=== PATIENT | female | born 1945 | race Caucasian/White ===

== ENCOUNTER 2020-03-30 22:44 | Inpatient (IN) | payer MEDICARE, SELFPAY ==
--- NOTE | ~2020-03-30 | CT_ITS ---
EXAMINATION: CTA chest PE protocol EXAM DATE: 03/31/2020 01:05 INDICATION: Elevated d-dimer. Dyspnea. TECHNIQUE: Spiral CTA of the chest (pulmonary arteries) was performed with 100 cc Omnipaque 350 intr avenous contrast injection. Images were acquired during the pulmonary arterial phase. Coronal maxi mum intensity projection 3D-reconstructions were created by the technologist on dedicated workstation . Axial, coronal and sagittal reformatted images were reviewed. The dose-length product (DLP) for t his examination was 715.57 mGy-cm. The exposure was tailored according to patient size (auto mA exp osure control), and iterative reconstruction (ASIR) was used as additional dose reduction technique. There is no prior study for comparison. FINDINGS: Positive for subsegmental right lower lobe pulmonary embolism, low clot burden. No thoracic aortic dissection. There is mild cardiomegaly. There are small to moderate pleural effusions there is interlobular septal thickening with mild interspersed groundglass opacities, evidence of pulmonary edema. Appearance is most consistent with CHF exacerbation. Tracheobronchial tree is patent. There is prevascular lymph node measuring 2.2 x 1.6 cm. Similar sized There is no pneumothorax. Ther e is mild coronary arterial calcification, arterial sclerosis. Upper abdomen is unremarkable. Ther e is moderate thoracic spondylosis without osteoblastic or osteolytic lesions identified. IMPRESSION: 1. Right lower lobe subsegmental pulmonary embolism. 2. Cardiomegaly, pulmonary edema. 3. Small to moderate pleural effusions. 4. Mediastinal, prevascular lymphadenopathy probably reactive but a follow-up chest CT should be obt ained in 3 months. Reviewed, dictated and finalized at location D. ITAL SUPERINTENDENT IMPRESSION: 1. Right lower lobe subsegmental pulmonary embolism. 2. Cardiomegaly, pulmonary edema. 3. Small to moderate pleural effusions. 4. Mediastinal, prevascular lymphadenopathy probably reactive but a follow-up chest CT should be obtained in 3 months.
--- NOTE | ~2020-03-30 | XR_ITS ---
EXAMINATION: XR chest 2V DATE: 03/30/2020 23:42 INDICATION: Dyspnea. TECHNIQUE: Frontal and lateral views of the chest were obtained on 2 radiographs. COMPARISON: None. FINDINGS: There is a diffuse interstitial pattern in the lungs, consistent with mild pulmonary edema. No pleural effusion or pneumothorax. The heart size is normal. IMPRESSION: 1. Mild pulmonary edema. Reviewed, dictated and finalized at location A. ER OPERATOR HELPER IMPRESSION: 1. Mild pulmonary edema.
--- NOTE | 2020-03-30 22:53 | ED.SOB ---
HPI - SOB/Dyspnea General Chief Complaint: Shortness of Breath/Dyspnea Stated Complaint: AMB Time Seen by Provider: 03/30/20 23:02 Source: patient and EMS Mode of arrival: EMS Limitations: no limitations History of Present Illness HPI Narrative: patient states that she has felt like there has been some pressure in her abdomen pushing up into her chest. This has been going on for couple of months. Today her shortness of breath became worse. She has a history of hypertension and type 2 diabetes but is not been to the doctor for refills in several months. She also states she has been having black stools for 2 months. She has been using some Gas-X to help with the abdominal pressure but today it is not helping. EM TS report that the house is in shambles, with bottles of urine on the floor, used batteries, or ill, there is no heat and there was a space heater near her bed. MD elicited complaint: shortness of breath Pertinent past history: diabetes Onset (ago): day(s) (1) Timing: intermittent and progressively worsening Severity: moderate Exacerbating factors: lying flat Relieving factors: nothing Known history of: diabetes Treatment prior to arrival: none Related Data Home oxygen amount: none Home Medications Medication Instructions Recorded Confirmed bupropion HCl 300 mg PO DAILY 03/30/20 03/30/20 carvedilol 25 mg PO DAILY 03/30/20 03/30/20 escitalopram oxalate 20 mg PO DAILY 03/30/20 03/30/20 furosemide 40 mg PO DAILY 03/30/20 03/30/20 insulin glargine [Lantus Solostar 50 unit SUBCUT HS 03/30/20 03/30/20 U-100 Insulin] insulin lispro 30 unit SUBCUT TIDWMEAL 03/30/20 03/30/20 lisinopril 40 mg PO DAILY 03/30/20 03/30/20 rosuvastatin [Crestor] 20 mg PO DAILY 03/30/20 03/30/20 Allergies Allergy/AdvReac Type Severity Reaction Status Date / Time No Known Allergies Allergy Verified 03/30/20 23:21 Review of Systems Review of Systems: All systems reviewed & are unremarkable except as noted in HPI and below Constitutional: Constitutional: Denies chills and Denies fever(s) ENT: Reports system reviewed and no additional complaints, except as documented Cardiovascular: Cardiovascular: Reports no additional cardiovascular complaints Respiratory: Respiratory: Reports as per HPI, Denies cough and Denies wheezing Gastrointestinal: Gastrointestinal: Reports melena and Reports bloating Genitourinary: Genitourinary: Reports no additional female genitourinary complaints Musculoskeletal: Musculoskeletal: Reports no additional musculoskeletal complaints [facility] Past Medical History Medical History (Updated 03/31/20 @ 03:12 by Gadiel Grajeda MD) Anxiety and depression Hyperlipidemia Hypertension Type 2 diabetes mellitus Social History Social History (Updated 03/30/20 @ 23:49 by Gadiel Grajeda MD) Smoking status: Former smoker Alcohol intake: never Substance use: never Exam Const: General: no acute distress and ill appearing Nutritional Appearance: well nourished Orientation/consciousness: patient oriented x3 HENMT: Head: normal to inspection and atraumatic Ears: hearing grossly normal bilaterally and external ears normal General nose exam: Normal external nose present Face and sinus: normal facial exam Eyes: Conjunctivae: conjunctival abnormality bilateral pallor Pupils: Equal, round and reactive pupils present Neck: Neck: normal visual inspection Resp: Effort & Inspection: normal respiratory effort Auscultation: clear to auscultation bilaterally Cardio: Rate: regular rate and tachycardic GI: GI Palp: Yes Soft to palpation and No Tenderness to palpation present (GI) Auscultation: normal bowel sounds Back/Spine/Pelvis: Cervical Spine: cervical ROM normal Thoracic/Lumbar Spine: thoraco-lumbar ROM normal Skin: General skin exam: pallor Rashes: no rashes Neuro: General: patient oriented x3, moves all extremities and no focal motor deficits Speech: normal speech Extrem: General: normal to
[2020-03-30 23:00] VITALS: BP 184/99; PULSE 129; RESP 22; TEMP 36.6; O2SAT 89
[2020-03-30 23:15] VITALS: PULSE 129
[2020-03-30 23:20] VITALS: O2SAT 88
[2020-03-30 23:37] LABS: Basophils Absolute Auto 0.03 K/mm3 (0.00-0.10); Basophils Percent Auto 0.2 % (0.0-1.0); Eosinophils Absolute Auto 0.16 K/mm3 (0.02-0.50); Eosinophils Percent Auto 1.3 % (1.0-6.0); Hematocrit 39.8 % (35.0-42.0); Hemoglobin 13.3 g/dL (11.7-13.8); Immature Granulocyte Absolute 0.06 K/mm3 (0.00-0.00); Immature Granulocyte Percent A 0.5 % (0.0-0.0); Lymphocytes Absolute Auto 1.75 K/mm3 (1.10-4.50); Lymphocytes Percent Auto 14.5 % (18.0-42.0); Mean Corpuscular HGB Conc 33.4 g/dL (32.0-36.0); Mean Corpuscular Hemoglobin 30.9 pg (27.0-31.0); Mean Corpuscular Volume 92.3 fL (78.0-102.0); Mean Platelet Volume 10.3 fl (9.2-11.8); Monocytes Absolute Auto 0.64 K/mm3 (0.10-0.90); Monocytes Percent Auto 5.3 % (2.0-11.0); Neutrophils Absolute Auto 9.4 K/mm3 (1.7-7.2); Neutrophils Percent Auto 78.2 % (50.0-70.0); Platelet Count Result 271 K/mm3 (150-420); Red Blood Count 4.31 M/mm3 (4.20-5.40); Red Cell Distribution Width 12.1 % (11.6-14.4); White Blood Count 12.1 K/mm3 (4.8-10.8)
[2020-03-30 23:44] LABS: Hemoglobin A1C 10.4 % (<5.7)
[2020-03-30 23:48] VITALS: PULSE 128; RESP 17; O2SAT 99
[2020-03-30 23:49] LABS: Partial Thromboplastin Time 25.9 SEC (23.90-30.70)
[2020-03-30 23:52] LABS: Alanine Aminotransferase 18 U/L (14-59); Albumin Level 3.1 g/dL (3.4-5.0); Alkaline Phosphatase 138 U/L (46-116); Anion Gap 12 mmol/L (8-16); Aspartate Amino Transferase 22 U/L (15-37); Bilirubin,Total 0.5 mg/dL (0.00-1.00); Blood Urea Nitrogen 15 mg/dL (7-18); Calcium 9.3 mg/dL (8.5-10.1); Carbon Dioxide 26 mmol/L (21-32); Chloride 100 mmol/L (98-108); Estimated CRCL calculation 46 ml/min; Estimated Glomerular Filt Rate 46; Magnesium 1.4 mg/dL (1.8-2.4); Osmolality Calculated 304 mOsm/kg (285-295); Potassium 4.6 mmol/L (3.5-5.1); Sodium 138 mmol/L (136-145); Total Protein 7.8 g/dL (6.4-8.2)
[2020-03-30 23:55] LABS: BNP 623 pg/mL (0-100)
[2020-03-30 23:56] LABS: Glucose 431 mg/dL (70-99)
[2020-03-31] VITALS (35 sets, daily range): BP systolic 108–204; BP diastolic 58–136; PULSE 96–140; RESP 12–30; TEMP 36.6–37.6; O2SAT 91–100; BMI 35.3
[2020-03-31 00:08] LABS: Occult Blood Negative (Negative)
[2020-03-31 00:11] LABS: D Dimer 2.82 mg/L (0.19-0.50)
[2020-03-31] MEDS: INSULIN HUMAN REGULAR (*BKC) 100 UNITS/ML 20 UNITS SUB-Q (00:18)
[2020-03-31] MEDS: hydrALAZINE HCL 25 MG TABLET PO (01:17)
[2020-03-31] MEDS: cloNIDine HCL 0.2 MG TABLET PO (01:17)
[2020-03-31] MEDS: FUROSEMIDE INJ 40 MG/4 ML VIAL 20 MG IV PUSH (01:24)
[2020-03-31] MEDS: FUROSEMIDE INJ 40 MG/4 ML VIAL IV PUSH ×3 (01:24→16:47)
[2020-03-31 02:22] LABS: Glucose Point of Care 296 (65-105)
--- NOTE | 2020-03-31 02:24 | PC.NURSE ---
Pt. resting more comfortably, VSS at this time. Mon continues to show Junctional Tach. BS now noted at 296. ERP made aware.
--- NOTE | 2020-03-31 03:04 | PC.NURSE ---
ERP spoke c pt. Orders to admit.
--- NOTE | 2020-03-31 04:06 | ADMGEN ---
This patient, Teri Harrington, was admitted to 2nd Floor Room 208-2 with diagnosis of CHF and PE. Patient/family oriented to hospital policies and general routines including ID bracelet, bed and alarms, visiting hours, pain management, procedures, bathroom and other care routines, personal items, smoking policy, room service/diet, and visiting hours. Information on how to activate the Rapid Response Team has been discussed. Patient/Family are encouraged to report perceived risks to care and to ask questions if they do not understand what they are told or what they should do.
[2020-03-31 07:39] LABS: Glucose Point of Care 181 (65-105)
[2020-03-31 08:09] LABS: Hematocrit 37.8 % (35.0-42.0); Hemoglobin 12.6 g/dL (11.7-13.8); Mean Corpuscular HGB Conc 33.3 g/dL (32.0-36.0); Mean Corpuscular Hemoglobin 30.7 pg (27.0-31.0); Mean Platelet Volume 9.9 fl (9.2-11.8); Platelet Count Result 267 K/mm3 (150-420); Red Blood Count 4.11 M/mm3 (4.20-5.40); Red Cell Distribution Width 12.3 % (11.6-14.4); White Blood Count 8.6 K/mm3 (4.8-10.8)
[2020-03-31 08:26] LABS: Alanine Aminotransferase 17 U/L (14-59); Albumin Level 2.9 g/dL (3.4-5.0); Alkaline Phosphatase 111 U/L (46-116); Anion Gap 10 mmol/L (8-16); Aspartate Amino Transferase 13 U/L (15-37); Bilirubin,Total 0.5 mg/dL (0.00-1.00); Blood Urea Nitrogen 15 mg/dL (7-18); Calcium 9.1 mg/dL (8.5-10.1); Carbon Dioxide 29 mmol/L (21-32); Chloride 100 mmol/L (98-108); Estimated CRCL calculation 46 ml/min; Estimated Glomerular Filt Rate 50; Glucose 200 mg/dL (70-99); Osmolality Calculated 294 mOsm/kg (285-295); Potassium 4.9 mmol/L (3.5-5.1); Sodium 139 mmol/L (136-145); Total Protein 6.9 g/dL (6.4-8.2)
[2020-03-31] MEDS: ROSUVASTATIN 5 MG TABLET 20 MG PO (09:10)
[2020-03-31] MEDS: ESCITALOPRAM OXALATE 10 MG TABLET 20 MG PO (09:11)
[2020-03-31] MEDS: lisinopriL 10 MG TABLET 40 MG PO (09:11)
[2020-03-31] MEDS: buPROPion HCL XL (24 HR) 150 MG TABCR 300 MG PO (09:11)
[2020-03-31] MEDS: ENOXAPARIN 100 MG/ML SYRINGE SUB-Q ×2 (09:53→20:52)
--- NOTE | 2020-03-31 10:46 | PM.IMHP ---
H&P: HPI History of Present Illness Date/Time: 03/31/20 10:46 <TOM Klein - Last Filed: 03/31/20 11:10> Chief Complaint: Shortness of breath dyspnea <TOM Klein - Last Filed: 03/31/20 11:10> Narrative: Teri Harrington is a 74 year old female that presented to our ED with shortness of breath and dyspnea. Patient has a past medical history of anxiety and depression, hyperlipidemia, hypertension, and type 2 diabetes. Patient noted that her condition has been declining for several months she has been bed bound as a result of depression for couple of months now. According to patient she developed shortness of breath a couple of days ago and EMS had to be called. Patient does stay at home with her 2 sons. According to EMS patient's living environment was unacceptable. According to the report there are several bottles of urine l throughout the house, floor board were dry rotted, railroad car checker throughout the house. No running water or heat working in the home. Patient has agreed [facility] to a [facility] due to her poor environment.CTA indicate right lower lobe PE, WBC on admission 12.1, creatinine 1.16, glucose 431, magnesium 1.4, occult blood negative patient is being admitted for PE in to rule out congestive heart failure. Patient was given 40 mg of Lasix. the patient denies SOB, CP, palpitation, extremity numbness, lightheadedness, dizziness, constipation, diarrhea, chills, or fever. Patient was hesitant to agree to discharge to a penitentiary due to her concerns of her grown adult sons, she did agree to discharge to a penitentiary. Patient did note she has not been compliant with her medications for approximately 2 months .. <TOM Klein - Last Filed: 03/31/20 11:10> Review of Systems Review of Systems: All systems reviewed & are unremarkable except as noted in HPI and below (10 point system review) <TOM Klein - Last Filed: 03/31/20 11:10> [facility] Past Medical History Medical History: Medical History (Updated 03/31/20 @ 03:12 by Gadiel Grajeda MD) Anxiety and depression Hyperlipidemia Hypertension Type 2 diabetes mellitus <TOM Klein - Last Filed: 03/31/20 11:10> Family History Family History: Family History Mother Breast cancer <TOM Klein - Last Filed: 03/31/20 11:10> Social History Social History: Social History (Updated 03/30/20 @ 23:49 by Gadiel Grajeda MD) Smoking status: Never smoker Alcohol intake: never Substance use: never Gender identity (if verbalized by the patient): Female Sexual Orientation (if Verbalized by the Patient): Straight or Heterosexual Spiritual care concerns: No <TOM Klein - Last Filed: 03/31/20 11:10> Meds Home Medications and Allergies Home medications: Home Medications Medication Instructions Recorded Confirmed Type bupropion HCl 300 mg PO DAILY 03/30/20 03/30/20 History carvedilol 25 mg PO DAILY 03/30/20 03/30/20 History escitalopram oxalate 20 mg PO DAILY 03/30/20 03/30/20 History furosemide 40 mg PO DAILY 03/30/20 03/30/20 History insulin glargine [Lantus Solostar 50 unit SUBCUT HS 03/30/20 03/30/20 History U-100 Insulin] insulin lispro 30 unit SUBCUT TIDWMEAL 03/30/20 03/30/20 History lisinopril 40 mg PO DAILY 03/30/20 03/30/20 History rosuvastatin [Crestor] 20 mg PO DAILY 03/30/20 03/30/20 History <TOM Klein - Last Filed: 03/31/20 11:10> Allergies/Adverse reactions: Allergies Allergy/AdvReac Type Severity Reaction Status Date / Time No Known Allergies Allergy Verified 03/30/20 23:21 <TOM Klein - Last Filed: 03/31/20 11:10> Vital Signs Vital Signs - 24 hr 03/30/20 23:00 03/30/20 23:15 03/30/20 23:20 Temperature 98 F Pulse Rate 129 H 129 H Respiratory Rate 22 H Blood Pressure 184/99 H Pulse Oximetry 89 L 88 L
[2020-03-31 11:03] LABS: Magnesium 1.4 mg/dL (1.8-2.4)
[2020-03-31 11:43] LABS: Glucose Point of Care 285 (65-105)
[2020-03-31 17:00] LABS: Glucose Point of Care 300 (65-105)
[2020-03-31 20:49] LABS: Glucose Point of Care 287 (65-105)
[2020-03-31] MEDS: INSULIN GLARGINE (*BKC) 100 UNITS/ML 25 UNITS SUB-Q (20:52)
--- NOTE | 2020-03-31 21:03 | PC.NURSE ---
pt sleeping off and on. easy to arouse. call moe in reach. cristian crackers given for hs snack per pt request.
--- NOTE | 2020-03-31 22:07 | PC.NURSE ---
pt sleeping, head of bed elevated at a level of comfort. call moe in reach.
--- NOTE | 2020-04-01 01:56 | PC.NURSE ---
0100 pt sleeping, no distress noted. 0150 pt sleeping, resp even unlabored. no distress.
--- NOTE | 2020-04-01 02:52 | PC.NURSE ---
pt sleeping, left undisturbed. no resp distress noted. call moe in reach.
[2020-04-01 03:31] VITALS: BP 133/73; PULSE 91; RESP 20; TEMP 36.9; O2SAT 94
[2020-04-01 06:04] LABS: Hematocrit 34.8 % (35.0-42.0); Hemoglobin 11.5 g/dL (11.7-13.8); Mean Corpuscular Hemoglobin 30.4 pg (27.0-31.0); Mean Corpuscular Volume 92.1 fL (78.0-102.0); Platelet Count Result 239 K/mm3 (150-420); Red Blood Count 3.78 M/mm3 (4.20-5.40); Red Cell Distribution Width 12.1 % (11.6-14.4); White Blood Count 6.2 K/mm3 (4.8-10.8)
--- NOTE | 2020-04-01 06:21 | PC.NURSE ---
pt sleeping, left undisturbed. call moe in reach.
[2020-04-01 06:23] LABS: Alanine Aminotransferase 16 U/L (14-59); Albumin Level 2.7 g/dL (3.4-5.0); Alkaline Phosphatase 96 U/L (46-116); Anion Gap 7 mmol/L (8-16); Aspartate Amino Transferase 14 U/L (15-37); Bilirubin,Total 0.5 mg/dL (0.00-1.00); Blood Urea Nitrogen 19 mg/dL (7-18); Calcium 8.6 mg/dL (8.5-10.1); Carbon Dioxide 31 mmol/L (21-32); Chloride 101 mmol/L (98-108); Estimated CRCL calculation 42 ml/min; Estimated Glomerular Filt Rate 44; Glucose 246 mg/dL (70-99); Osmolality Calculated 298 mOsm/kg (285-295); Sodium 139 mmol/L (136-145); Total Protein 6.5 g/dL (6.4-8.2)
--- NOTE | 2020-04-01 07:04 | PC.NURSE ---
report to BETITO Love.
[2020-04-01 07:42] LABS: Glucose Point of Care 208 (65-105)
[2020-04-01 07:45] LABS: Magnesium 1.6 mg/dL (1.8-2.4)
[2020-04-01 07:55] LABS: BNP 142 pg/mL (0-100)
[2020-04-01 08:00] VITALS: BP 108/62; PULSE 96; PULSE 98; RESP 18; TEMP 36.4; O2SAT 96
[2020-04-01] MEDS: MAGNESIUM SULF 4 GM/WATER100ML 4 GM/100 ML BAG IVPB (09:01)
[2020-04-01] MEDS: FUROSEMIDE INJ 40 MG/4 ML VIAL IV PUSH ×2 (09:04→16:49)
[2020-04-01] MEDS: ESCITALOPRAM OXALATE 10 MG TABLET 20 MG PO (09:04)
[2020-04-01] MEDS: ENOXAPARIN 100 MG/ML SYRINGE SUB-Q ×2 (09:04→20:58)
[2020-04-01] MEDS: lisinopriL 10 MG TABLET 40 MG PO (09:05)
[2020-04-01] MEDS: ROSUVASTATIN 5 MG TABLET 20 MG PO (09:05)
[2020-04-01] MEDS: buPROPion HCL XL (24 HR) 150 MG TABCR 300 MG PO (09:05)
--- NOTE | 2020-04-01 11:13 | PC.NURSE ---
Aaron catheter removed per [employer] Meek
[2020-04-01 11:37] LABS: Glucose Point of Care 308 (65-105)
[2020-04-01 12:00] VITALS: BP 130/61; PULSE 73; PULSE 86; RESP 18; TEMP 36.6; O2SAT 95
--- NOTE | 2020-04-01 12:42 | P.PN_ITS ---
Progress Note: A&P Assessment and Plan (1) Pulmonary embolism: Qualifiers: Pulmonary embolism type: single subsegmental (without acute cor pulmonale) Qualified Code(s): I26.93 - Single subsegmental pulmonary embolism without acute cor pulmonale Code(s): I26.99 - Other pulmonary embolism without acute cor pulmonale Status: Acute Assessment and Plan: * D-dimer 2.82 * CTA indicates PE * Patient currently on Lovenox will start Eliquis (2) CHF (congestive heart failure): Qualifiers: Heart failure chronicity: acute on chronic Heart failure type: systolic Qualified Code(s): I50.23 - Acute on chronic systolic (congestive) heart failure Code(s): I50.9 - Heart failure, unspecified Status: Acute Assessment and Plan: * Patient BNP 623-->142 * Chest x-ray mild pulmonary edema * Continue Lasix 40 mg twice daily, given 40 mg in ED * Continue daily weights, review * Continue strict I&O, will be * Echo pending (3) Type 2 diabetes mellitus: Qualifiers: Diabetes mellitus complication status: with hyperglycemia Diabetes mellitus ocean transportation intermediary insulin use: with ocean transportation intermediary use Qualified Code(s): E11.65 - Type 2 diabetes mellitus with hyperglycemia; Z79.4 - parts counterman (current) use of insulin Code(s): E11.9 - Type 2 diabetes mellitus without complications Status: Acute Assessment and Plan: * Patient blood sugar 400 on admission currently 308 * Patient noncompliant with medication and diet * Started patient on sliding scale with Accu-Cheks and hypoglycemic protocol Will adjust medication as needed * A1c 10.4 * Continue diabetic diet * Will adjust medication as needed (4) Anxiety and depression: Code(s): F41.9 - Anxiety disorder, unspecified; F32.9 - Major depressive disorder, single episode, unspecified Status: Acute Assessment and Plan: * Continue home medication not therapeutic due to noncompliance (5) Hyperlipidemia: Code(s): E78.5 - Hyperlipidemia, unspecified Status: Acute Assessment and Plan: * Continue statins (6) Hypertension: Qualifiers: Hypertension type: essential hypertension Qualified Code(s): I10 - Essential (primary) hypertension Code(s): I10 - Essential (primary) hypertension Status: Acute Assessment and Plan: * Stable * Patient blood pressure elevated on admission given clonidine and lisinopril in the ED * Will continue home medication carvedilol and lisinopril Review of Systems Review of Systems: All systems reviewed & are unremarkable except as noted in HPI and below (10 point system review) Exam Narrative: Exam Narrative: GENERAL: This is a well-nourished, well-developed patient, in no apparent distress. HEAD: normocephalic, atraumatic. EYES: PERRL. Sclera clear/white. Vision is grossly intact. EARS: External ears normal, auditory canals clear and without drainage, TMs normal without perforation. Hearing grossly intact. NOSE: External nose normal with no obvious nasal discharge, nares without redness, no rhinorrhea. THROAT: Mucous membranes moist, posterior pharynx clear. NECK: Neck supple, non-tender without lymphadenopathy, masses or thyromegaly. CARDIOVASCULAR: Regular rate and rhythm without murmurs, gallops, or rubs. RESPIRATORY: Clear to auscultation. Breath sounds equal bilaterally. No wheezes, rales, or rhonchi. GASTROINTESTINAL: Abdomen soft, non-tender, nondistended. Bowel sounds are active. No hepato-splenomegaly, or palpable masses. No guarding. SKIN: warm, intact with
--- NOTE | 2020-04-01 12:42 | WPDPN ---
Progress Note: A&P Assessment and Plan (1) Pulmonary embolism: Qualifiers: Pulmonary embolism type: single subsegmental (without acute cor pulmonale) Qualified Code(s): I26.93 - Single subsegmental pulmonary embolism without acute cor pulmonale Code(s): I26.99 - Other pulmonary embolism without acute cor pulmonale Status: Acute Assessment and Plan: D-dimer 2.82 CTA indicates PE Patient currently on Lovenox will start Eliquis (2) CHF (congestive heart failure): Qualifiers: Heart failure chronicity: acute on chronic Heart failure type: systolic Qualified Code(s): I50.23 - Acute on chronic systolic (congestive) heart failure Code(s): I50.9 - Heart failure, unspecified Status: Acute Assessment and Plan: Patient BNP 623-->142 Chest x-ray mild pulmonary edema Continue Lasix 40 mg twice daily, given 40 mg in ED Continue daily weights, review Continue strict I&O, will be Echo pending (3) Type 2 diabetes mellitus: Qualifiers: Diabetes mellitus complication status: with hyperglycemia Diabetes mellitus nursing home insulin use: with nursing home use Qualified Code(s): E11.65 - Type 2 diabetes mellitus with hyperglycemia; Z79.4 - assistant terminal manager (current) use of insulin Code(s): E11.9 - Type 2 diabetes mellitus without complications Status: Acute Assessment and Plan: Patient blood sugar 400 on admission currently 308 Patient noncompliant with medication and diet Started patient on sliding scale with Accu-Cheks and hypoglycemic protocol Will adjust medication as needed A1c 10.4 Continue diabetic diet Will adjust medication as needed (4) Anxiety and depression: Code(s): F41.9 - Anxiety disorder, unspecified; F32.9 - Major depressive disorder, single episode, unspecified Status: Acute Assessment and Plan: Continue home medication not therapeutic due to noncompliance (5) Hyperlipidemia: Code(s): E78.5 - Hyperlipidemia, unspecified Status: Acute Assessment and Plan: Continue statins (6) Hypertension: Qualifiers: Hypertension type: essential hypertension Qualified Code(s): I10 - Essential (primary) hypertension Code(s): I10 - Essential (primary) hypertension Status: Acute Assessment and Plan: Stable Patient blood pressure elevated on admission given clonidine and lisinopril in the ED Will continue home medication carvedilol and lisinopril Review of Systems Review of Systems: All systems reviewed & are unremarkable except as noted in HPI and below (10 point system review) Exam Narrative: Exam Narrative: GENERAL: This is a well-nourished, well-developed patient, in no apparent distress. HEAD: normocephalic, atraumatic. EYES: PERRL. Sclera clear/white. Vision is grossly intact. EARS: External ears normal, auditory canals clear and without drainage, TMs normal without perforation. Hearing grossly intact. NOSE: External nose normal with no obvious nasal discharge, nares without redness, no rhinorrhea. THROAT: Mucous membranes moist, posterior pharynx clear. NECK: Neck supple, non-tender without lymphadenopathy, masses or thyromegaly. CARDIOVASCULAR: Regular rate and rhythm without murmurs, gallops, or rubs. RESPIRATORY: Clear to auscultation. Breath sounds equal bilaterally. No wheezes, rales, or rhonchi. GASTROINTESTINAL: Abdomen soft, non-tender, nondistended. Bowel sounds are active. No hepato-splenomegaly, or palpable masses. No guarding. SKIN: warm, intact with no suspicious lesions or rash, good texture and turgor. NEURO: awake, alert, and oriented to person, place and time. There were no obvious focal neurologic abnormalities. EXTREMITIES: Normal range of motion. No edema. No calf tenderness. Negative Homans sign bilaterally. BACK: Nontender without deformity or crepitance. No flank tenderness Psychiatric: Depressed sadness Objective Data Vital Signs Ananya
[2020-04-01 13:15] LABS: Magnesium 2.4 mg/dL (1.8-2.4)
--- NOTE | 2020-04-01 13:16 | ECG_ITS ---
Measurements Intervals [place] Rate: 97 P: -34 ND: 192 QRS: -80 QRSD: 142 T: 113 QT: 441 QTc: 563 Interpretive Statements SINUS RHYTHM RIGHT BUNDLE BRANCH BLOCK LEFT ANTERIOR FASCICULAR BLOCK ABNORMAL ECG Electronically Signed On 04-01-2020 14:57:58 GENERAL PRACTITIONER by Idris Do D.O.
[2020-04-01 15:04] LABS: SARS-CoV-2 Ag Negative (Negative)
[2020-04-01 15:46] VITALS: BP 132/72; PULSE 91; PULSE 93; RESP 16; TEMP 36.2; O2SAT 95
[2020-04-01 16:59] LABS: Glucose Point of Care 185 (65-105)
[2020-04-01 19:54] VITALS: PULSE 96
[2020-04-01 19:58] VITALS: BP 142/68; PULSE 96; RESP 20; TEMP 36.2; O2SAT 95
[2020-04-01] MEDS: INSULIN GLARGINE (*BKC) 100 UNITS/ML 50 UNITS SUB-Q (20:58)
[2020-04-01 21:03] LABS: Glucose Point of Care 314 (65-105)
[2020-04-02] VITALS: BP 122/56; PULSE 82; RESP 18; TEMP 36.9; O2SAT 94
[2020-04-02 04:00] VITALS: BP 132/54; PULSE 90; RESP 20; TEMP 36.4; O2SAT 95
[2020-04-02 05:34] LABS: Hematocrit 33.6 % (35.0-42.0); Hemoglobin 11.2 g/dL (11.7-13.8); Mean Corpuscular HGB Conc 33.3 g/dL (32.0-36.0); Mean Corpuscular Hemoglobin 30.7 pg (27.0-31.0); Mean Corpuscular Volume 92.1 fL (78.0-102.0); Mean Platelet Volume 10.2 fl (9.2-11.8); Platelet Count Result 246 K/mm3 (150-420); Red Blood Count 3.65 M/mm3 (4.20-5.40); White Blood Count 5.9 K/mm3 (4.8-10.8)
[2020-04-02 06:09] LABS: Alanine Aminotransferase 16 U/L (14-59); Albumin Level 2.9 g/dL (3.4-5.0); Alkaline Phosphatase 99 U/L (46-116); Anion Gap 7 mmol/L (8-16); Aspartate Amino Transferase 13 U/L (15-37); Bilirubin,Total 0.5 mg/dL (0.00-1.00); Blood Urea Nitrogen 23 mg/dL (7-18); Calcium 8.6 mg/dL (8.5-10.1); Carbon Dioxide 32 mmol/L (21-32); Chloride 101 mmol/L (98-108); Estimated CRCL calculation 44 ml/min; Estimated Glomerular Filt Rate 47; Glucose 169 mg/dL (70-99); Osmolality Calculated 297 mOsm/kg (285-295); Potassium 3.7 mmol/L (3.5-5.1); Sodium 140 mmol/L (136-145); Total Protein 6.4 g/dL (6.4-8.2)
[2020-04-02 08:00] VITALS: BP 132/56; PULSE 84; RESP 18; TEMP 36.6; O2SAT 95
[2020-04-02] MEDS: ENOXAPARIN 100 MG/ML SYRINGE SUB-Q ×2 (08:57→21:00)
[2020-04-02] MEDS: FUROSEMIDE INJ 40 MG/4 ML VIAL IV PUSH ×2 (08:57→17:01)
[2020-04-02] MEDS: ROSUVASTATIN 5 MG TABLET 20 MG PO (08:58)
[2020-04-02] MEDS: buPROPion HCL XL (24 HR) 150 MG TABCR 300 MG PO (08:58)
[2020-04-02] MEDS: lisinopriL 10 MG TABLET 40 MG PO (08:58)
[2020-04-02] MEDS: ESCITALOPRAM OXALATE 10 MG TABLET 20 MG PO (08:58)
[2020-04-02 11:34] LABS: Glucose Point of Care 235 (65-105)
--- NOTE | 2020-04-02 13:19 | P.DS_ITS ---
DS: Admitting Diagnosis Admitting Diagnosis Admitting Diagnosis: PE congestive heart failure <Meek VirginiaTOM Durant - Last Filed: 04/03/20 12:28> DS: Discharge Diagnosis Discharge Diagnosis (1) Pulmonary embolism: Qualifiers: Pulmonary embolism type: single subsegmental (without acute cor pulmonale) Qualified Code(s): I26.93 - Single subsegmental pulmonary embolism without acute cor pulmonale <TOM Klein - Last Filed: 04/03/20 12:28> Code(s): I26.99 - Other pulmonary embolism without acute cor pulmonale <Palbryant VirginiaTOM Durant - Last Filed: 04/03/20 12:28> Status: Acute <Palbryant VirginiaTOM Durant - Last Filed: 04/03/20 12:28> Assessment and Plan: * D-dimer 2.82 * CTA indicates PE * Patient currently on Lovenox will start Eliquis if insurance approves if not we will start patient on warfarin <TOM Klein - Last Filed: 04/03/20 12:28> (2) CHF (congestive heart failure): Qualifiers: Heart failure chronicity: acute on chronic Heart failure type: systolic Qualified Code(s): I50.23 - Acute on chronic systolic (congestive) heart failure <Meek VirginiaTOM Durant - Last Filed: 04/03/20 12:28> Code(s): I50.9 - Heart failure, unspecified <TOM Klein - Last Filed: 04/03/20 12:28> Status: Acute <Palbryant VirginiaTOM Durant - Last Filed: 04/03/20 12:28> Assessment and Plan: * Patient BNP 623-->142 * Chest x-ray mild pulmonary edema * Continue Lasix 40 mg twice daily, given 40 mg in ED * Continue daily weights, review * Continue strict I&O, will be * Echo pending <TOM Klein - Last Filed: 04/03/20 12:28> (3) Type 2 diabetes mellitus: Qualifiers: Diabetes mellitus complication status: with hyperglycemia Diabetes mellitus intermodal dispatcher insulin use: with group home use Qualified Code(s): E11.65 - Type 2 diabetes mellitus with hyperglycemia; Z79.4 - retirement (current) use of insulin <TOM Klein - Last Filed: 04/03/20 12:28> Code(s): E11.9 - Type 2 diabetes mellitus without complications <Meek VirginiaTOM Durant - Last Filed: 04/03/20 12:28> Status: Acute <Meek VirginiaTOM Durant - Last Filed: 04/03/20 12:28> Assessment and Plan: * Patient blood sugar 400 on admission currently 169 * Patient noncompliant with medication and diet * Started patient on sliding scale with Accu-Cheks and hypoglycemic protocol Rd l adjust medication as needed * A1c 10.4 * Continue diabetic diet * Will adjust medication as needed <TOM Klein - Last Filed: 04/03/20 12:28> (4) Anxiety and depression: Code(s): F41.9 - Anxiety disorder, unspecified; F32.9 - Major depressive disorder, single episode, unspecified <TOM Klein - Last Filed: 04/03/20 12:28> Status: Acute <TOM Klein - Last Filed: 04/03/20 12:28> Assessment and Plan: * Continue home medication not therapeutic due to noncompliance <TOM Klein - Last Filed: 04/03/20 12:28> (5) Hyperlipidemia: Code(s): E78.5 - Hyperlipidemia, unspecified <TOM Klein - Last Filed: 04/03/20 12:28> Status: Acute <TOM Klein - Last Filed: 04/03/20 12:28> Assessment and Plan: * Continue statins <TOM Klein - Last Filed: 04/03/20 12:28> (6) Hypertension: Qualifiers: Hypertension type: essential hypertension Qualified Code(s): I10 - Essential (primary) hypertension <TOM Klein - [place]
--- NOTE | 2020-04-02 13:19 | PM.DS ---
DS: Admitting Diagnosis Admitting Diagnosis Admitting Diagnosis: PE congestive heart failure <TOM Klein - Last Filed: 04/03/20 12:28> DS: Discharge Diagnosis Discharge Diagnosis (1) Pulmonary embolism: Qualifiers: Pulmonary embolism type: single subsegmental (without acute cor pulmonale) Qualified Code(s): I26.93 - Single subsegmental pulmonary embolism without acute cor pulmonale <TOM Klein - Last Filed: 04/03/20 12:28> Code(s): I26.99 - Other pulmonary embolism without acute cor pulmonale <TOM Klein - Last Filed: 04/03/20 12:28> Status: Acute <TOM Klein - Last Filed: 04/03/20 12:28> Assessment and Plan: D-dimer 2.82 CTA indicates PE Patient currently on Lovenox will start Eliquis if insurance approves if not we will start patient on warfarin <TOM Klein - Last Filed: 04/03/20 12:28> (2) CHF (congestive heart failure): Qualifiers: Heart failure chronicity: acute on chronic Heart failure type: systolic Qualified Code(s): I50.23 - Acute on chronic systolic (congestive) heart failure <TOM Klein - Last Filed: 04/03/20 12:28> Code(s): I50.9 - Heart failure, unspecified <TOM Klein - Last Filed: 04/03/20 12:28> Status: Acute <TOM Klein - Last Filed: 04/03/20 12:28> Assessment and Plan: Patient BNP 623-->142 Chest x-ray mild pulmonary edema Continue Lasix 40 mg twice daily, given 40 mg in ED Continue daily weights, review Continue strict I&O, will be Echo pending <TOM Klein - Last Filed: 04/03/20 12:28> (3) Type 2 diabetes mellitus: Qualifiers: Diabetes mellitus complication status: with hyperglycemia Diabetes mellitus ocean transportation intermediary insulin use: with ocean transportation intermediary use Qualified Code(s): E11.65 - Type 2 diabetes mellitus with hyperglycemia; Z79.4 - termite technician (current) use of insulin <TOM Klein - Last Filed: 04/03/20 12:28> Code(s): E11.9 - Type 2 diabetes mellitus without complications <Palbryant VirginiaTOM Durant - Last Filed: 04/03/20 12:28> Status: Acute <Palbryant VirginiaTOM Durant - Last Filed: 04/03/20 12:28> Assessment and Plan: Patient blood sugar 400 on admission currently 169 Patient noncompliant with medication and diet Started patient on sliding scale with Accu-Cheks and hypoglycemic protocol Will adjust medication as needed A1c 10.4 Continue diabetic diet Will adjust medication as needed <TOM Klein - Last Filed: 04/03/20 12:28> (4) Anxiety and depression: Code(s): F41.9 - Anxiety disorder, unspecified; F32.9 - Major depressive disorder, single episode, unspecified <TOM Klein - Last Filed: 04/03/20 12:28> Status: Acute <TOM Klein - Last Filed: 04/03/20 12:28> Assessment and Plan: Continue home medication not therapeutic due to noncompliance <TOM Klein - Last Filed: 04/03/20 12:28> (5) Hyperlipidemia: Code(s): E78.5 - Hyperlipidemia, unspecified <TOM Klein - Last Filed: 04/03/20 12:28> Status: Acute <TOM Klein - Last Filed: 04/03/20 12:28> Assessment and Plan: Continue statins <TOM Klein - Last Filed: 04/03/20 12:28> (6) Hypertension: Qualifiers: Hypertension type: essential hypertension Qualified Code(s): I10 - Essential (primary) hypertension <TOM Klein - Last Filed: 04/03/20 12:28> Code(s): I10 - Essential (primary) hypertension <TOM Klein - Last Filed: 04/03/20 12:28> Status: Acute <PETER Klein-C - Last Filed: 04/03/20 12:28> Assessment and Plan: Stable Patient blood pressure elevated on admission given clonidine and lisinopril in th
[2020-04-02] MEDS: LOPERAMIDE HCL 2 MG CAPSULE PO (15:54)
[2020-04-02 16:00] VITALS: BP 148/67; PULSE 95; RESP 18; TEMP 37.2; O2SAT 95
[2020-04-02 16:47] LABS: Glucose Point of Care 150 (65-105)
[2020-04-02 20:45] VITALS: BP 136/66; PULSE 89; RESP 18; TEMP 36.2; O2SAT 96
[2020-04-02] MEDS: INSULIN GLARGINE (*BKC) 100 UNITS/ML 50 UNITS SUB-Q (21:01)
[2020-04-02 21:14] LABS: Glucose Point of Care 283 (65-105)
[2020-04-03] VITALS: BP 133/61; PULSE 87; RESP 18; TEMP 36.7; O2SAT 95
--- NOTE | 2020-04-03 01:55 | PC.NURSE ---
pt sleeping, no evidence of distress noted at this time, call light and belongings within reach
[2020-04-03 03:25] VITALS: BP 136/62; PULSE 89; RESP 18; TEMP 36.6; O2SAT 96
[2020-04-03 05:45] LABS: Hematocrit 34.5 % (35.0-42.0); Hemoglobin 11.5 g/dL (11.7-13.8); Mean Corpuscular HGB Conc 33.3 g/dL (32.0-36.0); Mean Corpuscular Hemoglobin 30.3 pg (27.0-31.0); Mean Platelet Volume 10.4 fl (9.2-11.8); Platelet Count Result 290 K/mm3 (150-420); Red Blood Count 3.79 M/mm3 (4.20-5.40); White Blood Count 7.2 K/mm3 (4.8-10.8)
[2020-04-03 06:02] LABS: Alanine Aminotransferase 17 U/L (14-59); Albumin Level 3.1 g/dL (3.4-5.0); Alkaline Phosphatase 94 U/L (46-116); Anion Gap 5 mmol/L (8-16); Aspartate Amino Transferase 14 U/L (15-37); Bilirubin,Total 0.4 mg/dL (0.00-1.00); Blood Urea Nitrogen 21 mg/dL (7-18); Calcium 8.5 mg/dL (8.5-10.1); Carbon Dioxide 33 mmol/L (21-32); Chloride 103 mmol/L (98-108); Estimated CRCL calculation 45 ml/min; Estimated Glomerular Filt Rate 51; Glucose 57 mg/dL (70-99); Osmolality Calculated 293 mOsm/kg (285-295); Potassium 2.9 mmol/L (3.5-5.1); Sodium 141 mmol/L (136-145); Total Protein 6.5 g/dL (6.4-8.2)
--- NOTE | 2020-04-03 06:30 | PC.NURSE ---
pt's blood glucose was 57 when labs were drawn, pt given juice and snack per protocol
[2020-04-03 06:54] LABS: Glucose Point of Care 92 (65-105)
[2020-04-03 07:56] LABS: Glucose Point of Care 148 (65-105)
[2020-04-03 08:00] VITALS: BP 113/55; PULSE 87; RESP 16; TEMP 36.1; O2SAT 97
--- NOTE | 2020-04-03 08:20 | P.DS_ITS ---
DS: Admitting Diagnosis Admitting Diagnosis Admitting Diagnosis: PE, congestive heart failure DS: Discharge Diagnosis Discharge Diagnosis (1) Pulmonary embolism: Qualifiers: Pulmonary embolism type: single subsegmental (without acute cor pulmonale) Qualified Code(s): I26.93 - Single subsegmental pulmonary embolism without acute cor pulmonale Code(s): I26.99 - Other pulmonary embolism without acute cor pulmonale Status: Acute Assessment and Plan: * D-dimer 2.82 * CTA indicates PE * Patient will discharge with (2) CHF (congestive heart failure): Qualifiers: Heart failure chronicity: acute on chronic Heart failure type: systolic Qualified Code(s): I50.23 - Acute on chronic systolic (congestive) heart failure Code(s): I50.9 - Heart failure, unspecified Status: Acute Assessment and Plan: * Patient BNP 623-->142 * Chest x-ray mild pulmonary edema * Continue Lasix 40 mg twice daily, given 40 mg in ED * Continue daily weights, review * Continue strict I&O, will be * Echo pending (3) Type 2 diabetes mellitus: Qualifiers: Diabetes mellitus complication status: with hyperglycemia Diabetes mellitus intermediate designer insulin use: with mcfp use Qualified Code(s): E11.65 - Type 2 diabetes mellitus with hyperglycemia; Z79.4 - exterminator termite (current) use of insulin Code(s): E11.9 - Type 2 diabetes mellitus without complications Status: Acute Assessment and Plan: * Patient blood sugar 400 on admission currently 169 * Patient noncompliant with medication and diet * Started patient on sliding scale with Accu-Cheks and hypoglycemic protocol Will adjust medication as needed * A1c 10.4 (4) Anxiety and depression: Code(s): F41.9 - Anxiety disorder, unspecified; F32.9 - Major depressive disorder, single episode, unspecified Status: Acute Assessment and Plan: * Continue home medication not therapeutic due to noncompliance (5) Hyperlipidemia: Code(s): E78.5 - Hyperlipidemia, unspecified Status: Acute Assessment and Plan: * Continue statins (6) Hypertension: Qualifiers: Hypertension type: essential hypertension Qualified Code(s): I10 - Essential (primary) hypertension Code(s): I10 - Essential (primary) hypertension Status: Acute Assessment and Plan: * Stable * Patient blood pressure elevated on admission given clonidine and lisinopril in the ED * Will continue home medication carvedilol and lisinopril (7) Hypokalemia: Code(s): E87.6 - Hypokalemia Status: Acute Assessment and Plan: * Patient 2.9 she did receive a total of 80 mEq before discharge DS: Summary Hospital Course Reason for hospitalization: Status post mechanical fall Hospital Course: Teri Harrington is a 74 year old female that presented to our ED with shortness of breath and dyspnea. Patient has a past medical history of anxiety and depression, hyperlipidemia, hypertension, and type 2 diabetes. Patient noted that her condition has been declining for several months she has been bed bound as a result of depression for couple of months now. According to patient she developed shortness of breath and EMS had to be called. Patient does stay at home with her 2 sons. According to EMS patient's living environment was unacceptable. According to the report there was several bottles of urine throughout the house, floor board were dry rotted, j2ee consultant throughout the house. No running water or heat working in the home. Patient has agreed to discharge to a nursi
--- NOTE | 2020-04-03 08:20 | PM.DS ---
DS: Admitting Diagnosis Admitting Diagnosis Admitting Diagnosis: PE, congestive heart failure DS: Discharge Diagnosis Discharge Diagnosis (1) Pulmonary embolism: Qualifiers: Pulmonary embolism type: single subsegmental (without acute cor pulmonale) Qualified Code(s): I26.93 - Single subsegmental pulmonary embolism without acute cor pulmonale Code(s): I26.99 - Other pulmonary embolism without acute cor pulmonale Status: Acute Assessment and Plan: D-dimer 2.82 CTA indicates PE Patient will discharge with (2) CHF (congestive heart failure): Qualifiers: Heart failure chronicity: acute on chronic Heart failure type: systolic Qualified Code(s): I50.23 - Acute on chronic systolic (congestive) heart failure Code(s): I50.9 - Heart failure, unspecified Status: Acute Assessment and Plan: Patient BNP 623-->142 Chest x-ray mild pulmonary edema Continue Lasix 40 mg twice daily, given 40 mg in ED Continue daily weights, review Continue strict I&O, will be Echo pending (3) Type 2 diabetes mellitus: Qualifiers: Diabetes mellitus complication status: with hyperglycemia Diabetes mellitus nursing home insulin use: with buttermaker use Qualified Code(s): E11.65 - Type 2 diabetes mellitus with hyperglycemia; Z79.4 - prison (current) use of insulin Code(s): E11.9 - Type 2 diabetes mellitus without complications Status: Acute Assessment and Plan: Patient blood sugar 400 on admission currently 169 Patient noncompliant with medication and diet Started patient on sliding scale with Accu-Cheks and hypoglycemic protocol Will adjust medication as needed A1c 10.4 (4) Anxiety and depression: Code(s): F41.9 - Anxiety disorder, unspecified; F32.9 - Major depressive disorder, single episode, unspecified Status: Acute Assessment and Plan: Continue home medication not therapeutic due to noncompliance (5) Hyperlipidemia: Code(s): E78.5 - Hyperlipidemia, unspecified Status: Acute Assessment and Plan: Continue statins (6) Hypertension: Qualifiers: Hypertension type: essential hypertension Qualified Code(s): I10 - Essential (primary) hypertension Code(s): I10 - Essential (primary) hypertension Status: Acute Assessment and Plan: Stable Patient blood pressure elevated on admission given clonidine and lisinopril in the ED Will continue home medication carvedilol and lisinopril (7) Hypokalemia: Code(s): E87.6 - Hypokalemia Status: Acute Assessment and Plan: Patient 2.9 she did receive a total of 80 mEq before discharge DS: Summary Hospital Course Reason for hospitalization: Status post mechanical fall Hospital Course: Teri Harrington is a 74 year old female that presented to our ED with shortness of breath and dyspnea. Patient has a past medical history of anxiety and depression, hyperlipidemia, hypertension, and type 2 diabetes. Patient noted that her condition has been declining for several months she has been bed bound as a result of depression for couple of months now. According to patient she developed shortness of breath and EMS had to be called. Patient does stay at home with her 2 sons. According to EMS patient's living environment was unacceptable. According to the report there was several bottles of urine throughout the house, floor board were dry rotted, experience planning strategist throughout the house. No running water or heat working in the home. Patient has agreed to discharge to a fci due to her poor environment.CTA indicate right lower lobe PE, WBC on admission 12.1, creatinine 1.16, glucose 431, magnesium 1.4, occult blood negative patient is being admitted for PE in to rule out congestive heart failure. Patient was given 40 mg of Lasix. the patient denies SOB, CP, palpitation, extremity numbness, lightheadedness, dizziness, constipation, diarrhea, chil
[2020-04-03] MEDS: ENOXAPARIN 100 MG/ML SYRINGE SUB-Q (09:35)
[2020-04-03] MEDS: FUROSEMIDE INJ 40 MG/4 ML VIAL IV PUSH (09:35)
[2020-04-03] MEDS: ROSUVASTATIN 5 MG TABLET 20 MG PO (09:36)
[2020-04-03] MEDS: buPROPion HCL XL (24 HR) 150 MG TABCR 300 MG PO (09:36)
[2020-04-03] MEDS: ESCITALOPRAM OXALATE 10 MG TABLET 20 MG PO (09:37)
[2020-04-03] MEDS: lisinopriL 10 MG TABLET 40 MG PO (09:37)
[2020-04-03] MEDS: POTASSIUM CHLORIDE 20 MEQ TABLET 40 MEQ PO (10:29)
[2020-04-03 11:40] LABS: Glucose Point of Care 145 (65-105)
[2020-04-03 12:00] VITALS: BP 143/60; PULSE 96; RESP 18; TEMP 35.6; O2SAT 97
--- NOTE | 2020-04-03 15:18 | PC.NURSE ---
Patient left floor via wheelchair. Patient discharged to home. Patient left with all her belongings and discharge instructions given. Patient left with printed prescriptions.
--- NOTE | 2020-04-07 13:58 | PC.NURSE ---
Unable to contact for discharge call back, invalid phone number.
== END 2020-04-03 14:10 | disposition home or self-care (01) | DRG 291 ==
LOC: CHSED 03-31 03:05 → CHS2ND 03-31 07:05
PROVIDERS: Nurse Practitioner; Admitting Provider Emergency Medicine; Emergency Provider Emergency Medicine; PCP Internal Medicine; Visit Provider Emergency Medicine
DX: I11.0 Hypertensive heart disease with heart failure (principal); I26.93 Single subsegmental thrombotic pulmonary embolism without acute cor pulmonale; I50.9 Heart failure, unspecified; E11.65 Type 2 diabetes mellitus with hyperglycemia; E78.5 Hyperlipidemia, unspecified; F41.9 Anxiety disorder, unspecified; F32.9 Major depressive disorder, single episode, unspecified; Z20.822 Contact with and (suspected) exposure to COVID-19; Z79.4 Long term (current) use of insulin
CPT/HCPCS: 36415; 71046; 71275; 80053; 82272; 82948; 83036; 83735; 83880; 85025; 85027; 85380; 85730; 86850; 86900; 86901; 87426; 93005; 93306; 96374; 97110; 97161; 97165; 97530; 97535; 99285; A9270; C9803; J1650; J1815; J1940; J3475; Q9967

== ENCOUNTER 2020-07-23 08:25 | Observation (INO) | payer MEDICARE, SELFPAY ==
[2020-07-23] VITALS (10 sets, daily range): BP systolic 116–172; BP diastolic 54–71; PULSE 54–88; RESP 18–88; TEMP 36.2–37.5; O2SAT 97–99; BMI 37.3
--- NOTE | ~2020-07-23 | XR_ITS ---
EXAMINATION: XR foot LT min 3V DATE: 07/23/2020 12:46 INDICATION: Left foot pain, swelling and bruising at the great toe post injury. TECHNIQUE: Dorsoplantar, two oblique and lateral views of the left foot were obtained. COMPARISON: None. FINDINGS: Nondisplaced comminuted intra-articular fracture at the head of the left first proximal phalanx with less than 1 mm step-off at the fracture line at the central aspect of the distal articular surface. A ssociated joint effusion with widening of the first interphalangeal joint space. Alignment remains es sentially anatomic. No other fractures identified. Moderate osteoarthritis at the first metatarsophal angeal joint. Mild osteoarthritis at multiple tarsal metatarsal and many of the remaining metatarsoph alangeal and interphalangeal joints. The third tarsal metatarsal joint space is not clearly profiled and cannot exclude more severe osteoarthritis. Diffuse soft tissue swelling about the foot most promi nent about the great toe and over the dorsum of the forefoot. Extensive scattered vascular calcificat ions. IMPRESSION: 1. Nondisplaced comminuted intra-articular fracture at the distal head of the first proximal phalanx. 2. Polyarticular osteoarthritis in the mid and forefoot, moderate severity at the first metatarsophal angeal joint. Reviewed, dictated and finalized at location A. IMPRESSION: 1. Nondisplaced comminuted intra-articular fracture at the distal head of the f irst proximal phalanx. 2. Polyarticular osteoarthritis in the mid and forefoot, moderate severity at t he first metatarsophalangeal joint.
--- NOTE | ~2020-07-23 | XR_ITS ---
XR chest 1V portable 07/23/2020 08:57 Indication: Dyspnea. History of pulmonary embolism. Procedure: AP portable chest Comparison: 03/30/2020 Findings: Cardiomegaly with interstitial edema. Small pleural effusions. No pneumothorax. There is at herosclerosis. No acute osseous abnormality. Impression: 1: Cardiomegaly with interstitial edema. Pneumonia less favored. Reviewed, dictated and finalized at location A. Impression: 1: Cardiomegaly with interstitial edema. Pneumonia less favored.
--- NOTE | 2020-07-23 08:38 | ECG_ITS ---
Measurements Intervals [place] Rate: 83 P: IN: 0 QRS: -85 QRSD: 138 T: 40 QT: 421 QTc: 497 Interpretive Statements ATRIAL FLUTTER/TACHYCARDIA RIGHT BUNDLE BRANCH BLOCK LEFT ANTERIOR FASCICULAR BLOCK BASELINE ARTIFACT- I, II, III, AVR, AVL, AVF, V1, V3-4 ABNORMAL ECG Electronically Signed On 07-23-2020 9:56:26 CDT by Idris Do D.O.
[2020-07-23 08:53] LABS: Basophils Absolute Auto 0.02 K/mm3 (0.00-0.10); Basophils Percent Auto 0.3 % (0.0-1.0); Eosinophils Absolute Auto 0.04 K/mm3 (0.02-0.50); Eosinophils Percent Auto 0.6 % (1.0-6.0); Hematocrit 32.4 % (35.0-42.0); Hemoglobin 10.9 g/dL (11.7-13.8); Immature Granulocyte Absolute 0.02 K/mm3 (0.00-0.00); Immature Granulocyte Percent A 0.3 % (0.0-0.0); Lymphocytes Absolute Auto 0.96 K/mm3 (1.10-4.50); Lymphocytes Percent Auto 14.1 % (18.0-42.0); Mean Corpuscular HGB Conc 33.6 g/dL (32.0-36.0); Mean Corpuscular Volume 89.3 fL (78.0-102.0); Mean Platelet Volume 9.4 fl (9.2-11.8); Monocytes Absolute Auto 0.49 K/mm3 (0.10-0.90); Monocytes Percent Auto 7.2 % (2.0-11.0); Neutrophils Absolute Auto 5.3 K/mm3 (1.7-7.2); Neutrophils Percent Auto 77.5 % (50.0-70.0); Platelet Count Result 204 K/mm3 (150-420); Red Blood Count 3.63 M/mm3 (4.20-5.40); Red Cell Distribution Width 11.9 % (11.6-14.4); White Blood Count 6.8 K/mm3 (4.8-10.8)
[2020-07-23 09:17] LABS: Alanine Aminotransferase 24 U/L (14-59); Alkaline Phosphatase 84 U/L (46-116); Anion Gap 11 mmol/L (8-16); Aspartate Amino Transferase 11 U/L (15-37); Bilirubin,Total 1.1 mg/dL (0.00-1.00); Blood Urea Nitrogen 7 mg/dL (7-18); Calcium 8.3 mg/dL (8.5-10.1); Carbon Dioxide 27 mmol/L (21-32); Chloride 100 mmol/L (98-108); Estimated Glomerular Filt Rate 60; Glucose 287 mg/dL (70-99); NT Pro B Type Natriuretic Pept 8126 pg/mL (0-450); Osmolality Calculated 294 mOsm/kg (285-295); Potassium 3.6 mmol/L (3.5-5.1); Sodium 138 mmol/L (136-145); Total Protein 6.9 g/dL (6.4-8.2)
--- NOTE | 2020-07-23 09:19 | ED.SOB ---
HPI - SOB/Dyspnea General Chief Complaint: Shortness of Breath/Dyspnea Stated Complaint: AMBULANCE Source: patient and EMS Mode of arrival: EMS Limitations: no limitations History of Present Illness HPI Narrative: this is a 74-year-old female that presents EMS after she called with shortness of breath, the patient states that she has been short of breath for the last couple of days that got worse this morning and currently no chest pain or pressure in her chest no fever chills, no nausea vomiting no abdominal pain no flank pain. The patient has history of CHF and history of pulmonary embolism currently on Eliquis that was diagnosed in early February, also has a history of diabetes and hypertension. Patient was brought in via EMS and on 2L her O2 sats hovering around 97 98% on 2L. MD elicited complaint: shortness of breath Pertinent past history: congestive heart failure and PE Onset (ago): day(s) Timing: improved Severity: mild Exacerbating factors: lying flat Known history of: congestive heart failure and PE Related Data Home Medications Medication Instructions Recorded Confirmed Lantus Solostar U-100 Insulin 50 unit SUBCUT HS 03/30/20 07/23/20 bupropion HCl 300 mg PO DAILY 03/30/20 07/23/20 carvedilol 25 mg PO DAILY 03/30/20 07/23/20 escitalopram oxalate 20 mg PO DAILY 03/30/20 07/23/20 furosemide 40 mg PO DAILY 03/30/20 07/23/20 insulin lispro 30 unit SUBCUT TIDWMEAL 03/30/20 07/23/20 lisinopril 40 mg PO DAILY 03/30/20 07/23/20 rosuvastatin [Crestor] 20 mg PO DAILY 03/30/20 07/23/20 Allergies Allergy/AdvReac Type Severity Reaction Status Date / Time No Known Allergies Allergy Verified 03/30/20 23:21 Review of Systems Review of Systems: All systems reviewed & are unremarkable except as noted in HPI and below PMFSH Past Medical History Medical History Anxiety and depression Hyperlipidemia Hypertension Type 2 diabetes mellitus Family History Family History Mother Breast cancer Social History Social History Smoking status: Never smoker Alcohol intake: never Substance use: never Gender identity (if verbalized by the patient): Female Spiritual care concerns: No Exam Const: General: no acute distress Orientation/consciousness: patient oriented x3 HENMT: Head: normal to inspection Eyes: Conjunctivae: conjunctivae normal Pupils: Equal, round and reactive pupils present EOM: EOMs intact bilaterally Neck: Neck: normal visual inspection, no lymphadenopathy and no meningeal signs Chest: Chest palpation & inspection: normal inspection of the chest Resp: Effort & Inspection: normal respiratory effort Auscultation: clear to auscultation bilaterally Cardio: Rate: regular rate Rhythm: regular rhythm GI: GI Palp: Yes Soft to palpation Percussion: Yes normal to percussion : General: Yes no CVA tenderness Skin: General skin exam: normal color Rashes: no rashes Neuro: General: patient oriented x3 and moves all extremities Extrem: General: normal to inspection and no pedal edema Psych: Mental Status: mental status grossly normal Course Course Emergency Course: Reassessment of patient, patient continues to be resting comfortably with currently no shortness of breath labs reviewed with patient and advised admission under observation with social insurance administrator to our consult for home living conditions. Vital Signs Vital signs: Vital Signs Temperature 37.5 C 07/23/20 08:25 Pulse Rate 88 07/23/20 08:25 Respiratory Rate 88 H 07/23/20 08:25 Blood Pressure 172/59 H 07/23/20 08:25 Pulse Oximetry 97 07/23/20 08:25 Temperature 37.5 C 07/23/20 08:25 Pulse Rate 88 07/23/20 08:25 Respiratory Rate 88 H 07/23/20 08:25 Blood Pressure 172/59 H 07/23/20 08:25 Pulse Oximetry 97 07/23/20 08:25 MDM - S
--- NOTE | 2020-07-23 09:56 | PM.IMHP ---
H&P: HPI History of Present Illness Date/Time: 07/23/20 09:56 this is a 74-year-old female who presented to urgent care with shortness of breath for the last couple of days, patient has not been taking her Lasix. Patient has a past medical history of anxiety and depression, hyperlipidemia, hypertension, diabetes type 2, and history of a PE back in February. According to patient she has not been taking her medication. Patient states that for the last couple of months she has been having terror dreams nightmares and when she wakes up she is on the floor and her home medication are on the floor. Patient is unable to get them and for some reason or another she will not ask her son's to picking crew supervisor the medication. Patient is on eliquis and I once again educated her on the risk of hemorrhaging with head trauma. Patient understands. Patient also continues to live in a poor living environment with her 2 sons please refer to previous admission for description of her environment. Patient states that one of her sons is mentally retarded and the other one is angry natured.patient does deny any physical or verbal abuse. Once again patient believes that she is depressed and does not get out of bed due to her depression caused by her environment. Once again I spoke with patient about transitioning to a snf or assisted living. Patient notes that she will seek placement in an assisted living after discharge. patient's vital signs 172/59, 88, 97% on room air. WBC 6.8, hemoglobin 10.9, hematocrit 32.4, platelets 204, sodium 138, potassium 3.6, BUN 7, creatinine 0.92, glucose 287, troponin 69.0, BUN 8126, chest x-ray indicate interstitial edema, EKG indicated a flutter tachycardia with a heart rate of 83. Patient being admitted for uncompensated congestive heart failure Chief Complaint: Uncompensated congestive heart failure, left foot injury Review of Systems Review of Systems: Narrative: A 14 organ system Review of Systems was performed and pertinent positives included in the HPI, otherwise remaining ROS is negative. [facility] Past Medical History Medical History Anxiety and depression Hyperlipidemia Hypertension Type 2 diabetes mellitus Family History Family History Mother Breast cancer Social History Social History Smoking status: Former smoker Smoking end date: 07/08/79 Alcohol intake: never Substance use: never Gender identity (if verbalized by the patient): Female Sexual Orientation (if Verbalized by the Patient): Straight or Heterosexual Spiritual care concerns: No Meds Home Medications and Allergies Home Medications Medication Instructions Recorded Confirmed Type Lantus Solostar U-100 Insulin 50 unit SUBCUT HS 03/30/20 07/23/20 History bupropion HCl 300 mg PO DAILY 03/30/20 07/23/20 History carvedilol 25 mg PO DAILY 03/30/20 07/23/20 History escitalopram oxalate 20 mg PO DAILY 03/30/20 07/23/20 History furosemide 40 mg PO DAILY 03/30/20 07/23/20 History insulin lispro 30 unit SUBCUT TIDWMEAL 03/30/20 07/23/20 History lisinopril 40 mg PO DAILY 03/30/20 07/23/20 History rosuvastatin [Crestor] 20 mg PO DAILY 03/30/20 07/23/20 History apixaban [Eliquis] 10 mg PO BID #120 tablet 04/02/20 07/23/20 Rx polyethylene glycol 3350 [Miralax] 17 g PO QAM PRN #30 ea 04/02/20 07/23/20 Rx potassium chloride [Klor-Con M20] 40 meq PO DAILY #30 tablet 04/02/20 07/23/20 Rx trazodone 50 mg PO HS PRN #30 tablet 04/02/20 07/23/20 Rx Allergies Allergy/AdvReac Type Severity Reaction Status Date / Time No Known Allergies Allergy Verified 03/30/20 23:21 Vital Signs Vital Signs - 24 hr 07/23/20 08:25 Temperature 99.5 F Pulse Rate 88 Respiratory Rate 88 H Blood Pressure 172/59 H Pulse Oximetry 97 Exam Narrative: Exam Narrative: GENERAL: This is a well-nourished
[2020-07-23] MEDS: FUROSEMIDE INJ 40 MG/4 ML VIAL IV PUSH ×2 (10:00→17:24)
--- NOTE | 2020-07-23 11:43 | ADMGEN ---
6711 This patient, Teri Harrington, was admitted to 2nd Floor Room 208-1. Patient/family oriented to hospital policies and general routines including ID bracelet, bed and alarms, visiting hours, pain management, procedures, bathroom and other care routines, personal items, smoking policy, room service/diet, and visiting hours. Information on how to activate the Rapid Response Team has been discussed. Patient/Family are encouraged to report perceived risks to care and to ask questions if they do not understand what they are told or what they should do. She c/o that she has not taken any of her personal meds for last week or so. claims she has what she calls night terrors and finds her self on the floor. claims she throws self out of bed. claims on last one about a week or so ago that she knocked all meds out of bed. can not find them and sons will not look. claims home life sucks and needs to get out but does not know what to do with sons. oldest one is simple and will help if she does help but youngest is hateful and angry and will not help and talks hateful to her.
[2020-07-23 12:02] LABS: Glucose Point of Care 302 mg/dl (65-105)
[2020-07-23] MEDS: buPROPion HCL XL (24 HR) 150 MG TABCR 300 MG PO (12:57)
[2020-07-23] MEDS: ROSUVASTATIN 10 MG TABLET 20 MG PO (12:58)
[2020-07-23] MEDS: lisinopriL 20 MG TABLET 40 MG PO (12:58)
[2020-07-23] MEDS: carvediloL 12.5 MG TABLET 25 MG PO (12:59)
[2020-07-23] MEDS: POTASSIUM CHLORIDE 20 MEQ PACKET (FOR LIQUID) 40 MEQ PO (13:49)
[2020-07-23 16:55] LABS: Glucose Point of Care 35 mg/dl (65-105)
[2020-07-23] MEDS: GLUCOSE ORAL GEL 15 GM OF GLUCSE IN 37.5 GM TUBE PO (16:59)
--- NOTE | 2020-07-23 17:00 | PC.NURSE ---
notifi ed that patient's blood sugar was 35. MD stated to stop the scheduled Humalog 30 units. Lab notified to draw glucose level.
[2020-07-23 17:17] LABS: Glucose 33 mg/dL (70-99)
[2020-07-23 17:23] LABS: Troponin I 57.6 ng/L (0.00-60.4)
--- NOTE | 2020-07-23 17:23 | PC.NURSE ---
Lab called to state the blood glucose result was 33. Nurse to report to .
--- NOTE | 2020-07-23 17:25 | PC.NURSE ---
accucheck was 35. patient denies feeling funny. oj given. jh nurse aware. lab to draw bs. po glucose gel given. supper served. lab results were 33. eats supper. accucheck 76. cont to have no c/o. goes in and out afib/flutter with rates 50-70's. denies sob or chest pains.
[2020-07-23 17:30] LABS: Glucose Point of Care 76 mg/dl (65-105)
--- NOTE | 2020-07-23 17:30 | PC.NURSE ---
notified that current blood sugar is 76 and that Troponin level is 57.6. No new orders at this time.
--- NOTE | 2020-07-23 17:40 | PM.EVENT ---
Event Note Event Note Event Note: Nursing call on patient with some history of diabetes and is on a long-acting insulin /Lantus, and short-acting lispro that she takes at home 3 times a day with meals patient currently on a sliding scale, call that her blood sugars were around 30 to 35 patient is an protocol received glucose and has some increased her blood sugars currently now at 70 to 75. Advised to continue long-acting insulin but to hold her short-acting 3 times a day with meal lispro.
[2020-07-23] MEDS: APIXABAN 2.5 MG TABLET 10 MG PO (20:55)
[2020-07-23] MEDS: DOXYCYCLINE HYCLATE 100 MG TABLET PO (20:55)
[2020-07-23 20:59] LABS: Glucose Point of Care 85 mg/dl (65-105)
--- NOTE | 2020-07-23 21:17 | PC.NURSE ---
Nail Expert checked patient's accu-check at HS and resulted at 85. Patient asymptomatic. Patient was given ice cream and orange juice. HS insulin was not given d/t BG results and low BG levels earlier this evening. insurance attorney notified of results and medication not given.
[2020-07-24] VITALS (8 sets, daily range): BP systolic 136–178; BP diastolic 63–92; PULSE 65–86; RESP 13–20; TEMP 36.2–36.7; O2SAT 95–98
[2020-07-24 05:48] LABS: Basophils Absolute Auto 0.02 K/mm3 (0.00-0.10); Basophils Percent Auto 0.5 % (0.0-1.0); Eosinophils Absolute Auto 0.18 K/mm3 (0.02-0.50); Eosinophils Percent Auto 4.8 % (1.0-6.0); Hematocrit 32.4 % (35.0-42.0); Hemoglobin 10.5 g/dL (11.7-13.8); Immature Granulocyte Absolute 0.01 K/mm3 (0.00-0.00); Immature Granulocyte Percent A 0.3 % (0.0-0.0); Lymphocytes Absolute Auto 1.52 K/mm3 (1.10-4.50); Lymphocytes Percent Auto 40.5 % (18.0-42.0); Mean Corpuscular HGB Conc 32.4 g/dL (32.0-36.0); Mean Corpuscular Hemoglobin 29.2 pg (27.0-31.0); Monocytes Absolute Auto 0.37 K/mm3 (0.10-0.90); Monocytes Percent Auto 9.9 % (2.0-11.0); Neutrophils Absolute Auto 1.7 K/mm3 (1.7-7.2); Platelet Count Result 199 K/mm3 (150-420); Red Cell Distribution Width 11.9 % (11.6-14.4); White Blood Count 3.8 K/mm3 (4.8-10.8)
[2020-07-24 06:02] LABS: Alanine Aminotransferase 18 U/L (14-59); Albumin Level 2.8 g/dL (3.4-5.0); Alkaline Phosphatase 72 U/L (46-116); Anion Gap 9 mmol/L (8-16); Aspartate Amino Transferase 12 U/L (15-37); Bilirubin,Total 0.7 mg/dL (0.00-1.00); Blood Urea Nitrogen 12 mg/dL (7-18); Calcium 8.4 mg/dL (8.5-10.1); Carbon Dioxide 31 mmol/L (21-32); Chloride 103 mmol/L (98-108); Estimated CRCL calculation 49 ml/min; Estimated Glomerular Filt Rate 54; Glucose 135 mg/dL (70-99); Osmolality Calculated 297 mOsm/kg (285-295); Potassium 3.6 mmol/L (3.5-5.1); Sodium 143 mmol/L (136-145); Total Protein 6.4 g/dL (6.4-8.2)
[2020-07-24 06:04] LABS: NT Pro B Type Natriuretic Pept 5594 pg/mL (0-450)
[2020-07-24 07:39] LABS: Glucose Point of Care 153 mg/dl (65-105)
--- NOTE | 2020-07-24 07:57 | PC.NURSE ---
Removed oxygen due to pt ranging 98%, weaning pt off oxygen
[2020-07-24] MEDS: lisinopriL 20 MG TABLET 40 MG PO (08:19)
[2020-07-24] MEDS: APIXABAN 2.5 MG TABLET 10 MG PO ×2 (08:20→20:19)
[2020-07-24] MEDS: ROSUVASTATIN 10 MG TABLET 20 MG PO (08:20)
[2020-07-24] MEDS: buPROPion HCL XL (24 HR) 150 MG TABCR 300 MG PO (08:20)
[2020-07-24] MEDS: carvediloL 12.5 MG TABLET 25 MG PO (08:21)
[2020-07-24] MEDS: FUROSEMIDE INJ 40 MG/4 ML VIAL IV PUSH ×2 (08:22→17:17)
[2020-07-24] MEDS: DOXYCYCLINE HYCLATE 100 MG TABLET PO ×2 (08:22→20:19)
[2020-07-24] MEDS: POTASSIUM CHLORIDE 20 MEQ PACKET (FOR LIQUID) 40 MEQ FEED TUBE (08:22)
--- NOTE | 2020-07-24 10:45 | P.PN_ITS ---
Progress Note: A&P Assessment and Plan (1) CHF (congestive heart failure): Qualifiers: Heart failure chronicity: acute on chronic Heart failure type: unspecified Qualified Code(s): I50.9 - Heart failure, unspecified Code(s): I50.9 - Heart failure, unspecified Status: Acute Assessment and Plan: * Chest x-ray indicates interstitial edema * BNP 623>142 improving * Weight daily and monitor I's and O's reviewed (2) Pulmonary embolism: Qualifiers: Pulmonary embolism type: single subsegmental (without acute cor pulmonale) Qualified Code(s): I26.93 - Single subsegmental pulmonary embolism without acute cor pulmonale Code(s): I26.99 - Other pulmonary embolism without acute cor pulmonale Status: Acute Assessment and Plan: Continue Eliquis (3) Elevated troponin: Code(s): R77.8 - Other specified abnormalities of plasma proteins Status: Acute Assessment and Plan: * Probably secondary to uncompensated congestive heart failure * Troponin 69.0>61.0>57.6 * EKG a flutter with tachycardia heart rate 83 * Continue telemetry (4) Anxiety and depression: Code(s): F41.9 - Anxiety disorder, unspecified; F32.9 - Major depressive disorder, single episode, unspecified Status: Acute Assessment and Plan: * Continue home medication (5) Hyperlipidemia: Code(s): E78.5 - Hyperlipidemia, unspecified Status: Acute Assessment and Plan: * Continue statins (6) Hypertension: Qualifiers: Hypertension type: essential hypertension Qualified Code(s): I10 - Essential (primary) hypertension Code(s): I10 - Essential (primary) hypertension Status: Acute Assessment and Plan: * Elevated remain elevated * Patient has been taking home medication * Continue lisinopril 40 mg daily, carvedilol 25 mg daily * Vital signs as ordered * Will adjust medication as needed * Verify Cardizem 240 mg twice daily with pharmacy will restart (7) Type 2 diabetes mellitus: Qualifiers: Diabetes mellitus complication status: with hyperglycemia Diabetes mellitus longwall foreman insulin use: with longwall foreman use Qualified Code(s): E11.65 - Type 2 diabetes mellitus with hyperglycemia; Z79.4 - marine oil terminal superintendent (current) use of insulin Code(s): E11.9 - Type 2 diabetes mellitus without complications Status: Acute Assessment and Plan: * Blood sugar stable did drop into the 30s overnight * Patient has not been compliant at home * Continue insulin with hypoglycemic protocol and home dosing * Will adjust medication as needed * Continue diabetic diet * Discontinue home dosing of lispro 30 units 3 times daily with meals start a sliding scale (8) Atrial flutter: Code(s): I48.92 - Unspecified atrial flutter Status: Acute Assessment and Plan: * Continue metoprolol and Eliquis * Continue telemetry (9) Toe injury: Code(s): S99.929A - Unspecified injury of unspecified foot, initial encounter Status: Acute Assessment and Plan: * Left great toe secondary to injury * X-ray pending * Start antibiotic for cellulitis doxycycline day 2 * WBCs within normal limit * Spoke with a orthopedic surgeon oncology transplant network manager who recommended patient be placed in a postop boot and follow-up with primary care physician there is no need to follow-up with Review of Systems Review of Systems: Narrative: A 14 organ system Review of Systems was performed and pertinent positives included in the HPI, otherwise remaining ROS is negative.
--- NOTE | 2020-07-24 10:45 | WPDPN ---
Progress Note: A&P Assessment and Plan (1) CHF (congestive heart failure): Qualifiers: Heart failure chronicity: acute on chronic Heart failure type: unspecified Qualified Code(s): I50.9 - Heart failure, unspecified Code(s): I50.9 - Heart failure, unspecified Status: Acute Assessment and Plan: Chest x-ray indicates interstitial edema BNP 623>142 improving Weight daily and monitor I's and O's reviewed (2) Pulmonary embolism: Qualifiers: Pulmonary embolism type: single subsegmental (without acute cor pulmonale) Qualified Code(s): I26.93 - Single subsegmental pulmonary embolism without acute cor pulmonale Code(s): I26.99 - Other pulmonary embolism without acute cor pulmonale Status: Acute Assessment and Plan: Continue Eliquis (3) Elevated troponin: Code(s): R77.8 - Other specified abnormalities of plasma proteins Status: Acute Assessment and Plan: Probably secondary to uncompensated congestive heart failure Troponin 69.0>61.0>57.6 EKG a flutter with tachycardia heart rate 83 Continue telemetry (4) Anxiety and depression: Code(s): F41.9 - Anxiety disorder, unspecified; F32.9 - Major depressive disorder, single episode, unspecified Status: Acute Assessment and Plan: Continue home medication (5) Hyperlipidemia: Code(s): E78.5 - Hyperlipidemia, unspecified Status: Acute Assessment and Plan: Continue statins (6) Hypertension: Qualifiers: Hypertension type: essential hypertension Qualified Code(s): I10 - Essential (primary) hypertension Code(s): I10 - Essential (primary) hypertension Status: Acute Assessment and Plan: Elevated remain elevated Patient has been taking home medication Continue lisinopril 40 mg daily, carvedilol 25 mg daily Vital signs as ordered Will adjust medication as needed Verify Cardizem 240 mg twice daily with pharmacy will restart (7) Type 2 diabetes mellitus: Qualifiers: Diabetes mellitus complication status: with hyperglycemia Diabetes mellitus fdc insulin use: with sheet metal layout mechanic use Qualified Code(s): E11.65 - Type 2 diabetes mellitus with hyperglycemia; Z79.4 - call center agent (current) use of insulin Code(s): E11.9 - Type 2 diabetes mellitus without complications Status: Acute Assessment and Plan: Blood sugar stable did drop into the 30s overnight Patient has not been compliant at home Continue insulin with hypoglycemic protocol and home dosing Will adjust medication as needed Continue diabetic diet Discontinue home dosing of lispro 30 units 3 times daily with meals start a sliding scale (8) Atrial flutter: Code(s): I48.92 - Unspecified atrial flutter Status: Acute Assessment and Plan: Continue metoprolol and Eliquis Continue telemetry (9) Toe injury: Code(s): S99.929A - Unspecified injury of unspecified foot, initial encounter Status: Acute Assessment and Plan: Left great toe secondary to injury X-ray pending Start antibiotic for cellulitis doxycycline day 2 WBCs within normal limit Spoke with a orthopedic surgeon internal communications manager who recommended patient be placed in a postop boot and follow-up with primary care physician there is no need to follow-up with Review of Systems Review of Systems: Narrative: A 14 organ system Review of Systems was performed and pertinent positives included in the HPI, otherwise remaining ROS is negative. Exam Narrative: Exam Narrative: GENERAL: This is a well-nourished, well-developed patient, in no apparent distress. HEAD: normocephalic, atraumatic. EYES: PERRL. Sclera clear/white. Vision is grossly intact. EARS: External ears normal, auditory canals clear and without drainage, TMs normal without perforation. Hearing grossly intact. NOSE: External nose normal with no obvious nasal discharge, nares without redness, no rhinorrhe
--- NOTE | 2020-07-24 11:03 | PC.NURSE ---
Checked on patient, patient currently in bed resting. Supplied patient with warm blanket.
[2020-07-24 11:44] LABS: Glucose Point of Care 380 mg/dl (65-105)
--- NOTE | 2020-07-24 12:19 | PC.NURSE ---
After vital signs were checked, patient was assisted to chair to eat lunch
--- NOTE | 2020-07-24 12:21 | PC.NURSE ---
After vital signs were checked, patient was assisted to chair to eat lunch
--- NOTE | 2020-07-24 16:36 | PC.NURSE ---
dr ortega aware of patient finesse help, me help me, i hurt but will not swallow pain medication, just spits back out.
--- NOTE | 2020-07-24 17:00 | PC.NURSE ---
Pt. noted in bed c call moe in reach, will use commode per self and encouraged to call for assistance. Pt. reports no c/o pain, resting comfortably at this time.
[2020-07-24 17:22] LABS: Glucose Point of Care 191 mg/dl (65-105)
[2020-07-24] MEDS: INSULIN GLARGINE (*BKC) 100 UNITS/ML 50 UNITS SUB-Q (20:17)
[2020-07-24 20:34] LABS: Glucose Point of Care 257 mg/dl (65-105)
[2020-07-25] VITALS: BP 162/68; PULSE 75; RESP 18; TEMP 36.4; O2SAT 95
[2020-07-25 04:00] VITALS: BP 138/69; PULSE 65; RESP 18; TEMP 36.6; O2SAT 92
[2020-07-25 05:22] LABS: Hematocrit 32.8 % (35.0-42.0); Hemoglobin 10.8 g/dL (11.7-13.8); Mean Corpuscular HGB Conc 32.9 g/dL (32.0-36.0); Mean Corpuscular Hemoglobin 29.9 pg (27.0-31.0); Mean Corpuscular Volume 90.9 fL (78.0-102.0); Mean Platelet Volume 9.6 fl (9.2-11.8); Platelet Count Result 213 K/mm3 (150-420); Red Blood Count 3.61 M/mm3 (4.20-5.40); Red Cell Distribution Width 11.9 % (11.6-14.4); White Blood Count 4.8 K/mm3 (4.8-10.8)
[2020-07-25 05:41] LABS: Alanine Aminotransferase 19 U/L (14-59); Alkaline Phosphatase 74 U/L (46-116); Anion Gap 7 mmol/L (8-16); Aspartate Amino Transferase 10 U/L (15-37); Bilirubin,Total 0.5 mg/dL (0.00-1.00); Blood Urea Nitrogen 15 mg/dL (7-18); Calcium 8.7 mg/dL (8.5-10.1); Carbon Dioxide 35 mmol/L (21-32); Chloride 102 mmol/L (98-108); Estimated CRCL calculation 47 ml/min; Estimated Glomerular Filt Rate 51; NT Pro B Type Natriuretic Pept 3454 pg/mL (0-450); Osmolality Calculated 295 mOsm/kg (285-295); Potassium 3.3 mmol/L (3.5-5.1); Sodium 144 mmol/L (136-145); Total Protein 6.6 g/dL (6.4-8.2)
[2020-07-25 05:44] LABS: Glucose 47 mg/dL (70-99)
--- NOTE | 2020-07-25 06:22 | PC.NURSE ---
0545; Lab called supercharger repair supervisor and notified that glucose was 47. Larry Car Operator assessed patient and A/O x4. Asymptomatic. Larry Car Operator gave orange juice and PB crackers. MD was notified and orders to recheck BG level in 1 hour.
[2020-07-25 06:42] LABS: Glucose Point of Care 97 mg/dl (65-105)
--- NOTE | 2020-07-25 06:42 | PC.NURSE ---
Dr. Crespo notified of pt's blood sugar of 97. No new orders at this time.
--- NOTE | 2020-07-25 06:43 | PC.NURSE ---
Ob Scrub Tech rechecked BG level, results 97. Patient ate and drank 100%. cone sewer notified. notified. NNO.
[2020-07-25 08:00] VITALS: BP 144/65; PULSE 68; RESP 18; TEMP 36.6; O2SAT 97
[2020-07-25] MEDS: POTASSIUM CHLORIDE 20 MEQ PACKET (FOR LIQUID) 40 MEQ FEED TUBE (09:10)
[2020-07-25] MEDS: buPROPion HCL XL (24 HR) 150 MG TABCR 300 MG PO (09:15)
--- NOTE | 2020-07-25 09:16 | PC.NURSE ---
Patient discharging from OBS status to Skilled Swing bed Status.
--- NOTE | 2020-07-25 09:23 | P.DS_ITS ---
DS: Admitting Diagnosis Admitting Diagnosis Admitting Diagnosis: Congestive heart failure and fracture left great toe <TOM Klein - Last Filed: 07/25/20 09:31> DS: Discharge Diagnosis Discharge Diagnosis (1) CHF (congestive heart failure): Qualifiers: Heart failure chronicity: acute on chronic Heart failure type: unspecified Qualified Code(s): I50.9 - Heart failure, unspecified <Meek VirginiaTOM Durant - Last Filed: 07/25/20 09:31> Code(s): I50.9 - Heart failure, unspecified <Meek VirginiaTOM Durant - Last Filed: 07/25/20 09:31> Status: Acute <Meek VirginiaTOM Durant - Last Filed: 07/25/20 09:31> Assessment and Plan: * Chest x-ray indicates interstitial edema * BNP 8126>5594>3454 improving * Weight daily and monitor I's and O's reviewed <TOM Klein - Last Filed: 07/25/20 09:31> (2) Pulmonary embolism: Qualifiers: Pulmonary embolism type: single subsegmental (without acute cor pulmonale) Qualified Code(s): I26.93 - Single subsegmental pulmonary embolism without acute cor pulmonale <TOM Klein - Last Filed: 07/25/20 09:31> Code(s): I26.99 - Other pulmonary embolism without acute cor pulmonale <TOM Klein - Last Filed: 07/25/20 09:31> Status: Acute <TOM Klein - Last Filed: 07/25/20 09:31> Assessment and Plan: Continue Eliquis <TOM Klein - Last Filed: 07/25/20 09:31> (3) Elevated troponin: Code(s): R77.8 - Other specified abnormalities of plasma proteins <TOM Klein - Last Filed: 07/25/20 09:31> Status: Acute <TOM Klein - Last Filed: 07/25/20 09:31> Assessment and Plan: * Probably secondary to uncompensated congestive heart failure * Troponin 69.0>61.0>57.6 * EKG a flutter with tachycardia heart rate 83 * Continue telemetry <Meek GryaTOM - Last Filed: 07/25/20 09:31> (4) Anxiety and depression: Code(s): F41.9 - Anxiety disorder, unspecified; F32.9 - Major depressive disorder, single episode, unspecified <Meek Elise TOM Gray - Last Filed: 07/25/20 09:31> Status: Acute <Meek GrayTOM - Last Filed: 07/25/20 09:31> Assessment and Plan: * Continue home medication <Palbryant Arik GrayTOM - Last Filed: 07/25/20 09:31> (5) Hyperlipidemia: Code(s): E78.5 - Hyperlipidemia, unspecified <Meek Elise TOM Gray - Last Filed: 07/25/20 09:31> Status: Acute <Meek GrayTOM - Last Filed: 07/25/20 09:31> Assessment and Plan: * Continue statins <Meek GrayPETERSalHe - Last Filed: 07/25/20 09:31> (6) Hypertension: Qualifiers: Hypertension type: essential hypertension Qualified Code(s): I10 - Essential (primary) hypertension <Meek ColemanTOM Durant - Last Filed: 07/25/20 09:31> Code(s): I10 - Essential (primary) hypertension <Meek Elise TOM Gray - Last Filed: 07/25/20 09:31> Status: Acute <Meek GrayPETERSalHe - Last Filed: 07/25/20 09:31> Assessment and Plan: * Blood pressure 138/69 improve * Patient has not been taking home medication * Continue lisinopril 40 mg daily, carvedilol 25 mg daily * Vital signs as ordered * Will adjust medication as needed * Verify Cardizem 240 mg twice daily with pharmacy will restart <Palbryant VirginiaTOM Durant - Last Filed: 07/25/20 09:31> (7) Type 2 diabetes mellitus: Qualifiers: Diabetes mellitus complication status: with
--- NOTE | 2020-07-25 09:23 | PM.DS ---
DS: Admitting Diagnosis Admitting Diagnosis Admitting Diagnosis: Congestive heart failure and fracture left great toe <TOM Klein - Last Filed: 07/25/20 09:31> DS: Discharge Diagnosis Discharge Diagnosis (1) CHF (congestive heart failure): Qualifiers: Heart failure chronicity: acute on chronic Heart failure type: unspecified Qualified Code(s): I50.9 - Heart failure, unspecified <TOM Klein - Last Filed: 07/25/20 09:31> Code(s): I50.9 - Heart failure, unspecified <Meek VirginiaTOM Durant - Last Filed: 07/25/20 09:31> Status: Acute <Meek VirginiaTOM Durant - Last Filed: 07/25/20 09:31> Assessment and Plan: Chest x-ray indicates interstitial edema BNP 8126>5594>3454 improving Weight daily and monitor I's and O's reviewed <TOM Klein - Last Filed: 07/25/20 09:31> (2) Pulmonary embolism: Qualifiers: Pulmonary embolism type: single subsegmental (without acute cor pulmonale) Qualified Code(s): I26.93 - Single subsegmental pulmonary embolism without acute cor pulmonale <TOM Klein - Last Filed: 07/25/20 09:31> Code(s): I26.99 - Other pulmonary embolism without acute cor pulmonale <TOM Klein - Last Filed: 07/25/20 09:31> Status: Acute <TOM Klein - Last Filed: 07/25/20 09:31> Assessment and Plan: Continue Eliquis <TOM Klein - Last Filed: 07/25/20 09:31> (3) Elevated troponin: Code(s): R77.8 - Other specified abnormalities of plasma proteins <TOM Klein - Last Filed: 07/25/20 09:31> Status: Acute <TOM Klein - Last Filed: 07/25/20 09:31> Assessment and Plan: Probably secondary to uncompensated congestive heart failure Troponin 69.0>61.0>57.6 EKG a flutter with tachycardia heart rate 83 Continue telemetry <Palbryant VirginiaTOM Durant - Last Filed: 07/25/20 09:31> (4) Anxiety and depression: Code(s): F41.9 - Anxiety disorder, unspecified; F32.9 - Major depressive disorder, single episode, unspecified <Palbryant VirginiaTOM Durant - Last Filed: 07/25/20 09:31> Status: Acute <Meek Elise TOM Gray - Last Filed: 07/25/20 09:31> Assessment and Plan: Continue home medication <PalTOM Garcia - Last Filed: 07/25/20 09:31> (5) Hyperlipidemia: Code(s): E78.5 - Hyperlipidemia, unspecified <Palbryant VirginiaTOM Durant - Last Filed: 07/25/20 09:31> Status: Acute <Meek VirginiaTOM Durant - Last Filed: 07/25/20 09:31> Assessment and Plan: Continue statins <Palbryant VirginiaTOM Durant - Last Filed: 07/25/20 09:31> (6) Hypertension: Qualifiers: Hypertension type: essential hypertension Qualified Code(s): I10 - Essential (primary) hypertension <Meek ColemanTOM Durant - Last Filed: 07/25/20 09:31> Code(s): I10 - Essential (primary) hypertension <TOM Klein - Last Filed: 07/25/20 09:31> Status: Acute <Palbryant VirginiaTOM Durant - Last Filed: 07/25/20 09:31> Assessment and Plan: Blood pressure 138/69 improve Patient has not been taking home medication Continue lisinopril 40 mg daily, carvedilol 25 mg daily Vital signs as ordered Will adjust medication as needed Verify Cardizem 240 mg twice daily with pharmacy will restart <Palbryant VirginiaTOM Durant - Last Filed: 07/25/20 09:31> (7) Type 2 diabetes mellitus: Qualifiers: Diabetes mellitus complication status: with hyperglycemia Diabetes mellitus manager intermediate insulin use: with penitentiary use Qualified Code(s): E11.65 - Type 2 diabetes mellitus with hyperglycemia; Z79.4 - nursing home (current) use of insulin <TOM Klein - Last Filed: 07/25/20 09:31> Code(s): E11.9 - Type 2 diabetes mellitus without complications <TOM Klein - Last
[2020-07-25] MEDS: lisinopriL 20 MG TABLET 40 MG PO (09:41)
[2020-07-25 09:42] VITALS: PULSE 70
[2020-07-25] MEDS: carvediloL 12.5 MG TABLET 25 MG PO (09:42)
[2020-07-25] MEDS: DOXYCYCLINE HYCLATE 100 MG TABLET PO (09:43)
[2020-07-25] MEDS: APIXABAN 2.5 MG TABLET 10 MG PO (09:43)
[2020-07-25] MEDS: FUROSEMIDE INJ 40 MG/4 ML VIAL IV PUSH (09:44)
[2020-07-25] MEDS: ROSUVASTATIN 10 MG TABLET 20 MG PO (09:44)
[2020-07-25 09:59] LABS: Glucose Point of Care 232 mg/dl (65-105)
[2020-07-26 01:59] LABS: Glucose Point of Care 135 mg/dl (65-105)
[2020-07-26 01:59] LABS: Glucose Point of Care 232 mg/dl (65-105)
[2020-08-11 13:43] LABS: Glucose Point of Care 190 mg/dl (65-105)
== END 2020-07-25 09:15 | disposition swing bed (61) ==
LOC: CHSED 09:43 → CHS2ND 10:01
PROVIDERS: Nurse Practitioner; Admitting Provider Emergency Medicine; Emergency Provider Emergency Medicine; PCP Internal Medicine; Visit Provider Emergency Medicine
DX: I11.0 Hypertensive heart disease with heart failure (principal); I50.9 Heart failure, unspecified; S92.415A Nondisplaced fracture of proximal phalanx of left great toe, initial encounter for closed fracture; I48.92 Unspecified atrial flutter; E11.65 Type 2 diabetes mellitus with hyperglycemia; E11.649 Type 2 diabetes mellitus with hypoglycemia without coma; E78.5 Hyperlipidemia, unspecified; R77.8 Other specified abnormalities of plasma proteins; F41.9 Anxiety disorder, unspecified; F32.9 Major depressive disorder, single episode, unspecified; Z86.711 Personal history of pulmonary embolism; Z79.01 Long term (current) use of anticoagulants; Z87.891 Personal history of nicotine dependence; Z79.4 Long term (current) use of insulin
CPT/HCPCS: 36415; 71045; 73630; 80053; 82947; 82948; 83880; 84484; 85025; 85027; 87040; 93005; 96374; 96376; 97161; 97165; 97530; 99285; A9270; G0378; J1815; J1940

== ENCOUNTER 2020-07-25 10:51 | Inpatient (IN) | payer MEDICARE, SELFPAY ==
[2020-07-25 10:51] VITALS: BMI 37.3
--- NOTE | 2020-07-25 10:52 | PC.NURSE ---
Patient admitted to Skilled swing bed status for weakness. Patient oriented to room, bathroom, call moe and bed. Call light and belongings at side. Patient sitting up in chair resting. Call light at side.
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
[2020-07-25 13:46] VITALS: PULSE 72; O2SAT 98
[2020-07-25] MEDS: ESCITALOPRAM OXALATE 10 MG TABLET 20 MG PO (14:54)
[2020-07-25 15:55] VITALS: BP 121/60; PULSE 60; RESP 18; TEMP 36.1; O2SAT 96
[2020-07-25 20:00] VITALS: BP 134/53; PULSE 60; RESP 20; TEMP 36.3; O2SAT 95
[2020-07-25] MEDS: APIXABAN 2.5 MG TABLET 10 MG PO (20:58)
[2020-07-25] MEDS: DOXYCYCLINE HYCLATE 100 MG TABLET PO (20:59)
[2020-07-25] MEDS: INSULIN GLARGINE (*BKC) 100 UNITS/ML 15 UNITS SUB-Q (21:00)
[2020-07-25 22:40] VITALS: BP 147/53; PULSE 56; RESP 18; TEMP 36.8; O2SAT 95
--- NOTE | 2020-07-26 01:42 | PC.NURSE ---
Sleeping, turns self in bed; skin pink, respirations are easy, regular and unlabored. No signs of distress or discomfort.
[2020-07-26 07:52] LABS: Glucose Point of Care 137 mg/dl (65-105)
[2020-07-26 08:00] VITALS: BP 159/56; PULSE 62; RESP 18; TEMP 36.6; O2SAT 95
[2020-07-26] MEDS: FUROSEMIDE 40 MG TABLET PO (09:00)
[2020-07-26] MEDS: ROSUVASTATIN 10 MG TABLET 20 MG PO (09:00)
[2020-07-26] MEDS: POTASSIUM CHLORIDE 20 MEQ TABLET 40 MEQ PO (09:00)
[2020-07-26] MEDS: POTASSIUM CHLORIDE 20 MEQ PACKET (FOR LIQUID) 40 MEQ FEED TUBE (09:02)
[2020-07-26] MEDS: ESCITALOPRAM OXALATE 10 MG TABLET 20 MG PO (09:06)
[2020-07-26 09:07] VITALS: PULSE 88
[2020-07-26] MEDS: carvediloL 12.5 MG TABLET 25 MG PO (09:07)
[2020-07-26] MEDS: lisinopriL 20 MG TABLET 40 MG PO (09:08)
[2020-07-26] MEDS: APIXABAN 2.5 MG TABLET 10 MG PO ×2 (09:08→21:51)
[2020-07-26] MEDS: DOXYCYCLINE HYCLATE 100 MG TABLET PO ×2 (09:09→21:52)
[2020-07-26] MEDS: buPROPion HCL XL (24 HR) 150 MG TABCR 300 MG PO (11:13)
[2020-07-26 12:05] LABS: Glucose Point of Care 263 mg/dl (65-105)
[2020-07-26 16:55] VITALS: BP 155/54; PULSE 54; RESP 18; TEMP 36.5; O2SAT 96
[2020-07-26 17:13] LABS: Glucose Point of Care 177 mg/dl (65-105)
[2020-07-26 20:46] LABS: Glucose Point of Care 234 mg/dl (65-105)
[2020-07-26] MEDS: INSULIN GLARGINE (*BKC) 100 UNITS/ML 15 UNITS SUB-Q (21:54)
[2020-07-27] VITALS: BP 160/68; PULSE 58; RESP 16; TEMP 37; O2SAT 95
[2020-07-27 05:29] LABS: Potassium 4.1 mmol/L (3.5-5.1)
[2020-07-27 07:40] LABS: Glucose Point of Care 169 mg/dl (65-105)
[2020-07-27 08:00] VITALS: BP 174/67; PULSE 61; RESP 18; TEMP 36.1; O2SAT 95
[2020-07-27] MEDS: ROSUVASTATIN 10 MG TABLET 20 MG PO (09:03)
[2020-07-27] MEDS: lisinopriL 20 MG TABLET 40 MG PO (09:03)
[2020-07-27] MEDS: DOXYCYCLINE HYCLATE 100 MG TABLET PO ×2 (09:04→21:07)
[2020-07-27] MEDS: APIXABAN 2.5 MG TABLET 10 MG PO ×2 (09:04→21:07)
[2020-07-27 09:05] VITALS: PULSE 61
[2020-07-27] MEDS: carvediloL 12.5 MG TABLET 25 MG PO (09:05)
[2020-07-27] MEDS: ESCITALOPRAM OXALATE 10 MG TABLET 20 MG PO (09:05)
[2020-07-27] MEDS: FUROSEMIDE 40 MG TABLET PO (09:06)
[2020-07-27] MEDS: buPROPion HCL XL (24 HR) 150 MG TABCR 300 MG PO (09:06)
[2020-07-27] MEDS: POTASSIUM CHLORIDE 20 MEQ PACKET (FOR LIQUID) 40 MEQ FEED TUBE (09:06)
[2020-07-27 11:21] LABS: Glucose Point of Care 246 mg/dl (65-105)
--- NOTE | 2020-07-27 14:50 | PCOTNOTE ---
On 07/27/20, the student, [ Lu Sanchez], provided care and completed [facility] documentation on this patient. I have reviewed the student's documentation and agree with the findings.
[2020-07-27 15:42] VITALS: BP 128/48; PULSE 44; RESP 20; TEMP 36.1; O2SAT 99
[2020-07-27 16:06] LABS: Glucose Point of Care 198 mg/dl (65-105)
--- NOTE | 2020-07-27 18:14 | PC.NURSE ---
Expelled formed brown BM X2 in BSC. One small, one moderate amt.
[2020-07-27 21:05] LABS: Glucose Point of Care 250 mg/dl (65-105)
[2020-07-27] MEDS: INSULIN GLARGINE (*BKC) 100 UNITS/ML 15 UNITS SUB-Q (21:05)
[2020-07-28] VITALS: BP 161/79; PULSE 72; RESP 16; TEMP 36.6; O2SAT 94
[2020-07-28 08:00] VITALS: BP 164/94; PULSE 78; RESP 20; TEMP 36.5; O2SAT 92
[2020-07-28 08:14] LABS: Glucose Point of Care 188 mg/dl (65-105)
[2020-07-28] MEDS: lisinopriL 20 MG TABLET 40 MG PO (09:09)
[2020-07-28] MEDS: ESCITALOPRAM OXALATE 10 MG TABLET 20 MG PO (09:09)
[2020-07-28] MEDS: buPROPion HCL XL (24 HR) 150 MG TABCR 300 MG PO (09:09)
[2020-07-28] MEDS: POTASSIUM CHLORIDE 20 MEQ PACKET (FOR LIQUID) 40 MEQ FEED TUBE (09:09)
[2020-07-28 09:10] VITALS: PULSE 102
[2020-07-28] MEDS: ROSUVASTATIN 10 MG TABLET 20 MG PO (09:10)
[2020-07-28] MEDS: FUROSEMIDE 40 MG TABLET PO (09:10)
[2020-07-28] MEDS: APIXABAN 2.5 MG TABLET 10 MG PO ×2 (09:10→21:44)
[2020-07-28] MEDS: carvediloL 12.5 MG TABLET 25 MG PO (09:10)
[2020-07-28] MEDS: DOXYCYCLINE HYCLATE 100 MG TABLET PO ×2 (09:11→21:43)
--- NOTE | 2020-07-28 10:40 | PCOTNOTE ---
On 07/28/20, the student, [ Lu Sanchez], provided care and completed [facility] documentation on this patient. I have reviewed the student's documentation and agree with the findings.
[2020-07-28 11:44] LABS: Glucose Point of Care 325 mg/dl (65-105)
[2020-07-28 16:00] VITALS: BP 154/84; PULSE 78; RESP 20; TEMP 36.6; O2SAT 92
[2020-07-28 16:16] LABS: Glucose Point of Care 164 mg/dl (65-105)
[2020-07-28] MEDS: INSULIN GLARGINE (*BKC) 100 UNITS/ML 15 UNITS SUB-Q (21:42)
[2020-07-28 21:52] LABS: Glucose Point of Care 364 mg/dl (65-105)
[2020-07-29] VITALS: BP 153/70; PULSE 59; RESP 18; TEMP 36.6; O2SAT 95
[2020-07-29 06:15] LABS: Potassium 4.6 mmol/L (3.5-5.1)
[2020-07-29 07:36] LABS: Glucose Point of Care 187 mg/dl (65-105)
[2020-07-29 08:00] VITALS: BP 160/74; PULSE 60; RESP 20; TEMP 36.2; O2SAT 96
[2020-07-29] MEDS: lisinopriL 20 MG TABLET 40 MG PO (08:35)
[2020-07-29] MEDS: APIXABAN 2.5 MG TABLET 10 MG PO ×2 (08:35→21:31)
[2020-07-29 08:36] VITALS: PULSE 88
[2020-07-29] MEDS: carvediloL 12.5 MG TABLET 25 MG PO ×2 (08:36→21:32)
[2020-07-29] MEDS: ESCITALOPRAM OXALATE 10 MG TABLET 20 MG PO (08:36)
[2020-07-29] MEDS: DOXYCYCLINE HYCLATE 100 MG TABLET PO ×2 (08:37→21:31)
[2020-07-29] MEDS: buPROPion HCL XL (24 HR) 150 MG TABCR 300 MG PO (08:37)
[2020-07-29] MEDS: ROSUVASTATIN 10 MG TABLET 20 MG PO (08:37)
[2020-07-29] MEDS: POTASSIUM CHLORIDE 20 MEQ PACKET (FOR LIQUID) 40 MEQ FEED TUBE (08:37)
[2020-07-29] MEDS: FUROSEMIDE 40 MG TABLET PO (08:37)
[2020-07-29 11:50] LABS: Glucose Point of Care 249 mg/dl (65-105)
[2020-07-29] MEDS: SACCHAROMYCES BOULARDII 250 MG CAPSULE PO ×2 (13:28→17:28)
--- NOTE | 2020-07-29 13:42 | PM.IMPN ---
Progress Note: A&P Assessment and Plan (1) Weakness: Code(s): R53.1 - Weakness Status: Acute Assessment and Plan: ? Exhibit tolerance during physical activity as evidenced by a normal fluctuation of vital signs during physical activity. ? Patient will be ability to perform required activities of daily living. ? Provide appropriate nutrition for healing and strength. ? Use appropriate to prevent falls. ? Continue physical therapy/occupational therapy. 07/29/2020 Continue to work with PT/OT, Pt admits she needs more time with PT/OT before she can return home (2) Toe injury: Qualifiers: Encounter type: subsequent encounter Laterality: left Qualified Code(s): S99.922D - Unspecified injury of left foot, subsequent encounter Code(s): S99.929A - Unspecified injury of unspecified foot, initial encounter Status: Acute Assessment and Plan: Left great toe secondary to injury X-ray pending Start antibiotic for cellulitis doxycycline WBCs within normal limit Spoke with a orthopedic surgeon integration architect who recommended patient be placed in a postop boot and follow-up with primary care physician there is no need to follow-up with 07/29/2020 No complaint of pain, healing abrasions on both toes, continue with Doxycycline (3) Atrial flutter: Qualifiers: Atrial flutter type: unspecified Qualified Code(s): I48.92 - Unspecified atrial flutter Code(s): I48.92 - Unspecified atrial flutter Status: Acute Assessment and Plan: Continue metoprolol and Eliquis (4) Anxiety and depression: Code(s): F41.9 - Anxiety disorder, unspecified; F32.9 - Major depressive disorder, single episode, unspecified Status: Acute Assessment and Plan: Continue home medication 07/29/2020 Monitor mental emotional state, continue with Bupropion and Escitalopram (5) CHF (congestive heart failure): Qualifiers: Heart failure chronicity: acute on chronic Heart failure type: unspecified Qualified Code(s): I50.9 - Heart failure, unspecified Code(s): I50.9 - Heart failure, unspecified Status: Acute Assessment and Plan: Chest x-ray indicates interstitial edema BNP 8126>5594>3454 improving Weight daily 07/29/2020 No SOB or increased WOB, lungs clear, edema to feet non-pitting (6) Pulmonary embolism: Qualifiers: Pulmonary embolism type: single subsegmental (without acute cor pulmonale) Qualified Code(s): I26.93 - Single subsegmental pulmonary embolism without acute cor pulmonale Code(s): I26.99 - Other pulmonary embolism without acute cor pulmonale Status: Acute Assessment and Plan: Continue Eliquis (7) Hyperlipidemia: Qualifiers: Hyperlipidemia type: unspecified Qualified Code(s): E78.5 - Hyperlipidemia, unspecified Code(s): E78.5 - Hyperlipidemia, unspecified Status: Acute Assessment and Plan: Continue statins (8) Hypertension: Qualifiers: Hypertension type: essential hypertension Qualified Code(s): I10 - Essential (primary) hypertension Code(s): I10 - Essential (primary) hypertension Status: Acute Assessment and Plan: Blood pressure 138/69 improve Patient has not been taking home medication Continue lisinopril 40 mg daily, carvedilol 25 mg daily Vital signs as ordered Will adjust medication as needed Verify Cardizem 240 mg twice daily with pharmacy will restart 07/29/2020 BP a little elevated, Pharmacy identified that Pts Coreg is to be BID rather than daily as entered in Home Medications, this was changed to BID today, monitor VS, make any further changes as needed. (9) Type 2 diabetes mellitus: Qualifiers: Diabetes mellitus complication status: with hyperglycemia Diabetes mellitus rodent exterminator insulin use: with rodent exterminator use Qualified Code(s): E11.65 - Type 2 diabetes mellitus with hyperglycemia; Z79.4 - intermediate teacher (current) use of insulin
--- NOTE | 2020-07-29 13:43 | PHAR ---
07/29/20: spoke w/anu in [facility] and pt. take carvedilol 25mg bid (not qday), last got 3 mos supply 05/2020. tls
[2020-07-29 16:00] VITALS: BP 112/64; PULSE 72; RESP 20; TEMP 36.4; O2SAT 97
[2020-07-29 17:12] LABS: Glucose Point of Care 137 mg/dl (65-105)
[2020-07-29 21:32] VITALS: PULSE 84
[2020-07-29] MEDS: INSULIN GLARGINE (*BKC) 100 UNITS/ML 15 UNITS SUB-Q (21:32)
[2020-07-29 21:41] LABS: Glucose Point of Care 310 mg/dl (65-105)
[2020-07-29 23:48] VITALS: BP 112/56; PULSE 57; RESP 16; TEMP 36.6; O2SAT 94
[2020-07-30 07:40] LABS: Glucose Point of Care 230 mg/dl (65-105)
[2020-07-30 08:00] VITALS: BP 138/71; PULSE 59; RESP 18; TEMP 36.5; O2SAT 97
[2020-07-30] MEDS: buPROPion HCL XL (24 HR) 150 MG TABCR 300 MG PO (09:12)
[2020-07-30] MEDS: POTASSIUM CHLORIDE 20 MEQ PACKET (FOR LIQUID) 40 MEQ FEED TUBE (09:12)
[2020-07-30] MEDS: ESCITALOPRAM OXALATE 10 MG TABLET 20 MG PO (09:13)
[2020-07-30] MEDS: FUROSEMIDE 40 MG TABLET PO (09:14)
[2020-07-30] MEDS: APIXABAN 2.5 MG TABLET 10 MG PO ×2 (09:15→20:27)
[2020-07-30 09:16] VITALS: PULSE 60
[2020-07-30] MEDS: carvediloL 12.5 MG TABLET 25 MG PO (09:16)
[2020-07-30] MEDS: SACCHAROMYCES BOULARDII 250 MG CAPSULE PO ×2 (09:17→16:56)
[2020-07-30] MEDS: DOXYCYCLINE HYCLATE 100 MG TABLET PO ×2 (09:17→20:27)
[2020-07-30] MEDS: lisinopriL 20 MG TABLET 40 MG PO (11:19)
[2020-07-30] MEDS: ROSUVASTATIN 10 MG TABLET 20 MG PO (11:21)
[2020-07-30 11:29] LABS: Glucose Point of Care 266 mg/dl (65-105)
[2020-07-30 16:00] VITALS: BP 136/41; PULSE 50; RESP 16; TEMP 36.6; O2SAT 95
[2020-07-30 16:32] LABS: Glucose Point of Care 189 mg/dl (65-105)
[2020-07-30 19:53] VITALS: O2SAT 96
[2020-07-30 20:32] VITALS: PULSE 60
[2020-07-30 20:33] LABS: Glucose Point of Care 337 mg/dl (65-105)
[2020-07-30] MEDS: INSULIN GLARGINE (*BKC) 100 UNITS/ML 15 UNITS SUB-Q (20:33)
[2020-07-31] VITALS: BP 147/57; PULSE 66; RESP 16; TEMP 36.4; O2SAT 93
[2020-07-31 05:46] LABS: Potassium 4.1 mmol/L (3.5-5.1)
[2020-07-31 08:00] VITALS: BP 140/58; PULSE 70; RESP 18; TEMP 36.8; O2SAT 98
[2020-07-31 08:05] LABS: Glucose Point of Care 260 mg/dl (65-105)
[2020-07-31] MEDS: POTASSIUM CHLORIDE 20 MEQ PACKET (FOR LIQUID) 40 MEQ FEED TUBE (08:41)
[2020-07-31] MEDS: SACCHAROMYCES BOULARDII 250 MG CAPSULE PO ×3 (08:41→16:37)
[2020-07-31] MEDS: buPROPion HCL XL (24 HR) 150 MG TABCR 300 MG PO (08:42)
[2020-07-31] MEDS: FUROSEMIDE 40 MG TABLET PO (08:42)
[2020-07-31] MEDS: APIXABAN 2.5 MG TABLET 10 MG PO ×2 (08:43→20:45)
[2020-07-31] MEDS: DOXYCYCLINE HYCLATE 100 MG TABLET PO ×2 (08:44→20:44)
[2020-07-31] MEDS: ESCITALOPRAM OXALATE 10 MG TABLET 20 MG PO (08:44)
[2020-07-31] MEDS: lisinopriL 20 MG TABLET 40 MG PO (08:44)
[2020-07-31 08:45] VITALS: PULSE 72
[2020-07-31] MEDS: carvediloL 12.5 MG TABLET 25 MG PO ×2 (08:45→20:44)
[2020-07-31] MEDS: ROSUVASTATIN 10 MG TABLET 20 MG PO (09:10)
[2020-07-31 11:38] LABS: Glucose Point of Care 189 mg/dl (65-105)
[2020-07-31 16:00] VITALS: BP 118/58; PULSE 60; RESP 18; TEMP 36.5; O2SAT 98
[2020-07-31 16:41] LABS: Glucose Point of Care 235 mg/dl (65-105)
--- NOTE | 2020-07-31 17:57 | PC.NURSE ---
In chair at this time, denies needs
[2020-07-31] MEDS: INSULIN GLARGINE (*BKC) 100 UNITS/ML 15 UNITS SUB-Q (20:43)
[2020-07-31 20:44] VITALS: PULSE 68
[2020-07-31 20:50] LABS: Glucose Point of Care 262 mg/dl (65-105)
[2020-07-31 23:28] VITALS: BP 115/43; PULSE 53; RESP 16; TEMP 36.3; O2SAT 97
[2020-08-01 07:46] LABS: Glucose Point of Care 231 mg/dl (65-105)
[2020-08-01 07:59] VITALS: BP 144/64; PULSE 61; RESP 16; TEMP 36.2; O2SAT 95
[2020-08-01 08:00] VITALS: O2SAT 95
[2020-08-01] MEDS: buPROPion HCL XL (24 HR) 150 MG TABCR 300 MG PO (08:28)
[2020-08-01] MEDS: POTASSIUM CHLORIDE 20 MEQ PACKET (FOR LIQUID) 40 MEQ FEED TUBE (08:28)
[2020-08-01] MEDS: FUROSEMIDE 40 MG TABLET PO (08:29)
[2020-08-01] MEDS: DOXYCYCLINE HYCLATE 100 MG TABLET PO (08:29)
[2020-08-01] MEDS: ROSUVASTATIN 10 MG TABLET 20 MG PO (08:29)
[2020-08-01] MEDS: ESCITALOPRAM OXALATE 10 MG TABLET 20 MG PO (08:29)
[2020-08-01 08:30] VITALS: PULSE 61
[2020-08-01] MEDS: carvediloL 12.5 MG TABLET 25 MG PO ×2 (08:30→20:25)
[2020-08-01] MEDS: APIXABAN 2.5 MG TABLET 10 MG PO ×2 (08:30→20:25)
[2020-08-01] MEDS: SACCHAROMYCES BOULARDII 250 MG CAPSULE PO ×3 (08:30→16:28)
[2020-08-01] MEDS: lisinopriL 20 MG TABLET 40 MG PO (08:31)
[2020-08-01 11:43] LABS: Glucose Point of Care 249 mg/dl (65-105)
[2020-08-01 15:24] VITALS: BP 132/54; PULSE 62; RESP 18; TEMP 36.3; O2SAT 94
[2020-08-01 16:30] LABS: Glucose Point of Care 304 mg/dl (65-105)
--- NOTE | 2020-08-01 17:42 | PC.NURSE ---
in chair for dinner, tolerated well, uses walker appropriately,
[2020-08-01 20:25] VITALS: PULSE 62
[2020-08-01] MEDS: INSULIN GLARGINE (*BKC) 100 UNITS/ML 15 UNITS SUB-Q (20:32)
[2020-08-01 21:37] LABS: Glucose Point of Care 258 mg/dl (65-105)
[2020-08-02 00:43] VITALS: BP 164/68; PULSE 62; RESP 20; TEMP 35.7; O2SAT 96
[2020-08-02 05:24] LABS: Potassium 4.2 mmol/L (3.5-5.1)
[2020-08-02 08:00] VITALS: BP 150/64; PULSE 60; RESP 18; TEMP 36.3; O2SAT 95
[2020-08-02 08:07] LABS: Glucose Point of Care 264 mg/dl (65-105)
[2020-08-02] MEDS: ESCITALOPRAM OXALATE 10 MG TABLET 20 MG PO (09:21)
[2020-08-02] MEDS: ROSUVASTATIN 10 MG TABLET 20 MG PO (09:21)
[2020-08-02] MEDS: buPROPion HCL XL (24 HR) 150 MG TABCR 300 MG PO (09:21)
[2020-08-02] MEDS: POTASSIUM CHLORIDE 20 MEQ PACKET (FOR LIQUID) 40 MEQ FEED TUBE (09:21)
[2020-08-02] MEDS: FUROSEMIDE 40 MG TABLET PO (09:22)
[2020-08-02] MEDS: lisinopriL 20 MG TABLET 40 MG PO (09:22)
[2020-08-02 09:23] VITALS: PULSE 62
[2020-08-02] MEDS: APIXABAN 2.5 MG TABLET 10 MG PO ×2 (09:23→20:28)
[2020-08-02] MEDS: carvediloL 12.5 MG TABLET 25 MG PO ×2 (09:23→20:28)
[2020-08-02] MEDS: SACCHAROMYCES BOULARDII 250 MG CAPSULE PO ×3 (09:24→16:50)
--- NOTE | 2020-08-02 10:54 | PC.NURSE ---
JACQUES Vidales here to work with pt, he is back in bed, call light in reach
--- NOTE | 2020-08-02 10:56 | PC.NURSE ---
Sobeida has been in to work with pt, she is laying down for a nap, call light in reach
[2020-08-02 11:47] LABS: Glucose Point of Care 301 mg/dl (65-105)
[2020-08-02 16:00] VITALS: BP 145/66; PULSE 60; RESP 20; TEMP 36.8; O2SAT 97
[2020-08-02 16:32] LABS: Glucose Point of Care 202 mg/dl (65-105)
[2020-08-02 20:28] VITALS: PULSE 60
[2020-08-02] MEDS: INSULIN GLARGINE (*BKC) 100 UNITS/ML 15 UNITS SUB-Q (20:35)
[2020-08-02 21:29] LABS: Glucose Point of Care 234 mg/dl (65-105)
[2020-08-03 01:32] VITALS: BP 143/61; PULSE 60; RESP 20; TEMP 36.4; O2SAT 97
[2020-08-03 07:35] VITALS: BP 142/63; PULSE 59; RESP 18; TEMP 36.2; O2SAT 95
[2020-08-03 08:07] LABS: Glucose Point of Care 254 mg/dl (65-105)
[2020-08-03] MEDS: POTASSIUM CHLORIDE 20 MEQ PACKET (FOR LIQUID) 40 MEQ FEED TUBE (09:14)
[2020-08-03 09:15] VITALS: PULSE 59
[2020-08-03] MEDS: ROSUVASTATIN 10 MG TABLET 20 MG PO (09:15)
[2020-08-03] MEDS: lisinopriL 20 MG TABLET 40 MG PO (09:15)
[2020-08-03] MEDS: APIXABAN 2.5 MG TABLET 10 MG PO ×2 (09:15→21:05)
[2020-08-03] MEDS: carvediloL 12.5 MG TABLET 25 MG PO (09:15)
[2020-08-03] MEDS: buPROPion HCL XL (24 HR) 150 MG TABCR 300 MG PO (09:16)
[2020-08-03] MEDS: FUROSEMIDE 40 MG TABLET PO (09:16)
[2020-08-03] MEDS: SACCHAROMYCES BOULARDII 250 MG CAPSULE PO ×3 (09:16→17:48)
[2020-08-03] MEDS: ESCITALOPRAM OXALATE 10 MG TABLET 20 MG PO (09:16)
[2020-08-03 12:26] LABS: Glucose Point of Care 165 mg/dl (65-105)
[2020-08-03 16:00] VITALS: BP 179/61; PULSE 59; RESP 18; TEMP 36.4; O2SAT 94
[2020-08-03 17:09] LABS: Glucose Point of Care 232 mg/dl (65-105)
[2020-08-03 20:44] LABS: Glucose Point of Care 225 mg/dl (65-105)
[2020-08-03 21:08] VITALS: PULSE 48
[2020-08-03] MEDS: INSULIN GLARGINE (*BKC) 100 UNITS/ML 15 UNITS SUB-Q (21:10)
[2020-08-04] VITALS: BP 149/70; PULSE 52; RESP 16; TEMP 36.3; O2SAT 98
[2020-08-04 05:26] LABS: Hematocrit 34.5 % (35.0-42.0); Hemoglobin 11.5 g/dL (11.7-13.8); Mean Corpuscular HGB Conc 33.3 g/dL (32.0-36.0); Mean Corpuscular Hemoglobin 29.6 pg (27.0-31.0); Mean Corpuscular Volume 88.9 fL (78.0-102.0); Mean Platelet Volume 9.6 fl (9.2-11.8); Platelet Count Result 241 K/mm3 (150-420); Red Blood Count 3.88 M/mm3 (4.20-5.40); Red Cell Distribution Width 12.1 % (11.6-14.4); White Blood Count 5.3 K/mm3 (4.8-10.8)
[2020-08-04 05:34] LABS: Anion Gap 8 mmol/L (8-16); Blood Urea Nitrogen 18 mg/dL (7-18); Calcium 8.8 mg/dL (8.5-10.1); Carbon Dioxide 32 mmol/L (21-32); Chloride 102 mmol/L (98-108); Estimated CRCL calculation 46 ml/min; Estimated Glomerular Filt Rate 46; Glucose 226 mg/dL (70-99); Osmolality Calculated 302 mOsm/kg (285-295); Potassium 4.2 mmol/L (3.5-5.1); Sodium 142 mmol/L (136-145)
[2020-08-04 07:55] VITALS: BP 157/60; PULSE 64; RESP 18; TEMP 36.3; O2SAT 98
[2020-08-04 08:06] LABS: Glucose Point of Care 192 mg/dl (65-105)
[2020-08-04] MEDS: lisinopriL 20 MG TABLET 40 MG PO (08:28)
[2020-08-04] MEDS: buPROPion HCL XL (24 HR) 150 MG TABCR 300 MG PO (08:28)
[2020-08-04] MEDS: ESCITALOPRAM OXALATE 10 MG TABLET 20 MG PO (08:28)
[2020-08-04] MEDS: POTASSIUM CHLORIDE 20 MEQ PACKET (FOR LIQUID) 40 MEQ FEED TUBE (08:28)
[2020-08-04] MEDS: APIXABAN 2.5 MG TABLET 10 MG PO ×2 (08:28→21:23)
[2020-08-04 08:29] VITALS: PULSE 64
[2020-08-04] MEDS: ROSUVASTATIN 10 MG TABLET 20 MG PO (08:29)
[2020-08-04] MEDS: carvediloL 12.5 MG TABLET 25 MG PO ×2 (08:29→21:24)
[2020-08-04] MEDS: FUROSEMIDE 40 MG TABLET PO (08:29)
[2020-08-04] MEDS: SACCHAROMYCES BOULARDII 250 MG CAPSULE PO ×3 (08:30→17:49)
--- NOTE | 2020-08-04 08:33 | WPDPN ---
Review of Systems Review of Systems: Narrative: A 14 organ system Review of Systems was performed and pertinent positives included in the HPI, otherwise remaining ROS is negative. Objective Data Vital Signs Vital Signs: Vital Signs - 24 hr 08/03/20 09:15 08/03/20 16:00 08/03/20 21:08 Temperature 97.6 F Pulse Rate 59 L 59 L 48 L Respiratory Rate 18 Blood Pressure 179/61 H Pulse Oximetry 94 08/04/20 00:00 08/04/20 07:55 Temperature 97.3 F L 97.3 F L Pulse Rate 52 L 64 Respiratory Rate 16 18 Blood Pressure 149/70 H 157/60 H Pulse Oximetry 98 98 Intake/Output Intake/Output: Intake & Output 08/01/20 08/02/20 08/03/20 08/04/20 23:59 23:59 23:59 23:59 Intake Total 1150 1140 1820 Output Total 1 0 Balance 1150 1140 1819 0 Meds/Results Medications: Active Medications Generic Name Dose Route Start Last Admin Trade Name Freq PRN Reason Stop Dose Admin Acetaminophen 650 mg 07/25/20 12:52 Acetaminophen 325 Mg Tablet PO Q4H PRN Mild Pain (1-3) Or Fever Hydrocodone Bitart/Acetaminophen 1 tab 07/25/20 12:52 Hydrocodone/Acetaminophen (*Crx) 5-325 Mg Tablet PO Q4H PRN Pain Rated 4-6 Apixaban 10 mg 07/25/20 21:00 08/03/20 21:05 Apixaban 2.5 Mg Tablet PO 10 mg Q12HR BRONSON Administration Bupropion HCl 300 mg 07/26/20 09:00 08/03/20 09:16 Bupropion Hcl Xl (24 Hr) 150 Mg Tabcr PO 300 mg DAILY BRONSON Administration Carvedilol 25 mg 07/29/20 21:00 08/03/20 21:08 Carvedilol 12.5 Mg Tablet PO Not Given Q12HR BRONSON Diltiazem HCl 240 mg 07/25/20 17:00 08/03/20 17:48 Diltiazem Hcl Cd 240 Mg Cap.Er.24h PO 240 mg BID BRONSON Administration Escitalopram Oxalate 20 mg 07/25/20 09:00 08/03/20 09:16 Escitalopram Oxalate 10 Mg Tablet PO 20 mg DAILY BRONSON Administration Furosemide 40 mg 07/26/20 09:00 08/03/20 09:16 Furosemide 40 Mg Tablet PO 40 mg DAILY BRONSON Administration Glucagon 1 mg 07/25/20 12:52 Glucagon For Inj 1 Mg Vial IM PRN PRN Hypoglycemia Glucose 15 gm 07/25/20 12:52 Glucose Oral Gel 15 Gm Of Glucse In 37.5 Gm Tube PO PRN PRN Hypoglycemia Insulin Glargine 15 units 07/25/20 21:00 08/03/20 21:10 Insulin Glargine (*Bkc) 100 Units/Ml SUB-Q 15 units HS BRONSON Administration Insulin Human Lispro 4 - 8 units 07/25/20 17:00 08/03/20 17:47 Insulin Human Lispro (*Bkc) 100 Units/Ml SUB-Q 4 units TIDWM BRONSON Administration Protocol Lisinopril 40 mg 07/26/20 09:00 08/03/20 09:15 Lisinopril 20 Mg Tablet PO 40 mg DAILY BRONSON Administration Lorazepam 0.5 mg 07/25/20 12:55 Lorazepam (*Crx) 0.5 Mg Tablet PO Q6H PRN Anxiety Magnesium Hydroxide 30 ml 07/25/20 12:52 Magnesium Hydroxide Susp 30 Ml Udc PO DAILY PRN Constipation Polyethylene Glycol 17 gm 07/25/20 12:52 Polyethylene Glycol 3350 17 Gm Powd.Pack PO QAM PRN Constipation Potassium Chloride 40 meq 07/27/20 09:00 08/03/20 09:14 Potassium Chloride 20 Meq Packet (For Liquid) FEED TUBE 40 meq DAILY BRONSON Administration Rosuvastatin Calcium 20 mg 07/26/20 09:00 08/03/20 09:15 Rosuvastatin 10 Mg Tablet PO 20 mg DAILY BRONSON Administration Saccharomyces Boulardii 250 mg 07/29/20 13:00 08/03/20 17:48 Saccharomyces Boulardii 250 Mg Capsule PO 250 mg TID BRONSON Administration Tramadol HCl 25 mg 07/25/20 12:55 Tramadol Hcl (*Crx) 25 Mg Tablet PO Q6H PRN Pain Rated 4-6 Trazodone HCl 50 mg 07/25/20 12:52 Trazodone Hcl 50 Mg Tablet PO HS PRN Insomnia Labs Labs: Laboratory Results - last 24 hr 08/03/20 08/03/20 08/03/20 12:00 17:02 20:42 WBC RBC Hgb Hct MCV MCH MCHC RDW Plt Count MPV Sodium Potassium Chloride Carbon Dioxide Anion Gap BUN Creatinine Estim Creat Clear Calc Estimated GFR Glucose POC Capillary Glucose 165 H 232 H 225
[2020-08-04 11:54] LABS: Glucose Point of Care 272 mg/dl (65-105)
[2020-08-04 15:45] VITALS: BP 129/61; PULSE 54; RESP 18; TEMP 36.8; O2SAT 98
[2020-08-04 17:09] LABS: Glucose Point of Care 128 mg/dl (65-105)
[2020-08-04 21:24] VITALS: PULSE 56
[2020-08-04] MEDS: INSULIN GLARGINE (*BKC) 100 UNITS/ML 15 UNITS SUB-Q (21:24)
[2020-08-04 21:26] LABS: Glucose Point of Care 371 mg/dl (65-105)
[2020-08-05] VITALS: BP 123/57; PULSE 50; RESP 16; TEMP 36.7; O2SAT 96
[2020-08-05 08:00] VITALS: BP 130/62; PULSE 62; RESP 14; TEMP 36.4; O2SAT 98
--- NOTE | 2020-08-05 08:37 | PM.DS ---
DS: Admitting Diagnosis Admitting Diagnosis Admitting Diagnosis: Generalized weakness physical deconditioning <TOM Klein - Last Filed: 08/05/20 08:54> DS: Discharge Diagnosis Discharge Diagnosis (1) Weakness: Code(s): R53.1 - Weakness <TOM Klein - Last Filed: 08/05/20 08:54> Status: Acute <TOM Klein - Last Filed: 08/05/20 08:54> Assessment and Plan: ? Exhibit tolerance during physical activity as evidenced by a normal fluctuation of vital signs during physical activity. ? Patient will be ability to perform required activities of daily living. ? Provide appropriate nutrition for healing and strength. ? Use appropriate to prevent falls. ? Continue physical therapy/occupational therapy. 07/29/2020 Continue to work with PT/OT, Pt admits she needs more time with PT/OT before she can return home Patient walking 100 feet with contact-guard assist <TOM Klein - Last Filed: 08/05/20 08:54> (2) Toe injury: Qualifiers: Encounter type: subsequent encounter Laterality: left Qualified Code(s): S99.922D - Unspecified injury of left foot, subsequent encounter <TOM Klein - Last Filed: 08/05/20 08:54> Code(s): S99.929A - Unspecified injury of unspecified foot, initial encounter <TOM Klein - Last Filed: 08/05/20 08:54> Status: Acute <TOM Klein - Last Filed: 08/05/20 08:54> Assessment and Plan: Left great toe secondary to injury X-ray pending Start antibiotic for cellulitis doxycycline WBCs within normal limit Spoke with a orthopedic surgeon collections professional who recommended patient be placed in a postop boot and follow-up with primary care physician there is no need to follow-up with 07/29/2020 No complaint of pain, healing abrasions on both toes, continue with Doxycycline Cellulitis improved doxycycline stopped patient instructed to continue use of postop boot in a daytime and off at night and follow-up with her primary care physician for further instruction <TOM Klein - Last Filed: 08/05/20 08:54> (3) Atrial flutter: Qualifiers: Atrial flutter type: unspecified Qualified Code(s): I48.92 - Unspecified atrial flutter <TOM Klein - Last Filed: 08/05/20 08:54> Code(s): I48.92 - Unspecified atrial flutter <TOM Klein - Last Filed: 08/05/20 08:54> Status: Acute <Meek VirginiaTOM Durant - Last Filed: 08/05/20 08:54> Assessment and Plan: Continue metoprolol and Eliquis Metoprolol discontinue at some point Cardizem started at 250 mg twice daily decreased to 120 mg twice daily due to bradycardia <TOM Klein - Last Filed: 08/05/20 08:54> (4) Anxiety and depression: Code(s): F41.9 - Anxiety disorder, unspecified; F32.9 - Major depressive disorder, single episode, unspecified <TOM Klein - Last Filed: 08/05/20 08:54> Status: Acute <TOM Klein - Last Filed: 08/05/20 08:54> Assessment and Plan: Continue home medication 07/29/2020 Monitor mental emotional state, continue with Bupropion and Escitalopram <TOM Klein - Last Filed: 08/05/20 08:54> (5) CHF (congestive heart failure): Qualifiers: Heart failure chronicity: acute on chronic Heart failure type: unspecified Qualified Code(s): I50.9 - Heart failure, unspecified <TOM Klein - Last Filed: 08/05/20 08:54> Code(s): I50.9 - Heart failure, unspecified <TOM Klein - Last Filed: 08/05/20 08:54> Status: Acute <TOM Klein - Last Filed: 08/05/20 08:54> Assessment and Plan: Resolved Chest x-ray indicates interstitial edema BNP [id number] improving Weight daily 07/29/2020 No SOB or increased WOB, lungs clear, edema to feet non-pitting Resolved contin
[2020-08-05] MEDS: POTASSIUM CHLORIDE 20 MEQ PACKET (FOR LIQUID) 40 MEQ FEED TUBE (08:59)
[2020-08-05] MEDS: APIXABAN 2.5 MG TABLET 10 MG PO (09:00)
[2020-08-05] MEDS: lisinopriL 20 MG TABLET 40 MG PO (09:00)
[2020-08-05] MEDS: FUROSEMIDE 40 MG TABLET PO (09:00)
[2020-08-05] MEDS: ROSUVASTATIN 10 MG TABLET 20 MG PO (09:00)
[2020-08-05] MEDS: ESCITALOPRAM OXALATE 10 MG TABLET 20 MG PO (09:01)
[2020-08-05] MEDS: buPROPion HCL XL (24 HR) 150 MG TABCR 300 MG PO (09:01)
[2020-08-05 09:02] VITALS: PULSE 72
[2020-08-05] MEDS: carvediloL 12.5 MG TABLET 25 MG PO (09:02)
[2020-08-05] MEDS: SACCHAROMYCES BOULARDII 250 MG CAPSULE PO (09:03)
[2020-08-05 11:30] LABS: Glucose Point of Care 280 mg/dl (65-105)
[2020-08-05 11:36] LABS: Glucose Point of Care 285 mg/dl (65-105)
--- NOTE | 2020-08-05 13:58 | PC.NURSE ---
Pt discharged home. Discharge instructions given to pt verbally and written. Pt has a appointment with Dr. Esparza @ 1330 08/18/20 at his office in [place]. All personal items returned to pt. Pt taken to lobby by RN per wheel chair.
--- NOTE | 2020-08-12 15:02 | PC.NURSE ---
Unable to contact for discharge call back.
== END 2020-08-05 13:40 | disposition home or self-care (01) | DRG 948 ==
PROVIDERS: Nurse Practitioner; Nurse Practitioner Family; Admitting Provider Emergency Medicine; PCP Internal Medicine; Visit Provider Emergency Medicine
DX: R53.1 Weakness (principal); I48.92 Unspecified atrial flutter; I11.0 Hypertensive heart disease with heart failure; I50.9 Heart failure, unspecified; E78.5 Hyperlipidemia, unspecified; E11.9 Type 2 diabetes mellitus without complications; F32.9 Major depressive disorder, single episode, unspecified; F41.9 Anxiety disorder, unspecified; S92.415D Nondisplaced fracture of proximal phalanx of left great toe, subsequent encounter for fracture with routine healing; Z86.711 Personal history of pulmonary embolism; Z87.891 Personal history of nicotine dependence; Z79.01 Long term (current) use of anticoagulants
CPT/HCPCS: 36415; 80048; 82948; 84132; 85027; 97110; 97161; 97165; 97530; 97535; A9270; J1815

== ENCOUNTER 2021-03-03 14:32 | Observation (INO) | payer MEDICARE, SELFPAY ==
--- NOTE | ~2021-03-03 | CT_ITS ---
EXAMINATION: CTA chest DATE: 03/03/2021 18:24 INDICATION: Dyspnea, hypoxia. History of right pulmonary embolus TECHNIQUE: Computed tomography angiography (CTA) of the chest was performed with 100 mL Omnipaque-350 intravenous contrast timed to evaluate the pulmonary arteries. Coronal maximum intensity projection 3D-reconstructions were created by the technologist. Automated exposure control and iterative reconst ruction technique were employed. Exam dose: 951.08 mGy-cm total exam DLP. COMPARISON: 07/23/2020 portable AP chest 03/31/2020 CT pulmonary scan FINDINGS: There is diagnostic contrast enhancement of pulmonary stenosis of pulmonary embolism. Cardiomegaly. No pericardial effusion. There is coronary calcification. Scans calcification of the aorta and great vessels. No thoracic aortic aneurysm or dissection. No hilar or mediastinal mass lesion or lymphadenopathy. There are moderately large bilateral posteriorly layering free pleural effusions, right greater than left. There is associated compressive atelectasis involving particularly the lower lobes. Normal morphology of the adrenal glands. Scoliosis, kyphosis and degenerative change of the thoracic spine. Degenerative disc disease in the l ower cervical spine. Healed right sixth through ninth anterolateral rib fractures. IMPRESSION: Cardiomegaly, moderately large right greater than left pleural effusions and bilateral p redominantly lower lobe compressive atelectasis No evidence of pulmonary embolism Reviewed, dictated and finalized at [facility] Reviewed, dictated and finalized at [facility] TIC MOULD MAKER IMPRESSION: Cardiomegaly, moderately large right greater than left pleural eff usions and bilateral predominantly lower lobe compressive atelectasis No evidence of pulmonary embolism
[2021-03-03 14:55] VITALS: BP 195/71; PULSE 60; RESP 24; TEMP 36.3; O2SAT 92
--- NOTE | 2021-03-03 15:04 | ED.SOB ---
HPI - SOB/Dyspnea General Chief Complaint: Shortness of Breath/Dyspnea Stated Complaint: difficulity breathing/possible PE Time Seen by Provider: 03/03/21 15:05 Source: patient Mode of arrival: ambulatory Limitations: no limitations History of Present Illness HPI Narrative: 75-year-old woman with a history of congestive heart failure, pulmonary embolus, type 2 diabetes and hypertension comes to the emergency department complaining of increasing shortness breath over last 2 days. Patient states that she has had no chest pain, nausea, vomiting, diarrhea, fever, chills, cough or cold symptoms, abdominal pain, or dysuria. She states that she was diagnosed with a blood clot in her lung approximately 1 year ago and been having shortness of breath ever since. She takes Eliquis twice daily. Patient states that she did not take her insulin today nor has she been taking her diuretic because she is ?focused on her blood pressure. ? MD elicited complaint: shortness of breath Pertinent past history: congestive heart failure, diabetes and PE Onset (ago): day(s) (2) Timing: constant and progressively worsening Severity: moderate Exacerbating factors: lying flat and exertion Relieving factors: nothing Known history of: congestive heart failure and PE Treatment prior to arrival: none Related Data Home oxygen amount: none Home Medications Medication Instructions Recorded Confirmed bupropion HCl 300 mg PO DAILY 03/30/20 03/03/21 escitalopram oxalate 20 mg PO DAILY 03/30/20 03/03/21 furosemide 40 mg PO DAILY 03/30/20 03/03/21 insulin lispro 30 unit SUBCUT TIDWMEAL 03/30/20 03/03/21 lisinopril 40 mg PO DAILY 03/30/20 03/03/21 rosuvastatin [Crestor] 20 mg PO DAILY 03/30/20 03/03/21 Eliquis 5 mg PO Q12HR 03/03/21 03/03/21 Lantus Solostar U-100 Insulin 40 unit SUBCUT HS 03/03/21 03/03/21 potassium chloride 40 meq PO DAILY 03/03/21 Allergies Allergy/AdvReac Type Severity Reaction Status Date / Time No Known Allergies Allergy Verified 03/03/21 18:33 Review of Systems Review of Systems: All systems reviewed & are unremarkable except as noted in HPI and below Constitutional: Constitutional: Denies chills and Denies fever(s) ENT: Denies nasal congestion and Denies sore throat Cardiovascular: Cardiovascular: Denies chest pain and Denies radiating jaw, neck or arm pain Respiratory: Respiratory: Denies cough, Reports dyspnea and Denies wheezing Gastrointestinal: Gastrointestinal: Denies abdominal pain, Denies nausea and Denies vomiting Genitourinary: Genitourinary: Denies nocturia and Denies dysuria Musculoskeletal: Musculoskeletal: Denies back pain, Denies arthralgias and Denies joint swelling Integumentary/Breasts: Skin/Breast: Denies pruritus, Denies erythema and Denies rash Neurologic: Denies vertigo, Denies dizziness, Denies syncope and Denies focal weakness Hematologic/Lymphatic: Hematologic/Lymphatic: Denies easy bleeding and Denies easy bruising Allergic/Immunologic: Allergic/Immunologic: Denies lip swelling and Denies throat swelling PMFSH Past Medical History Medical History Anxiety and depression Hyperlipidemia Hypertension Type 2 diabetes mellitus Family History Family History Mother Breast cancer Social History Social History Smoking packs per day: 1 Smoking cigarettes per day: 20.0 Years smoked: 25 Smoking pack-years: 25.00 Smoking status: Former smoker Tobacco type: cigarettes Second hand tobacco smoke exposure: No Smoking end date: 07/08/79 Alcohol intake: never Substance use: never Gender identity (if verbalized by the patient): Female Sexual Orientation (if Verbalized by the Patient): Straight or Heterosexual Spiritual care concerns: No Exam Const: General: no acute distress and alert Nutritional Appearance:
--- NOTE | 2021-03-03 15:05 | ECG_ITS ---
Measurements Intervals [place] Rate: 56 P: 230 [place]: 166 QRS: -80 QRSD: 158 T: 53 QT: 510 QTc: 495 Interpretive Statements SINUS OR ECTOPIC ATRIAL BRADYCARDIA VENTRICULAR PREMATURE COMPLEX LEFT AXIS DEVIATION RIGHT BUNDLE BRANCH BLOCK CONSIDER INFERIOR INFARCT, AGE INDETERMINATE BASELINE ARTIFACT- I, II, III, AVR, AVL, AVF, V1, V4-V6 ABNORMAL ECG Electronically Signed On 03-03-2021 15:46:39 [employer]LAZE [employer]IXER by Idris Do D.O.
[2021-03-03] MEDS: ASPIRIN 81 MG CHEWABLE TABLET 324 MG PO (15:20)
[2021-03-03 15:27] LABS: Basophils Absolute Auto 0.02 K/mm3 (0.00-0.10); Basophils Percent Auto 0.2 % (0.0-1.0); Eosinophils Absolute Auto 0.02 K/mm3 (0.02-0.50); Eosinophils Percent Auto 0.2 % (1.0-6.0); Hematocrit 41.8 % (35.0-42.0); Immature Granulocyte Absolute 0.04 K/mm3 (0.00-0.00); Immature Granulocyte Percent A 0.5 % (0.0-0.0); Lymphocytes Absolute Auto 0.76 K/mm3 (1.10-4.50); Lymphocytes Percent Auto 8.9 % (18.0-42.0); Mean Corpuscular HGB Conc 33.5 g/dL (32.0-36.0); Mean Corpuscular Hemoglobin 29.4 pg (27.0-31.0); Mean Corpuscular Volume 87.6 fL (78.0-102.0); Mean Platelet Volume 11.1 fl (9.2-11.8); Monocytes Absolute Auto 0.53 K/mm3 (0.10-0.90); Monocytes Percent Auto 6.2 % (2.0-11.0); Neutrophils Absolute Auto 7.2 K/mm3 (1.7-7.2); Platelet Count Result 271 K/mm3 (150-420); Red Blood Count 4.77 M/mm3 (4.20-5.40); Red Cell Distribution Width 12.6 % (11.6-14.4); White Blood Count 8.6 K/mm3 (4.8-10.8)
[2021-03-03 15:59] LABS: Alanine Aminotransferase 9 U/L (14-59); Albumin Level 3.3 g/dL (3.4-5.0); Alkaline Phosphatase 131 U/L (46-116); Anion Gap 14 mmol/L (8-16); Aspartate Amino Transferase < 10 U/L (15-37); Bilirubin,Total 0.7 mg/dL (0.00-1.00); Blood Urea Nitrogen 11 mg/dL (7-18); Calcium 9.1 mg/dL (8.5-10.1); Carbon Dioxide 25 mmol/L (21-32); Chloride 94 mmol/L (98-108); Estimated CRCL calculation 41 ml/min; Estimated Glomerular Filt Rate 45; NT Pro B Type Natriuretic Pept 5079 pg/mL (0-450); Potassium 4.2 mmol/L (3.5-5.1); Sodium 133 mmol/L (136-145); Total Protein 7.5 g/dL (6.4-8.2)
[2021-03-03 16:00] LABS: Glucose 641 mg/dL (70-99); Osmolality Calculated 305 mOsm/kg (285-295)
[2021-03-03 16:01] LABS: Troponin I 92.9 ng/L (0.00-60.4)
--- NOTE | 2021-03-03 16:01 | PC.NURSE ---
Lab called with glucose of 641 and Troponin of 92.9. Dr. Crespo notified.
[2021-03-03 16:19] LABS: Influenza A QL RT-PCR Negative (Negative); Influenza B QL RT-PCR Negative (Negative); SARS-CoV-2 RNA PCR Negative (Negative)
--- NOTE | 2021-03-03 16:36 | PC.NURSE ---
Assisted pt with using bedside commode. Pt became short of breath but was able to get back into bed. Saturation 85-86% on room air. Pt placed on 2L of oxygen per nasal cannula. Sat increased to 99%.
[2021-03-03] MEDS: FUROSEMIDE INJ 40 MG/4 ML VIAL IV PUSH (16:38)
[2021-03-03 17:54] VITALS: BP 173/61; PULSE 56; RESP 16; O2SAT 100
--- NOTE | 2021-03-03 18:32 | PC.NURSE ---
Urine taken to lab.
[2021-03-03 18:36] LABS: Add Urine Microscopic? YES; Appearance Urine Clear (Clear); Bilirubin Urine Negative (Negative); Blood Urine 1+ (Negative); Color Urine Light Yellow (Yellow); Glucose Urine UA 3+ (Negative); Ketones Urine Trace (Negative); Leukocyte Esterase Ur Trace LEU/UL (Negative); Nitrate Urine Negative (Negative); Protein Urine 2+ (Negative); Specific Grav Ur 1.015 (1.010-1.020); Urobilinogen Urine 0.2 mg/dL (0.2-1.0)
[2021-03-03 18:41] LABS: Bacteria Urine Trace /hpf; RBC Urine 0-2 /hpf (0-2); Squamous Epithelial Cell Urine Few /hpf (Few); WBC Urine 0-3 /hpf (0-3)
[2021-03-03 19:02] VITALS: BP 156/64; PULSE 60; RESP 16; O2SAT 100
[2021-03-03 20:30] VITALS: BP 148/67; PULSE 67; RESP 17; O2SAT 100
[2021-03-03 20:34] LABS: Magnesium 1.8 mg/dL (1.8-2.4); Troponin I 82.8 ng/L (0.00-60.4)
--- NOTE | 2021-03-03 20:39 | PC.NURSE ---
pt admitted for 23 hour observation into room 204, report called to BETITO Green
[2021-03-03 20:45] VITALS: BP 163/66; PULSE 64; RESP 18; TEMP 36.7; O2SAT 98
--- NOTE | 2021-03-03 21:04 | ADMGEN ---
This patient, Teri Harrington, was admitted to 2nd Floor Room 204-2. Patient oriented to hospital policies and general routines including ID bracelet, bed and alarms, visiting hours, pain management, procedures, bathroom and other care routines, personal items, smoking policy, room service/diet, and visiting hours. Information on how to activate the Rapid Response Team has been discussed. Patient are encouraged to report perceived risks to care and to ask questions if they do not understand what they are told or what they should do. Patient A&Ox3. Transferred from stretcher to bed with SBA. Patient lives in her own home with her 2 handicapped sons. There is no heat or water in home. Patient's respirations even and unlabored. No SOB noted. Denies feeling SOB. O2 on @ 2 lpm/nc. Abd soft and non-distended. No edema noted. Pleasant and cooperative. 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
[2021-03-03 21:11] VITALS: BMI 31.1
[2021-03-03] MEDS: APIXABAN 2.5 MG TABLET 5 MG PO (21:31)
[2021-03-03] MEDS: INSULIN GLARGINE (*BKC) 100 UNITS/ML 40 UNITS SUB-Q (21:37)
[2021-03-03 22:04] LABS: Glucose Point of Care 100 mg/dl (65-105)
[2021-03-03 23:53] LABS: Glucose Point of Care 136 mg/dl (65-105)
[2021-03-03 23:54] VITALS: BP 151/60; PULSE 58; RESP 16; TEMP 36.2; O2SAT 98
[2021-03-04] VITALS (8 sets, daily range): BP systolic 162–179; BP diastolic 58–64; PULSE 58–64; RESP 16–20; TEMP 36.2–36.7; O2SAT 96–98
--- NOTE | 2021-03-04 01:55 | PC.NURSE ---
Lab called to report critical troponin value of 79.9; Dr. Crespo notified and no new orders at this time.
[2021-03-04 01:56] LABS: Troponin I 79.9 ng/L (0.00-60.4)
[2021-03-04 02:00] LABS: Glucose Point of Care 144 mg/dl (65-105)
[2021-03-04 04:04] LABS: Glucose Point of Care 140 mg/dl (65-105)
[2021-03-04 05:12] LABS: Basophils Absolute Auto 0.01 K/mm3 (0.00-0.10); Basophils Percent Auto 0.2 % (0.0-1.0); Eosinophils Percent Auto 1.7 % (1.0-6.0); Hematocrit 37.2 % (35.0-42.0); Hemoglobin 12.3 g/dL (11.7-13.8); Immature Granulocyte Absolute 0.01 K/mm3 (0.00-0.00); Immature Granulocyte Percent A 0.2 % (0.0-0.0); Lymphocytes Absolute Auto 1.25 K/mm3 (1.10-4.50); Lymphocytes Percent Auto 21.1 % (18.0-42.0); Mean Corpuscular HGB Conc 33.1 g/dL (32.0-36.0); Mean Corpuscular Hemoglobin 29.1 pg (27.0-31.0); Mean Corpuscular Volume 87.9 fL (78.0-102.0); Mean Platelet Volume 10.4 fl (9.2-11.8); Monocytes Absolute Auto 0.74 K/mm3 (0.10-0.90); Monocytes Percent Auto 12.5 % (2.0-11.0); Neutrophils Absolute Auto 3.8 K/mm3 (1.7-7.2); Neutrophils Percent Auto 64.3 % (50.0-70.0); Platelet Count Result 239 K/mm3 (150-420); Red Blood Count 4.23 M/mm3 (4.20-5.40); Red Cell Distribution Width 13.2 % (11.6-14.4); White Blood Count 5.9 K/mm3 (4.8-10.8)
[2021-03-04 05:30] LABS: Alanine Aminotransferase 8 U/L (14-59); Albumin Level 2.7 g/dL (3.4-5.0); Alkaline Phosphatase 96 U/L (46-116); Anion Gap 7 mmol/L (8-16); Aspartate Amino Transferase < 10 U/L (15-37); Bilirubin,Total 0.3 mg/dL (0.00-1.00); Blood Urea Nitrogen 14 mg/dL (7-18); Calcium 8.6 mg/dL (8.5-10.1); Carbon Dioxide 31 mmol/L (21-32); Chloride 101 mmol/L (98-108); Estimated CRCL calculation 41 ml/min; Estimated Glomerular Filt Rate 47; Glucose 134 mg/dL (70-99); Osmolality Calculated 290 mOsm/kg (285-295); Sodium 139 mmol/L (136-145); Total Protein 6.2 g/dL (6.4-8.2)
[2021-03-04 05:47] LABS: Troponin I 79.6 ng/L (0.00-60.4)
[2021-03-04 05:50] LABS: Glucose Point of Care 123 mg/dl (65-105)
[2021-03-04 07:50] LABS: Glucose Point of Care 133 mg/dl (65-105)
[2021-03-04 08:33] LABS: NT Pro B Type Natriuretic Pept 3689 pg/mL (0-450)
[2021-03-04] MEDS: POTASSIUM CHLORIDE 20 MEQ PACKET (FOR LIQUID) 40 MEQ PO (08:34)
[2021-03-04] MEDS: FUROSEMIDE INJ 40 MG/4 ML VIAL IV PUSH (08:34)
[2021-03-04] MEDS: buPROPion HCL XL (24 HR) 150 MG TABCR 300 MG PO (08:36)
[2021-03-04] MEDS: ESCITALOPRAM OXALATE 10 MG TABLET 20 MG PO (08:37)
[2021-03-04] MEDS: ROSUVASTATIN 10 MG TABLET 20 MG PO (08:37)
[2021-03-04] MEDS: APIXABAN 2.5 MG TABLET 5 MG PO ×2 (08:37→20:55)
[2021-03-04] MEDS: lisinopriL 20 MG TABLET 40 MG PO (08:38)
[2021-03-04] MEDS: POTASSIUM CHLORIDE 20 MEQ TABLET 40 MEQ PO (08:38)
--- NOTE | 2021-03-04 09:59 | P.PN_ITS ---
Progress Note: A&P Assessment and Plan (1) Hyperglycemia: Code(s): R73.9 - Hyperglycemia, unspecified Status: Acute Assessment and Plan: * patient's blood sugars in the 600 currently 140 * patient noncompliance * continue Accu-Cheks with hypoglycemic protocol and sliding scale * Adjust medication as needed * continue diabetic diet (2) Congestive heart failure: Qualifiers: Heart failure chronicity: acute on chronic Heart failure type: unspecified Qualified Code(s): I50.9 - Heart failure, unspecified Code(s): I50.9 - Heart failure, unspecified Status: Acute Assessment and Plan: * uncompensated congestive heart failure patient not compliant * BNP pending * continue intake and output and daily weights * received 40 mEq of Lasix IV push in the ED, continue home medication also received an additional dose of Lasix 40 meq * (3) Hypoxia: Code(s): R09.02 - Hypoxemia Status: Acute Assessment and Plan: * Secondary to congestive heart failure * treat underlying the cause * Continue Lasix continue use of supplementary oxygen (4) Elevated troponin: Code(s): R77.8 - Other specified abnormalities of plasma proteins Status: Acute Assessment and Plan: * troponin 92.9>82.8>79.9>79.6 * possibly secondary to congestive heart failure * will continue to trend * ekg sb 56 (5) Anxiety and depression: Code(s): F41.9 - Anxiety disorder, unspecified; F32.9 - Major depressive disorder, single episode, unspecified Status: Acute (6) Pulmonary embolism: Qualifiers: Pulmonary embolism type: single subsegmental (without acute cor pulmonale) Qualified Code(s): I26.93 - Single subsegmental pulmonary embolism without acute cor pulmonale Code(s): I26.99 - Other pulmonary embolism without acute cor pulmonale Status: Acute Assessment and Plan: * Will discontinue eliquis on discharge new cta does not indicate PE (7) Hyperlipidemia: Qualifiers: Hyperlipidemia type: unspecified Qualified Code(s): E78.5 - Hyperlipidemia, unspecified Code(s): E78.5 - Hyperlipidemia, unspecified Status: Acute Assessment and Plan: * . continue statins (8) Hypertension: Qualifiers: Hypertension type: essential hypertension Qualified Code(s): I10 - Essential (primary) hypertension Code(s): I10 - Essential (primary) hypertension Status: Acute Assessment and Plan: * elevated * patient now compliant * cont home medication * will adjust as needed (9) Type 2 diabetes mellitus: Qualifiers: Diabetes mellitus complication status: without complication Diabetes m [facility] living insulin use: with termite exterminator use Qualified Code(s): E11.9 - Type 2 diabetes mellitus without complications; Z79.4 - [facility] (current) use of insulin Code(s): E11.9 - Type 2 diabetes mellitus without complications Status: Acute Assessment and Plan: * BS 308 * Cont home medication with hypoglycemic protocol and Accu-Cheks hypoglycemic protocol and sliding scale. * Continue diabetic diet * Adjust medication as needed (10) UTI (urinary tract infection): Code(s): N39.0 - Urinary tract infection, site not specified Status: Acute Assessment and Plan: * Patient UA positive for leukocyte esterase, bacteria and protein * started bactrum * UA culture pending Subjective Date/time seen: 03/04/21 09:59 This 75-year-old female presented to our ED w
--- NOTE | 2021-03-04 09:59 | WPDPN ---
Progress Note: A&P Assessment and Plan (1) Hyperglycemia: Code(s): R73.9 - Hyperglycemia, unspecified Status: Acute Assessment and Plan: patient's blood sugars in the 600 currently 140 patient noncompliance continue Accu-Cheks with hypoglycemic protocol and sliding scale Adjust medication as needed continue diabetic diet (2) Congestive heart failure: Qualifiers: Heart failure chronicity: acute on chronic Heart failure type: unspecified Qualified Code(s): I50.9 - Heart failure, unspecified Code(s): I50.9 - Heart failure, unspecified Status: Acute Assessment and Plan: uncompensated congestive heart failure patient not compliant BNP pending continue intake and output and daily weights received 40 mEq of Lasix IV push in the ED, continue home medication also received an additional dose of Lasix 40 meq (3) Hypoxia: Code(s): R09.02 - Hypoxemia Status: Acute Assessment and Plan: Secondary to congestive heart failure treat underlying the cause Continue Lasix continue use of supplementary oxygen (4) Elevated troponin: Code(s): R77.8 - Other specified abnormalities of plasma proteins Status: Acute Assessment and Plan: troponin 92.9>82.8>79.9>79.6 possibly secondary to congestive heart failure will continue to trend ekg sb 56 (5) Anxiety and depression: Code(s): F41.9 - Anxiety disorder, unspecified; F32.9 - Major depressive disorder, single episode, unspecified Status: Acute (6) Pulmonary embolism: Qualifiers: Pulmonary embolism type: single subsegmental (without acute cor pulmonale) Qualified Code(s): I26.93 - Single subsegmental pulmonary embolism without acute cor pulmonale Code(s): I26.99 - Other pulmonary embolism without acute cor pulmonale Status: Acute Assessment and Plan: Will discontinue eliquis on discharge new cta does not indicate PE (7) Hyperlipidemia: Qualifiers: Hyperlipidemia type: unspecified Qualified Code(s): E78.5 - Hyperlipidemia, unspecified Code(s): E78.5 - Hyperlipidemia, unspecified Status: Acute Assessment and Plan: . continue statins (8) Hypertension: Qualifiers: Hypertension type: essential hypertension Qualified Code(s): I10 - Essential (primary) hypertension Code(s): I10 - Essential (primary) hypertension Status: Acute Assessment and Plan: elevated patient now compliant cont home medication will adjust as needed (9) Type 2 diabetes mellitus: Qualifiers: Diabetes mellitus complication status: without complication Diabetes mellitus assisted insulin use: with roasterman use Qualified Code(s): E11.9 - Type 2 diabetes mellitus without complications; Z79.4 - half-way (current) use of insulin Code(s): E11.9 - Type 2 diabetes mellitus without complications Status: Acute Assessment and Plan: BS 308 Cont home medication with hypoglycemic protocol and Accu-Cheks hypoglycemic protocol and sliding scale. Continue diabetic diet Adjust medication as needed (10) UTI (urinary tract infection): Code(s): N39.0 - Urinary tract infection, site not specified Status: Acute Assessment and Plan: Patient UA positive for leukocyte esterase, bacteria and protein started bactrum UA culture pending Subjective Date/time seen: 03/04/21 09:59 This 75-year-old female presented to our ED with complaint of shortness of breath. Patient has a past medical history anxiety and depression, hyperlipidemia, hypertension type 2 diabetes. According to patient a couple days ago she started to experience shortness of breath. Patient notes that she has not been taking her Lasix at home. She notes that she focused on her blood pressure and PE medication.vs 97.9, 58,18,97%1lNC,162/58, WBC 8.6, hemoglobin 15, 14.0, hematocrit 41.8, platele
[2021-03-04 10:13] LABS: Glucose Point of Care 229 mg/dl (65-105)
[2021-03-04 11:34] LABS: Glucose Point of Care 308 mg/dl (65-105)
[2021-03-04 16:18] LABS: Glucose Point of Care 128 mg/dl (65-105)
--- NOTE | 2021-03-04 21:27 | PC.NURSE ---
Insulin held due to blood sugar 36, snacks given and is 106 now.
[2021-03-05] VITALS: BP 152/54; PULSE 61; RESP 20; TEMP 36; O2SAT 98
[2021-03-05 01:30] LABS: Glucose Point of Care 106 mg/dl (65-105)
[2021-03-05 01:30] LABS: Glucose Point of Care 36 mg/dl (65-105)
[2021-03-05 04:00] VITALS: BP 159/60; PULSE 58; RESP 20; TEMP 36.2; O2SAT 96
[2021-03-05 05:31] LABS: Hematocrit 38.5 % (35.0-42.0); Hemoglobin 12.4 g/dL (11.7-13.8); Mean Corpuscular HGB Conc 32.2 g/dL (32.0-36.0); Mean Corpuscular Hemoglobin 28.8 pg (27.0-31.0); Mean Corpuscular Volume 89.5 fL (78.0-102.0); Mean Platelet Volume 10.6 fl (9.2-11.8); Platelet Count Result 228 K/mm3 (150-420); Red Cell Distribution Width 13.3 % (11.6-14.4); White Blood Count 5.6 K/mm3 (4.8-10.8)
[2021-03-05 05:58] LABS: Alanine Aminotransferase 9 U/L (14-59); Albumin Level 2.6 g/dL (3.4-5.0); Alkaline Phosphatase 90 U/L (46-116); Anion Gap 9 mmol/L (8-16); Aspartate Amino Transferase 10 U/L (15-37); Bilirubin,Total 0.3 mg/dL (0.00-1.00); Blood Urea Nitrogen 18 mg/dL (7-18); Calcium 8.7 mg/dL (8.5-10.1); Carbon Dioxide 28 mmol/L (21-32); Chloride 102 mmol/L (98-108); Estimated CRCL calculation 37 ml/min; Estimated Glomerular Filt Rate 42; Glucose 147 mg/dL (70-99); NT Pro B Type Natriuretic Pept 1431 pg/mL (0-450); Osmolality Calculated 292 mOsm/kg (285-295); Sodium 139 mmol/L (136-145); Total Protein 6.2 g/dL (6.4-8.2)
[2021-03-05 08:00] VITALS: BP 184/68; PULSE 58; PULSE 64; RESP 16; TEMP 36.6; O2SAT 96
[2021-03-05] MEDS: POTASSIUM CHLORIDE 20 MEQ PACKET (FOR LIQUID) 40 MEQ PO (08:55)
[2021-03-05] MEDS: FUROSEMIDE INJ 40 MG/4 ML VIAL IV PUSH (08:57)
[2021-03-05] MEDS: APIXABAN 2.5 MG TABLET 5 MG PO (08:58)
[2021-03-05] MEDS: ROSUVASTATIN 10 MG TABLET 20 MG PO (08:58)
[2021-03-05] MEDS: buPROPion HCL XL (24 HR) 150 MG TABCR 300 MG PO (08:58)
[2021-03-05] MEDS: ESCITALOPRAM OXALATE 10 MG TABLET 20 MG PO (09:00)
[2021-03-05] MEDS: lisinopriL 20 MG TABLET 40 MG PO (09:00)
[2021-03-05] MEDS: cloNIDine HCL 0.1 MG TABLET PO (09:04)
--- NOTE | 2021-03-05 09:25 | P.DS_ITS ---
DS: Admitting Diagnosis Discharge Date 03/05/2021 <Palbryant VirginiaTOM Durant - Last Filed: 03/05/21 11:35> Admitting Diagnosis chf excerabation <Palbryant VirginiaTOM Durant - Last Filed: 03/05/21 11:35> DS: Discharge Diagnosis Discharge Diagnosis (1) Hyperglycemia: Code(s): R73.9 - Hyperglycemia, unspecified <Meek VirginiaTOM Durant - Last Filed: 03/05/21 11:35> Status: Acute <Meek ColemanTOM Durant - Last Filed: 03/05/21 11:35> Assessment and Plan: * patient's blood sugars in the 600 currently 140 * patient noncompliance * continue Accu-Cheks with hypoglycemic protocol and sliding scale * Adjust medication as needed * continue diabetic diet <TOM Klein - Last Filed: 03/05/21 11:35> (2) Congestive heart failure: Qualifiers: Heart failure chronicity: acute on chronic Heart failure type: unspecified Qualified Code(s): I50.9 - Heart failure, unspecified <Palbryant ColemanTOM Durant - Last Filed: 03/05/21 11:35> Code(s): I50.9 - Heart failure, unspecified <Meek ColemanTOM Durant Sal Last F iled: 03/05/21 11:35> Status: Acute <Meek VirginiaTOM Durant - Last Filed: 03/05/21 11:35> Assessment and Plan: * uncompensated congestive heart failure patient not compliant * BNP pending * continue intake and output and daily weights * received 40 mEq of Lasix IV push in the ED, continue home medication also received an additional dose of Lasix 40 meq * <TOM Klein - Last Filed: 03/05/21 11:35> (3) Hypoxia: Code(s): R09.02 - Hypoxemia <TOM Klein - Last Filed: 03/05/21 11:35> Status: Acute <TOM Klein - Last Filed: 03/05/21 11:35> Assessment and Plan: * Secondary to congestive heart failure * treat underlying the cause * Continue Lasix continue use of supplementary oxygen <Meek Gray PETER-C - Last Filed: 03/05/21 11:35> (4) Elevated troponin: Code(s): R77.8 - Other specified abnormalities of plasma proteins <Meek Gray EXTRA HAND-C - Last Filed: 03/05/21 11:35> Status: Acute <Meek Gray PETER-C - Last Filed: 03/05/21 11:35> Assessment and Plan: * troponin 92.9>82.8>79.9>79.6 * possibly secondary to congestive heart failure * will continue to trend * ekg sb 56 <Meek Gray PETER-C - Last Filed: 03/05/21 11:35> (5) Anxiety and depression: Code(s): F41.9 - Anxiety disorder, unspecified; F32.9 - Major depressive disorder, single episode, unspecified <Meek Gray PETER-C - Last Filed: 03/05/21 11:35> Status: Acute <Meek Gray PETER-C - Last Filed: 03/05/21 11:35> (6) Pulmonary embolism: Qualifiers: Pulmonary embolism type: single subsegmental (without acute cor pulmonale) Qualified Code(s): I26.93 - Single subsegmental pulmonary embolism without acute cor pulmonale <Meek Gray PETER-C - Last Filed: 03/05/21 11:35> Code(s): I26.99 - Other pulmonary embolism without acute cor pulmonale <Meek Gray EXTRA HAND-C - Last Filed: 03/05/21 11:35> Status: Acute <Meek Gray EXTRA HAND-C - Last Filed: 03/05/21 11:35> Assessment and Plan: * Will discontinue eliquis on discharge new cta does not indicate PE <Meek Gray EXTRA HAND-C - Last Filed: 03/05/21 11:35> (7) Hyperlipidemia: Qualifiers: Hyperlipidemia type: unspecified Qualified Code(s): E78.5 - Hyperlipidemia, unspecified <Meek Gray EXTRA HAND-C - Last Filed: 03/05/21 11:35> Code(s): E78.5 - Hyperlipi
--- NOTE | 2021-03-05 09:25 | PM.DS ---
DS: Admitting Diagnosis Discharge Date 03/05/2021 <TOM Klein - Last Filed: 03/05/21 11:35> Admitting Diagnosis chf excerabation <TOM Klein - Last Filed: 03/05/21 11:35> DS: Discharge Diagnosis Discharge Diagnosis (1) Hyperglycemia: Code(s): R73.9 - Hyperglycemia, unspecified <TOM Klein - Last Filed: 03/05/21 11:35> Status: Acute <TOM Klein - Last Filed: 03/05/21 11:35> Assessment and Plan: patient's blood sugars in the 600 currently 140 patient noncompliance continue Accu-Cheks with hypoglycemic protocol and sliding scale Adjust medication as needed continue diabetic diet <TOM Klein - Last Filed: 03/05/21 11:35> (2) Congestive heart failure: Qualifiers: Heart failure chronicity: acute on chronic Heart failure type: unspecified Qualified Code(s): I50.9 - Heart failure, unspecified <TOM Klein - Last Filed: 03/05/21 11:35> Code(s): I50.9 - Heart failure, unspecified <TOM Klein - Last Filed: 03/05/21 11:35> Status: Acute <TOM Klein - Last Filed: 03/05/21 11:35> Assessment and Plan: uncompensated congestive heart failure patient not compliant BNP pending continue intake and output and daily weights received 40 mEq of Lasix IV push in the ED, continue home medication also received an additional dose of Lasix 40 meq <TOM Klein - Last Filed: 03/05/21 11:35> (3) Hypoxia: Code(s): R09.02 - Hypoxemia <TOM Klein - Last Filed: 03/05/21 11:35> Status: Acute <TOM Klein - Last Filed: 03/05/21 11:35> Assessment and Plan: Secondary to congestive heart failure treat underlying the cause Continue Lasix continue use of supplementary oxygen <Meek Gray CHERRIC - Last Filed: 03/05/21 11:35> (4) Elevated troponin: Code(s): R77.8 - Other specified abnormalities of plasma proteins <CHERRI KleinC - Last Filed: 03/05/21 11:35> Status: Acute <CHERRI KleinC - Last Filed: 03/05/21 11:35> Assessment and Plan: troponin 92.9>82.8>79.9>79.6 possibly secondary to congestive heart failure will continue to trend ekg sb 56 <Meek Gray PETER-C - Last Filed: 03/05/21 11:35> (5) Anxiety and depression: Code(s): F41.9 - Anxiety disorder, unspecified; F32.9 - Major depressive disorder, single episode, unspecified <CHERRI KleinC - Last Filed: 03/05/21 11:35> Status: Acute <Meek Gray TOM - Last Filed: 03/05/21 11:35> (6) Pulmonary embolism: Qualifiers: Pulmonary embolism type: single subsegmental (without acute cor pulmonale) Qualified Code(s): I26.93 - Single subsegmental pulmonary embolism without acute cor pulmonale <Meek Gray CHERRIC - Last Filed: 03/05/21 11:35> Code(s): I26.99 - Other pulmonary embolism without acute cor pulmonale <Meek Gray PETER-C - Last Filed: 03/05/21 11:35> Status: Acute <Meek Gray CHERRIC - Last Filed: 03/05/21 11:35> Assessment and Plan: Will discontinue eliquis on discharge new cta does not indicate PE <Meek Gray TOM - Last Filed: 03/05/21 11:35> (7) Hyperlipidemia: Qualifiers: Hyperlipidemia type: unspecified Qualified Code(s): E78.5 - Hyperlipidemia, unspecified <Meek Gray PETER-C - Last Filed: 03/05/21 11:35> Code(s): E78.5 - Hyperlipidemia, unspecified <TOM Klein - Last Filed: 03/05/21 11:35> Status: Acute <TOM Klein - Last Filed: 03/05/21 11:35> Assessment and Plan: . continue statins <TOM Klein - Last Filed: 03/05/21 11:35> (8) Hypertension: Qualifiers: Hypertension type: essential
[2021-03-05 09:35] LABS: Troponin I 72.7 ng/L (0.00-60.4)
[2021-03-05 10:24] LABS: Glucose Point of Care 303 mg/dl (65-105)
[2021-03-05 10:30] VITALS: PULSE 62; O2SAT 96
[2021-03-05 10:36] VITALS: PULSE 84; O2SAT 97
--- NOTE | 2021-03-05 10:44 | PCPTNOTE ---
No Care Plan initiated due to patient being discharged today.
--- NOTE | 2021-03-05 10:48 | HOMEO2EVAL ---
Evaluation was performed at [facility] [place] Home Oxygen Evaluation RC: Home Oxygen (O2) Evaluation Start: 03/05/21 09:29 Freq: ONCE Status: Active Protocol: RPE Activity Type Activity Date Activity User E-Sign Co-Sign Detail Recorded Client Recorded Date Recorded By Document 03/05/21 10:30 AMADOU [id number] 03/05/21 10:48 AMADOU Document 03/05/21 10:36 AMADOU [id number] 03/05/21 10:48 AMADOU 03/05/21 03/05/21 10:30 10:36 Home O2 Evaluation Test Phase Resting Exercise Oxygen Delivery Room Air Room Air Pulse Oximetry (90-100 %) 96 97 Pulse Rate (60-100 beats/min) 62 84 Activity Tolerance Poor Rating of Perceived Dyspnea (PD) +1 Mild, Noticeable to the Participant but Not to an Observer Rate of Perceived Exertion (PE) 13 Somewhat Hard Ambulation Distance (feet) 250 Ambulation Distance (meters) 76.19 Home Oxygen Evaluation Comments will begin walk patient walked pushing w/c for support on room air. Sp02 maintainted > 92%. Patient c/ o of arms being tired and stopped frequently to lean over w/c. Treatment Charges O2 Evaluation - Inpatient
[2021-03-05 12:00] VITALS: BP 156/72; PULSE 72; RESP 16; TEMP 36.6; O2SAT 97
--- NOTE | 2021-03-05 13:38 | PC.NURSE ---
Patient discharged from [facility] to home at 1320. Patient assisted to public transportation vehicle via w/c, accompanied by database report writer. Discharge instructions discussed with patient, and patient voiced understanding. New prescription faxed to pharmacy and Patient advised to leaf size picker medication. Personal belongings sent with patient.
--- NOTE | 2021-03-09 11:40 | PC.NURSE ---
Unable to contact for discharge call back.
[2021-03-16 10:28] LABS: Glucose Point of Care 299 mg/dl (65-105)
== END 2021-03-05 13:20 | disposition home or self-care (01) ==
LOC: CHSED 19:40 → CHS2ND 20:22
PROVIDERS: Nurse Practitioner; Admitting Provider Emergency Medicine; Emergency Provider Emergency Medicine; PCP Internal Medicine; Visit Provider Emergency Medicine
DX: I11.0 Hypertensive heart disease with heart failure (principal); I50.9 Heart failure, unspecified; N39.0 Urinary tract infection, site not specified; E11.65 Type 2 diabetes mellitus with hyperglycemia; E78.5 Hyperlipidemia, unspecified; E11.9 Type 2 diabetes mellitus without complications; R09.02 Hypoxemia; R77.8 Other specified abnormalities of plasma proteins; F32.A Depression, unspecified; F41.9 Anxiety disorder, unspecified; Z86.711 Personal history of pulmonary embolism; Z79.4 Long term (current) use of insulin; Z79.01 Long term (current) use of anticoagulants; Z87.891 Personal history of nicotine dependence; Z91.19 Patient's noncompliance with other medical treatment and regimen
CPT/HCPCS: 36415; 71275; 80053; 81001; 82948; 83735; 83880; 84484; 85025; 85027; 87086; 87502; 93005; 94618; 96374; 96376; 97161; 99285; A9270; C9803; G0378; J1815; J1940; Q9967; U0003; U0005

== ENCOUNTER 2021-04-04 15:55 | Observation (INO) | payer MEDICARE, SELFPAY ==
[2021-04-04] VITALS (8 sets, daily range): BP systolic 140–181; BP diastolic 57–88; PULSE 56–89; RESP 16–20; TEMP 36.3–37.6; O2SAT 88–98; BMI 29.5
--- NOTE | ~2021-04-04 | XR_ITS ---
EXAMINATION: XR chest 2V DATE: 04/04/2021 16:47 INDICATION: Shortness of breath TECHNIQUE: PA and lateral views of the chest are obtained. COMPARISON: 07/23/2020 FINDINGS: Cardiomegaly is noted. There is a mild diffuse interstitial pattern. Small pleural effusion s are present. There are minimal airspace opacities of the lung bases. There is moderate thoracic spo ndylosis. IMPRESSION: 1. Cardiomegaly with mild pulmonary edema. 2. Small pleural effusions. 3. Bibasilar airspace opacities, likely atelectasis. Reviewed, dictated and finalized at location F. BILITATION MANAGER
--- NOTE | ~2021-04-04 | CT_ITS ---
EXAMINATION: CTA chest PE protocol EXAM DATE: 04/05/2021 08:21 INDICATION: Elevated dimer, hypoxia . Pulmonary embolism on CT March 2020. TECHNIQUE: Spiral CTA of the chest (pulmonary arteries) was performed with 100 cc Omnipaque 350 intr avenous contrast injection. Images were acquired during the pulmonary arterial phase. Coronal maxi mum intensity projection 3D-reconstructions were created by the technologist on dedicated workstation . Axial, coronal and sagittal reformatted images were reviewed. The dose-length product (DLP) for t his examination was 542.65 mGy-cm. The exposure was tailored according to patient size (auto mA exp osure control), and iterative reconstruction (ASIR) was used as additional dose reduction technique. Comparison is made to prior examination from 03/03/2021, 03/31/2020. FINDINGS: The main, central pulmonary arteries are dilated which can indicate elevated pulmonary jarret rial pressure, pulmonary arterial hypertension. There is cardiomegaly. No filling defects within the pulmonary arteries, no pulmonary emboli suspected. Moderate sized bilateral pleural effusions right g reater than left. There is adjacent multisegmental left basilar dependent atelectasis and subsegmenta l right basilar atelectasis. Mild to moderate coronary artery calcifications. No pericardial effusion . No thoracic aortic dissection or aneurysm. There is an enlarged prevascular lymph node measuring 1. 6 x 2.4 cm, measured 0.9 x 1.2 cm a month ago, and 1.4 x 2.2 cm March 2019. These changes describe d most consistent with reactive etiology. There may also be precarinal lymphadenopathy. There are old right rib fractures. There are no osteoblastic or osteolytic lesions identified. IMPRESSION: 1. Moderate bilateral right greater than left pleural effusions unchanged. Progression in amount of adjacent basilar atelectasis. 2. Development of prevascular and possibly precarinal lymphadenopathy, most likely reactive. 3. Cardiomegaly. Pulmonary arterial hypertension. 4. Old right rib fractures. Reviewed, dictated and finalized at location B. MANAGER IMPRESSION: 1. Moderate bilateral right greater than left pleural effusions unchanged. Pro gression in amount of adjacent basilar atelectasis. 2. Development of prevascular and possibly precarinal lymphadenopathy, most li pankaj reactive. 3. Cardiomegaly. Pulmonary arterial hypertension. 4. Old right rib fractures.
--- NOTE | 2021-04-04 16:02 | ED.SOB ---
HPI - SOB/Dyspnea General Chief Complaint: Shortness of Breath/Dyspnea Stated Complaint: CHF/SOB Time Seen by Provider: 04/04/21 16:08 Source: patient and RN notes reviewed Mode of arrival: wheelchair Limitations: no limitations History of Present Illness MD elicited complaint: shortness of breath Pertinent past history: congestive heart failure and diabetes Onset (ago): day(s) (2) Context: elevated blood glucose Timing: constant Severity: moderate Exacerbating factors: exertion Relieving factors: nothing Known history of: congestive heart failure Associated symptoms: denies other symptoms Treatment prior to arrival: none Related Data Home Medications Medication Instructions Recorded Confirmed bupropion HCl 300 mg PO DAILY 03/30/20 04/04/21 escitalopram oxalate 20 mg PO DAILY 03/30/20 04/04/21 furosemide 40 mg PO DAILY 03/30/20 04/04/21 insulin lispro 30 unit SUBCUT TIDWMEAL 03/30/20 04/04/21 lisinopril 40 mg PO DAILY 03/30/20 04/04/21 rosuvastatin [Crestor] 20 mg PO DAILY 03/30/20 04/04/21 Lantus Solostar U-100 Insulin 40 unit SUBCUT HS 03/03/21 04/04/21 diltiazem HCl 480 mg PO DAILY 03/04/21 04/04/21 Allergies Allergy/AdvReac Type Severity Reaction Status Date / Time No Known Allergies Allergy Verified 03/03/21 18:33 Review of Systems Review of Systems: All systems reviewed & are unremarkable except as noted in HPI and below Constitutional: Constitutional: Denies chills and Denies fever(s) Cardiovascular: Cardiovascular: Denies chest pain Respiratory: Respiratory: Reports as per HPI Gastrointestinal: Gastrointestinal: Denies nausea and Denies vomiting [facility] Past Medical History Medical History (Updated 04/04/21 @ 18:53 by Gadiel Grajeda MD) Anxiety and depression Atrial flutter Congestive heart failure Hyperlipidemia Hypertension Type 2 diabetes mellitus Family History Family History Mother Breast cancer Diabetes mellitus Social History Social History Smoking packs per day: 1 Smoking cigarettes per day: 20.0 Years smoked: 25 Smoking pack-years: 25.00 Smoking status: Former smoker Tobacco type: cigarettes Second hand tobacco smoke exposure: No Smoking end date: 02/07/84 Alcohol intake: former Substance use: never Gender identity (if verbalized by the patient): Female Sexual Orientation (if Verbalized by the Patient): Straight or Heterosexual Spiritual care concerns: Yes (non yazidi) Course Course Emergency Course: I discussed the case with Meek Gray APN who agreed with admission. Patient also states she has not been taking her long-acting insulin because it drops her blood sugar too low. Her repeat troponin has decreased in the last 2 hours. she will be admitted for congestive heart failure and hyperglycemia Vital Signs Vital signs: Vital Signs Temperature 37.1 C 04/04/21 16:05 Pulse Rate 89 04/04/21 16:05 Respiratory Rate 20 04/04/21 16:05 Blood Pressure 173/77 H 04/04/21 16:05 Pulse Oximetry 92 04/04/21 16:05 Temperature 37.2 C 04/04/21 20:00 Pulse Rate 80 04/04/21 20:00 Respiratory Rate 18 04/04/21 20:00 Blood Pressure 152/72 H 04/04/21 20:00 Pulse Oximetry 96 04/04/21 20:00 MDM - SOB/Dyspnea Differential Diagnosis Differential diagnosis: Likely acute exacerbation of chronic obstructive airways disease and congestive heart failure Lab Data Attestation: I reviewed the patient's lab results. Result diagrams: 04/04/21 16:34 04/04/21 16:34 Labs: Lab Results 04/04/21 04/04/21 04/04/21 Range/Units 16:34 16:34 16:51 WBC 6.3 (4.8-10.8) K/mm3 RBC 4.48 (4.20-5.40) M/mm3 Hgb 13.2 (11.7-13.8) g/dL Hct 40.0 (35.0-42.0) % MCV 89.3 (78.0-102.0) fL MCH 29.5 (27.0-31.0) pg MCHC 33.0 (32.0-36.0) g/dL RDW 13.0 (11.6-14.4) % Plt C
--- NOTE | 2021-04-04 16:25 | ECG_ITS ---
Measurements Intervals [place] Rate: P: IN: QRS: QRSD: T: QT: QTc: Interpretive Statements SINUS OR ECTOPIC ATRIAL RHYTHM WITH FIRST DEGREE AV BLOCK RIGHT BUNDLE BRANCH BLOCK LEFT ANTERIOR FASCICULAR BLOCK BASELINE ARTIFACT- I, II, III, AVR, AVL, AVF, V1-V6 ABNORMAL ECG Electronically Signed On 04-05-2021 16:11:02 RN HEMO DIALYSIS by Idris Do D.O.
[2021-04-04 16:38] LABS: Basophils Absolute Auto 0.02 K/mm3 (0.00-0.10); Basophils Percent Auto 0.3 % (0.0-1.0); Eosinophils Absolute Auto 0.01 K/mm3 (0.02-0.50); Eosinophils Percent Auto 0.2 % (1.0-6.0); Hemoglobin 13.2 g/dL (11.7-13.8); Immature Granulocyte Absolute 0.04 K/mm3 (0.00-0.00); Immature Granulocyte Percent A 0.6 % (0.0-0.0); Lymphocytes Absolute Auto 0.65 K/mm3 (1.10-4.50); Lymphocytes Percent Auto 10.3 % (18.0-42.0); Mean Corpuscular Hemoglobin 29.5 pg (27.0-31.0); Mean Corpuscular Volume 89.3 fL (78.0-102.0); Mean Platelet Volume 10.3 fl (9.2-11.8); Monocytes Absolute Auto 0.44 K/mm3 (0.10-0.90); Neutrophils Absolute Auto 5.1 K/mm3 (1.7-7.2); Neutrophils Percent Auto 81.6 % (50.0-70.0); Platelet Count Result 278 K/mm3 (150-420); Red Blood Count 4.48 M/mm3 (4.20-5.40); White Blood Count 6.3 K/mm3 (4.8-10.8)
[2021-04-04 16:54] LABS: Appearance Urine Clear (Clear); Bilirubin Urine Negative (Negative); Color Urine Light Yellow (Yellow); Glucose Urine UA 3+ (Negative); Ketones Urine 1+ (Negative); Leukocyte Esterase Ur Negative LEU/UL (Negative); Nitrate Urine Negative (Negative); Protein Urine 2+ (Negative); Specific Grav Ur 1.015 (1.010-1.020); Urobilinogen Urine 0.2 mg/dL (0.2-1.0)
[2021-04-04 16:59] LABS: Add Urine Microscopic? YES; Bacteria Urine Trace /hpf; Blood Urine Trace-Intact (Negative); Squamous Epithelial Cell Urine Rare /hpf (Few); WBC Urine 0-3 /hpf (0-3)
[2021-04-04 17:00] LABS: Alanine Aminotransferase 14 U/L (14-59); Alkaline Phosphatase 119 U/L (46-116); Anion Gap 13 mmol/L (8-16); Aspartate Amino Transferase < 10 U/L (15-37); Bilirubin,Total 0.7 mg/dL (0.00-1.00); Blood Urea Nitrogen 10 mg/dL (7-18); Calcium 8.8 mg/dL (8.5-10.1); Carbon Dioxide 23 mmol/L (21-32); Chloride 100 mmol/L (98-108); Estimated CRCL calculation 37 ml/min; Estimated Glomerular Filt Rate 46; Magnesium 1.9 mg/dL (1.8-2.4); NT Pro B Type Natriuretic Pept 11165 pg/mL (0-450); Potassium 4.1 mmol/L (3.5-5.1); Sodium 136 mmol/L (136-145); Total Protein 7.4 g/dL (6.4-8.2)
[2021-04-04 17:02] LABS: Glucose > 500 mg/dL (70-99); Osmolality Calculated 303 mOsm/kg (285-295); Troponin I 101.1 ng/L (0.00-60.4)
[2021-04-04] MEDS: FUROSEMIDE INJ 40 MG/4 ML VIAL IV PUSH (18:24)
[2021-04-04] MEDS: INSULIN HUMAN REGULAR (*BKC) 100 UNITS/ML 7 UNITS IV PUSH (18:32)
[2021-04-04 18:43] LABS: Troponin I 92.4 ng/L (0.00-60.4)
--- NOTE | 2021-04-04 18:51 | PC.NURSE ---
pt to be admitted per mary hospitalist. awaiting for admission orders , report to tamir reeves rn. pt to go to room 204
[2021-04-04 19:26] LABS: Glucose Point of Care 351 mg/dl (65-105)
--- NOTE | 2021-04-04 19:26 | PC.NURSE ---
glucometer 351
--- NOTE | 2021-04-04 19:56 | ADMGEN ---
This patient, Teri Harrington, was admitted to 2nd Floor Room 204-1. Patient/family oriented to hospital policies and general routines including ID bracelet, bed and alarms, visiting hours, pain management, procedures, bathroom and other care routines, personal items, smoking policy, room service/diet, and visiting hours. Information on how to activate the Rapid Response Team has been discussed. Patient/Family are encouraged to report perceived risks to care and to ask questions if they do not understand what they are told or what they should do.
[2021-04-04] MEDS: INSULIN GLARGINE (*BKC) 100 UNITS/ML 40 UNITS SUB-Q (21:57)
[2021-04-04 22:06] LABS: Glucose Point of Care 233 mg/dl (65-105)
[2021-04-04 23:06] LABS: Troponin I 82.2 ng/L (0.00-60.4)
[2021-04-05] VITALS (7 sets, daily range): BP systolic 151–161; BP diastolic 60–69; PULSE 54–75; RESP 15–18; TEMP 36.7–36.9; O2SAT 91–92
--- NOTE | 2021-04-05 00:23 | PC.NURSE ---
Message left on Nahid Gray's voice mail regarding troponin results and oxygen.
--- NOTE | 2021-04-05 00:38 | PC.NURSE ---
Meek Gray JEWELRY BENCH WORKER returned call and is putting an order in for oxygen and says she is aware of Troponin level.
[2021-04-05 05:48] LABS: Hemoglobin 11.3 g/dL (11.7-13.8); Mean Corpuscular HGB Conc 31.4 g/dL (32.0-36.0); Mean Corpuscular Hemoglobin 29.4 pg (27.0-31.0); Mean Corpuscular Volume 93.8 fL (78.0-102.0); Mean Platelet Volume 10.6 fl (9.2-11.8); Platelet Count Result 275 K/mm3 (150-420); Red Blood Count 3.84 M/mm3 (4.20-5.40); Red Cell Distribution Width 13.2 % (11.6-14.4); White Blood Count 5.3 K/mm3 (4.8-10.8)
[2021-04-05 06:17] LABS: Alanine Aminotransferase 12 U/L (14-59); Albumin Level 2.6 g/dL (3.4-5.0); Alkaline Phosphatase 90 U/L (46-116); Anion Gap 10 mmol/L (8-16); Aspartate Amino Transferase < 10 U/L (15-37); Bilirubin,Total 0.4 mg/dL (0.00-1.00); Blood Urea Nitrogen 11 mg/dL (7-18); Calcium 8.5 mg/dL (8.5-10.1); Carbon Dioxide 28 mmol/L (21-32); Chloride 106 mmol/L (98-108); Estimated CRCL calculation 48 ml/min; Estimated Glomerular Filt Rate 55; Glucose 157 mg/dL (70-99); Magnesium 2.1 mg/dL (1.8-2.4); Osmolality Calculated 300 mOsm/kg (285-295); Potassium 3.3 mmol/L (3.5-5.1); Sodium 144 mmol/L (136-145); Total Protein 6.4 g/dL (6.4-8.2)
[2021-04-05 06:18] LABS: NT Pro B Type Natriuretic Pept 9096 pg/mL (0-450)
[2021-04-05 06:21] LABS: Troponin I 80.1 ng/L (0.00-60.4)
[2021-04-05 07:48] LABS: Glucose Point of Care 95 mg/dl (65-105)
[2021-04-05] MEDS: POTASSIUM CHLORIDE 20 MEQ TABLET 40 MEQ PO (08:35)
[2021-04-05] MEDS: lisinopriL 20 MG TABLET 40 MG PO (08:37)
[2021-04-05] MEDS: buPROPion HCL XL (24 HR) 150 MG TABCR 300 MG PO (08:38)
[2021-04-05] MEDS: ROSUVASTATIN 10 MG TABLET 20 MG PO (08:38)
[2021-04-05] MEDS: ESCITALOPRAM OXALATE 10 MG TABLET 20 MG PO (08:39)
[2021-04-05] MEDS: FUROSEMIDE INJ 40 MG/4 ML VIAL IV PUSH (08:40)
[2021-04-05] MEDS: ENOXAPARIN 40 MG/0.4 ML SYRINGE SUB-Q (08:40)
--- NOTE | 2021-04-05 09:15 | PM.SD2 ---
Same Day Admit/Disch: HPI History of Present Illness Chief complaint: CHF Exacerbation/hyperglycemia Narrative: Teri Harrington is a 75 year old female that presented to emergency department with complaints of shortness of breath. Patient has a past medical history of anxiety and depression, APL, congestive heart failure, HLD, hypertension and type 2 diabetes. Patient is well-known to our establishment have been admitted in the past due to noncompliance. Patient notes that she has not taken her diabetes medication she did note that she has been taking her water pills . Her signs 161/69, 84, 18, 98.5, 92% on 0.5 L. Patient sats 94% on room air. Patient placed on 0.5 L overnight due to sats in the upper 80s patient does use a CPAP at night at home and is noncompliant. Sodium 136 potassium 4.1, BUN 18, creatinine 0.14, glucose 500, magnesium 1.9, AST and ALT within normal limits troponin I 01.1 BUN 54481, WBCs 3.5, hemoglobin 11.3, hematocrit 36.0, platelets 275 UA positive for protein glucose ketones, bacteria and blood D-dimer 2.82, chest x-ray mild pulmonary edema with small pleural effusion, CTA no PE noted . Patient received 80 units of Lasix her Lasix will be increased to 40 twice daily instead of daily. Patient will discharge home today, she has no complaints. She notes her condition has improved since admission the patient denies SOB, CP, palpitation, extremity numbness, lightheadedness, dizziness, constipation, diarrhea, chills, or fever. [facility] Past Medical History Medical History (Updated 04/05/21 @ 09:31 by TOM Klein) Anxiety and depression Atrial flutter Congestive heart failure Hyperlipidemia Hypertension Type 2 diabetes mellitus Family History Family History Mother Breast cancer Diabetes mellitus Social History Social History Smoking packs per day: 1 Smoking cigarettes per day: 20.0 Years smoked: 25 Smoking pack-years: 25.00 Smoking status: Former smoker Tobacco type: cigarettes Second hand tobacco smoke exposure: No Smoking end date: 02/07/84 Alcohol intake: former Substance use: never Gender identity (if verbalized by the patient): Female Sexual Orientation (if Verbalized by the Patient): Straight or Heterosexual Spiritual care concerns: Yes (non worship) Same Day Admit/Disch: Med Pre-admit Medications Home Medications Medication Instructions Recorded Confirmed Type bupropion HCl 300 mg PO DAILY 03/30/20 04/04/21 History escitalopram oxalate 20 mg PO DAILY 03/30/20 04/04/21 History insulin lispro 30 unit SUBCUT TIDWMEAL 03/30/20 04/04/21 History lisinopril 40 mg PO DAILY 03/30/20 04/04/21 History rosuvastatin [Crestor] 20 mg PO DAILY 03/30/20 04/04/21 History Lantus Solostar U-100 Insulin 40 unit SUBCUT HS 03/03/21 04/04/21 History diltiazem HCl 480 mg PO DAILY 03/04/21 04/04/21 History furosemide 40 mg PO BIDWM #30 tablet 04/05/21 04/04/21 Rx potassium chloride [K-Tab] 40 meq PO DAILY@0800 #30 tablet 04/05/21 Rx Exam Narrative: GENERAL: This is a well-nourished, well-developed patient, in no apparent distress. HEAD: normocephalic, atraumatic. EYES: PERRL. Sclera clear/white. Vision is grossly intact. EARS: External ears normal, auditory canals clear and without drainage, TMs normal without perforation. Hearing grossly intact. NOSE: External nose normal with no obvious nasal discharge, nares without redness, no rhinorrhea. THROAT: Mucous membranes moist, posterior pharynx clear. NECK: Neck supple, non-tender without lymphadenopathy, masses or thyromegaly. CARDIOVASCULAR: Regular rate and rhythm without murmurs, gallops, or rubs. RESPIRATORY: Clear to auscultation. Breath sounds equal bilaterally. No wheezes, rales, or rhonchi. GASTROINTESTINAL: Abdomen soft, non-tender, nondistended. Bowel sounds are active. No hepato-splenomegaly, or palpable manoj
--- NOTE | 2021-04-05 11:30 | PC.NURSE ---
Patient discharged to home via public transportation. Nurse assist off [facility] via w/c. Discharge instructions given to patient. Patient voiced understanding. Personal belongings sent home with patient.
--- NOTE | 2021-04-10 11:30 | PC.NURSE ---
Multiple attempts to make discharge call back with no answer.
== END 2021-04-05 11:30 | disposition home or self-care (01) ==
LOC: CHSED 19:23 → CHS2ND 04-05 06:29
PROVIDERS: Nurse Practitioner; Admitting Provider Internal Medicine; Emergency Provider Emergency Medicine; PCP Internal Medicine; Visit Provider Internal Medicine
DX: I11.0 Hypertensive heart disease with heart failure (principal); I50.23 Acute on chronic systolic (congestive) heart failure; I48.92 Unspecified atrial flutter; E87.6 Hypokalemia; E11.65 Type 2 diabetes mellitus with hyperglycemia; E78.5 Hyperlipidemia, unspecified; F41.9 Anxiety disorder, unspecified; F32.A Depression, unspecified; Z79.4 Long term (current) use of insulin; Z87.891 Personal history of nicotine dependence
CPT/HCPCS: 36415; 71046; 71275; 80053; 81001; 82948; 83735; 83880; 84484; 85025; 85027; 87040; 93005; 94660; 96365; 96372; 96374; 96375; 96376; 99285; A9270; G0378; J0696; J1650; J1815; J1940; Q9967

== ENCOUNTER 2021-11-05 15:30 | Inpatient (IN) | payer MEDICARE, SELFPAY ==
[2021-11-05] VITALS (7 sets, daily range): BP systolic 171–186; BP diastolic 73–93; PULSE 74–89; RESP 18–20; TEMP 36.2–36.6; O2SAT 93–97; BMI 28.0
--- NOTE | 2021-11-05 15:56 | ECG_ITS ---
Measurements Intervals [place] Rate: 86 P: ME: 0 QRS: -65 QRSD: 133 T: 39 QT: 394 QTc: 472 Interpretive Statements ATRIAL FLUTTER/TACHYCARDIA LEFT AXIS DEVIATION RIGHT BUNDLE BRANCH BLOCK BASELINE ARTIFACT- I, II, AVR, AVL, AVF, V3-V4 ABNORMAL ECG NO PREVIOUS ECG AVAILABLE FOR COMPARISON Electronically Signed On 11-05-2021 16:49:24 CDT by Idris Do D.O.
--- NOTE | 2021-11-05 15:57 | ED.GENADULT ---
HPI - General Adult General Chief complaint: Unspecified Stated complaint: high blood pressure Time Seen by Provider: 11/05/21 15:49 History of Present Illness HPI narrative: Teri is a 76F with a PMH of DMII, HTN, HLD, CHF, and atrial flutter presented to the emergency department with concerns of high BP. It was over 200 at home. Despite this she denies any chest pain, confusion, headache, or oliguria. She took her last pill of diltiazem before coming in. Related Data Home Medications Medication Instructions Recorded Confirmed bupropion HCl 300 mg 24 hr tablet, 300 mg PO DAILY 03/30/20 11/05/21 extended release escitalopram oxalate 20 mg tablet 20 mg PO DAILY 03/30/20 11/05/21 insulin lispro 100 unit/mL 30 unit subcut TIDWMEAL 03/30/20 11/05/21 subcutaneous pen lisinopril 20 mg tablet 40 mg PO DAILY 03/30/20 11/05/21 rosuvastatin 20 mg tablet (Crestor) 20 mg PO DAILY 03/30/20 11/05/21 insulin glargine 100 unit/mL (3 40 unit subcut HS 03/03/21 11/05/21 mL) subcutaneous pen (Lantus Solostar U-100 Insulin) diltiazem HCl 240 mg capsule,24 480 mg PO DAILY 03/04/21 11/05/21 hr,extended release Allergies Allergy/AdvReac Type Severity Reaction Status Date / Time alendronate sodium AdvReac Abdominal Verified 11/05/21 18:31 [From Fosamax] Pain Review of Systems Review of Systems: All systems reviewed & are unremarkable except as noted in HPI and below PMFSH Past Medical History Medical History Anxiety and depression Atrial flutter Congestive heart failure Hyperlipidemia Hypertension Type 2 diabetes mellitus Family History Family History Mother Breast cancer Diabetes mellitus Social History Social History Smoking packs per day: 1 Smoking cigarettes per day: 20.0 Years smoked: 27 Smoking pack-years: 27.00 Smoking status: Former smoker Tobacco type: cigarettes Second hand tobacco smoke exposure: No Smoking end date: 02/07/84 Alcohol intake: never Substance use: never Gender identity (if verbalized by the patient): Female Sexual Orientation (if Verbalized by the Patient): Straight or Heterosexual Spiritual care concerns: No Exam Const: General: cooperative, healthy appearing, comfortable and no acute distress Nutritional Appearance: average body habitus Orientation/consciousness: oriented to person, oriented to place and oriented to time HENMT: Head: normal to inspection Ears: hearing grossly normal bilaterally Eyes: General: appearance normal, both eyes and all related structures Periorbital: periorbital findings normal Neck: Neck: normal visual inspection Chest: Chest palpation & inspection: normal inspection of the chest Resp: Effort & Inspection: normal respiratory effort and able to speak in complete sentences Auscultation: clear to auscultation bilaterally Cardio: Jugular venous distension: no JVD Rate: regular rate Rhythm: regular rhythm Skin: General skin exam: normal color and no rashes or lesions noted Neuro: General: oriented to person, oriented to place and oriented to time Cranial nerves: Yes CN's II-XII intact bilaterally Extrem: Other: no deformity Psych: Appearance: grossly normal and well kempt Course Course Emergency Course: Ordered labs and EKG as well as a dose of metoprolol EKG showed atrial flutter with a rate of 86, LAD Sugar was found to be over 400. Given her elevated BP, hyperglycemia and complex history she was admitted for further care. Smith accepted the admission Vital Signs Vital signs: Vital Signs Temperature 97.2 F L 11/05/21 15:32 Pulse Rate 89 11/05/21 15:32 Respiratory Rate 18 11/05/21 15:32 Blood Pressure 171/73 H 11/05/21 15:32 Pulse Oximetry 95 11/05/21 15:32 Oxygen Delivery Room Air 11/05/21 15:32 Tempera
[2021-11-05] MEDS: METOPROLOL TARTRATE 50 MG TAB PO (16:31)
[2021-11-05 16:44] LABS: Alanine Aminotransferase 11 U/L (14-59); Albumin Level 2.7 g/dL (3.4-5.0); Alkaline Phosphatase 143 U/L (46-116); Anion Gap 8 mmol/L (8-16); Aspartate Amino Transferase 11 U/L (15-37); Bilirubin,Total 0.5 mg/dL (0.00-1.00); Blood Urea Nitrogen 10 mg/dL (7-18); Calcium 8.6 mg/dL (8.5-10.1); Carbon Dioxide 27 mmol/L (21-32); Chloride 101 mmol/L (98-108); Estimated CRCL calculation 41 ml/min; Estimated Glomerular Filt Rate 50; NT Pro B Type Natriuretic Pept 3554 pg/mL (0-450); Osmolality Calculated 303 mOsm/kg (285-295); Potassium 3.9 mmol/L (3.5-5.1); Sodium 136 mmol/L (136-145); Total Protein 6.9 g/dL (6.4-8.2); Troponin I 39.8 ng/L (0.00-60.4)
[2021-11-05 16:47] LABS: Glucose 496 mg/dL (70-99)
[2021-11-05] MEDS: INSULIN HUMAN REGULAR (*BKC) 100 UNITS/ML 10 UNITS IV PUSH (17:25)
[2021-11-05 17:30] LABS: Basophils Absolute Auto 0.02 K/mm3 (0.00-0.10); Basophils Percent Auto 0.2 % (0.0-1.0); Eosinophils Absolute Auto 0.08 K/mm3 (0.02-0.50); Hematocrit 40.5 % (35.0-42.0); Hemoglobin 13.6 g/dL (11.7-13.8); Immature Granulocyte Absolute 0.04 K/mm3 (0.00-0.00); Immature Granulocyte Percent A 0.5 % (0.0-0.0); Lymphocytes Absolute Auto 0.83 K/mm3 (1.10-4.50); Mean Corpuscular HGB Conc 33.6 g/dL (32.0-36.0); Mean Corpuscular Hemoglobin 29.3 pg (27.0-31.0); Mean Corpuscular Volume 87.3 fL (78.0-102.0); Mean Platelet Volume 12.3 fl (9.2-11.8); Neutrophils Absolute Auto 6.9 K/mm3 (1.7-7.2); Neutrophils Percent Auto 82.3 % (50.0-70.0); Platelet Count Result 189 K/mm3 (150-420); Red Blood Count 4.64 M/mm3 (4.20-5.40); Red Cell Distribution Width 12.9 % (11.6-14.4); White Blood Count 8.3 K/mm3 (4.8-10.8)
[2021-11-05 17:39] LABS: Acetone Negative (Negative)
--- NOTE | 2021-11-05 20:35 | ADMGEN ---
This patient, Teri Harrington, was admitted to 2nd Floor Room 209-1. Patient oriented to hospital policies and general routines including ID bracelet, bed and alarms, visiting hours, pain management, procedures, bathroom and other care routines, personal items, smoking policy, room service/diet, and visiting hours. Information on how to activate the Rapid Response Team has been discussed. Patient are encouraged to report perceived risks to care and to ask questions if they do not understand what they are told or what they should do.
[2021-11-05] MEDS: HEPARIN SODIUM 5,000 UNITS/ML VIAL 5000 UNITS SUB-Q (21:01)
[2021-11-05] MEDS: INSULIN GLARGINE (*BKC) 100 UNITS/ML 40 UNITS SUB-Q (21:02)
[2021-11-05 21:03] LABS: Glucose Point of Care 320 mg/dl (65-105)
[2021-11-05 23:47] LABS: Glucose Point of Care 318 mg/dl (65-105)
[2021-11-06] VITALS (7 sets, daily range): BP systolic 159–179; BP diastolic 77–91; PULSE 67–91; RESP 16–18; TEMP 36.4–36.7; O2SAT 92–98
[2021-11-06 00:58] LABS: Appearance Urine Clear (Clear); Bilirubin Urine Negative (Negative); Glucose Urine UA 3+ (Negative); Ketones Urine Trace (Negative); Leukocyte Esterase Ur Negative LEU/UL (Negative); Nitrate Urine Negative (Negative); Protein Urine 3+ (Negative); Urobilinogen Urine 0.2 mg/dL (0.2-1.0)
[2021-11-06 01:10] LABS: Add Urine Microscopic? YES; Bacteria Urine None seen /hpf; Blood Urine Trace-Intact (Negative); Color Urine Light Yellow (Yellow); RBC Urine 0-2 /hpf (0-2); Squamous Epithelial Cell Urine Occasional /hpf (Few); WBC Urine 0-3 /hpf (0-3)
[2021-11-06 06:01] LABS: Hematocrit 39.8 % (35.0-42.0); Hemoglobin 13.3 g/dL (11.7-13.8); Mean Corpuscular HGB Conc 33.4 g/dL (32.0-36.0); Mean Corpuscular Hemoglobin 29.2 pg (27.0-31.0); Mean Corpuscular Volume 87.3 fL (78.0-102.0); Mean Platelet Volume 10.1 fl (9.2-11.8); Platelet Count Result 303 K/mm3 (150-420); Red Blood Count 4.56 M/mm3 (4.20-5.40); Red Cell Distribution Width 12.8 % (11.6-14.4); White Blood Count 7.4 K/mm3 (4.8-10.8)
[2021-11-06 06:10] LABS: Anion Gap 6 mmol/L (8-16); Blood Urea Nitrogen 7 mg/dL (7-18); Calcium 8.8 mg/dL (8.5-10.1); Carbon Dioxide 32 mmol/L (21-32); Chloride 106 mmol/L (98-108); Estimated CRCL calculation 46 ml/min; Estimated Glomerular Filt Rate 60; Glucose 72 mg/dL (70-99); Osmolality Calculated 295 mOsm/kg (285-295); Potassium 3.1 mmol/L (3.5-5.1); Sodium 144 mmol/L (136-145)
[2021-11-06 07:39] LABS: Glucose Point of Care 145 mg/dl (65-105)
[2021-11-06 07:47] LABS: Glucose Point of Care 102 mg/dl (65-105)
[2021-11-06] MEDS: buPROPion HCL XL (24 HR) 150 MG TABCR 300 MG PO (08:33)
[2021-11-06] MEDS: ESCITALOPRAM OXALATE 10 MG TABLET 20 MG PO (08:34)
[2021-11-06] MEDS: FUROSEMIDE 40 MG TABLET PO ×2 (08:35→16:50)
[2021-11-06] MEDS: lisinopriL 20 MG TABLET 40 MG PO (08:36)
[2021-11-06] MEDS: ROSUVASTATIN 10 MG TABLET 20 MG PO (08:36)
[2021-11-06] MEDS: HEPARIN SODIUM 5,000 UNITS/ML VIAL 5000 UNITS SUB-Q ×2 (08:38→20:37)
--- NOTE | 2021-11-06 09:51 | PM.IMHP ---
H&P: HPI History of Present Illness Date/Time: 11/06/21 09:51 Chief Complaint: This is a 78-year-old female that presented to the emergency room with a past medical history of f DMII, HTN, HLD, CHF, and atrial flutter and she was complaining that her blood pressure was high. Patient's blood pressure at home according to patient was above 200 states that she took extra blood pressure pill that did not help. Patient blood sugar was extremely high she states that she ran out of blood sugar medication and her primary care doctor is on vacation. Patient informs me that she felt like she has some pressure on her chest but believes when she came in but they told her everything was okay. Patient states she can breathe okay denies any shortness of breath no nausea vomiting no chest pain no headaches and she is able to urinate without any difficulty. Patient states that her legs swell but lately all she has been doing is sleeping as she has been upset due to her son October 09. Patient states that sometimes she just sleep sleep sleep and then she will go several days without being able to sleep she acknowledges that she may be depressed and is willing to take something for depression patient denies any suicidal or homicidal ideations. Patient blood pressure remains high 175/84 heart rate is 80 pulse is 18 temp is 98 5 pulse ox is 94% on room air she has trace edema bilateral legs. 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 Potassium for patient is 3.1, sodium is 144, BUN is 7, creatinine 0.91, WBCs are 7.4, hemoglobin 13.3, platelets of 303. Review of Systems Review of Systems: chest pain , shortness of breath high blood pressure All systems reviewed & are unremarkable except as noted in HPI and below [facility] Past Medical History Medical History Anxiety and depression Atrial flutter Congestive heart failure Hyperlipidemia Hypertension Type 2 diabetes mellitus Family History Family History Mother Breast cancer Diabetes mellitus Social History Social History Smoking packs per day: 1 Smoking cigarettes per day: 20.0 Years smoked: 27 Smoking pack-years: 27.00 Smoking status: Former smoker Tobacco type: cigarettes Second hand tobacco smoke exposure: No Smoking end date: 02/07/84 Alcohol intake: never Substance use: never Gender identity (if verbalized by the patient): Female Sexual Orientation (if Verbalized by the Patient): Straight or Heterosexual Spiritual care concerns: No Comments With history at time as signature, I have reviewed and agree with nursing past medical, social, surgical and family history. Please see nursing chart for further information. There is no relevant family history pertinent to the presenting complaint. Meds Home Medications and Allergies Home Medications Medication Instructions Recorded Confirmed Type bupropion HCl 300 mg 24 hr tablet, 300 mg PO DAILY 03/30/20 11/05/21 History extended release escitalopram oxalate 20 mg tablet 20 mg PO DAILY 03/30/20 11/05/21 History insulin lispro 100 unit/mL 30 unit subcut TIDWMEAL 03/30/20 11/05/21 History subcutaneous pen lisinopril 20 mg tablet 40 mg PO DAILY 03/30/20 11/05/21 History rosuvastatin 20 mg tablet (Crestor) 20 mg PO DAILY 03/30/20 11/05/21 History insulin glargine 100 unit/mL (3 40 unit subcut HS 03/03/21 11/05/21 History mL) subcutaneous pen (Lantus Solostar U-100 Insulin) diltiazem HCl 240 mg capsule,24 480 mg PO DAILY 03/04/21 11/05/21 History hr,extended release furosemide 40 mg tablet 40 mg PO BIDWM #30 tabs 04/05/21 11/05/21 Rx potassium chloride 20 mEq 40 meq PO DAILY@0800 #30 tabs 04/05/21 11/05/21 Rx tablet,extended release (K-Tab) Allergies Allergy/AdvReac Type Severity Reaction Status Da
[2021-11-06] MEDS: POTASSIUM CHLORIDE 20 MEQ PACKET (FOR LIQUID) 40 MEQ BY MOUTH (10:50)
[2021-11-06] MEDS: ESCITALOPRAM OXALATE 5 MG TABLET PO (10:50)
[2021-11-06 11:22] LABS: Glucose Point of Care 254 mg/dl (65-105)
[2021-11-06 20:31] LABS: Glucose Point of Care 205 mg/dl (65-105)
[2021-11-06] MEDS: ACETAMINOPHEN 325 MG TABLET 650 MG PO (20:35)
[2021-11-06] MEDS: INSULIN GLARGINE (*BKC) 100 UNITS/ML 40 UNITS SUB-Q (20:37)
[2021-11-06 20:40] LABS: Glucose Point of Care 225 mg/dl (65-105)
[2021-11-07] VITALS: BP 171/83; PULSE 59; RESP 16; TEMP 36.8; O2SAT 95
[2021-11-07 04:00] VITALS: PULSE 57
[2021-11-07 05:13] LABS: Hematocrit 40.9 % (35.0-42.0); Hemoglobin 13.8 g/dL (11.7-13.8); Mean Corpuscular HGB Conc 33.7 g/dL (32.0-36.0); Mean Corpuscular Hemoglobin 29.4 pg (27.0-31.0); Mean Corpuscular Volume 87.2 fL (78.0-102.0); Mean Platelet Volume 10.7 fl (9.2-11.8); Platelet Count Result 298 K/mm3 (150-420); Red Blood Count 4.69 M/mm3 (4.20-5.40); Red Cell Distribution Width 12.8 % (11.6-14.4); White Blood Count 6.6 K/mm3 (4.8-10.8)
[2021-11-07 05:42] LABS: Anion Gap 7 mmol/L (8-16); Blood Urea Nitrogen 10 mg/dL (7-18); Calcium 8.5 mg/dL (8.5-10.1); Carbon Dioxide 30 mmol/L (21-32); Chloride 106 mmol/L (98-108); Estimated CRCL calculation 45 ml/min; Estimated Glomerular Filt Rate 57; Glucose 60 mg/dL (70-99); Osmolality Calculated 293 mOsm/kg (285-295); Potassium 2.9 mmol/L (3.5-5.1); Sodium 143 mmol/L (136-145)
[2021-11-07 07:58] LABS: Glucose Point of Care 85 mg/dl (65-105)
[2021-11-07 08:00] VITALS: BP 176/71; PULSE 85; RESP 14; TEMP 36.3; O2SAT 98
[2021-11-07] MEDS: FUROSEMIDE 40 MG TABLET PO (08:59)
[2021-11-07] MEDS: POTASSIUM CHLORIDE 20 MEQ PACKET (FOR LIQUID) BY MOUTH ×2 (08:59→16:24)
[2021-11-07] MEDS: ROSUVASTATIN 10 MG TABLET 20 MG PO (09:00)
[2021-11-07] MEDS: ESCITALOPRAM OXALATE 10 MG TABLET 20 MG PO (09:00)
[2021-11-07] MEDS: lisinopriL 20 MG TABLET 40 MG PO (09:00)
[2021-11-07] MEDS: buPROPion HCL XL (24 HR) 150 MG TABCR 300 MG PO (09:01)
[2021-11-07] MEDS: HEPARIN SODIUM 5,000 UNITS/ML VIAL 5000 UNITS SUB-Q ×2 (09:05→21:02)
--- NOTE | 2021-11-07 10:07 | P.PNIM_ITS ---
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: with senior living use Qualified Code(s): E11.9 - Type 2 diabetes mellitus without complications; Z79.4 - long term care social worker (current) use of insulin Code(s): E11.9 - Type 2 diabetes mellitus without complications Status: Acute Assessment and Plan: * Accu check achs * Sliding Scale * hold oral antiglycemic * Glucose 6 Morning (3) Hyperlipidemia: Qualifiers: Hyperlipidemia type: unspecified Qualified Code(s): E78.5 - Hyperlipidemia, unspecified Code(s): E78.5 - Hyperlipidemia, unspecified Status: Acute Assessment and Plan: * continue home medication stable (4) CHF (congestive heart failure): Qualifiers: Heart failure chronicity: acute on chronic Heart failure type: unspecified Qualified Code(s): I50.9 - Heart failure, unspecified Code(s): I50.9 - Heart failure, unspecified Status: Acute Assessment and Plan: * BNP 3554 * lasix (5) Anxiety and depression: Code(s): F41.9 - Anxiety disorder, unspecified; F32.9 - Major depressive disorder, single episode, unspecified Status: Acute Assessment and Plan: * Will order antidepressant * monitor pt to discuss with pcp on depression as son Oct 09 (6) Atrial flutter: Qualifiers: Atrial flutter type: unspecified Qualified Code(s): I48.92 - Unspecified atrial flutter Code(s): I48.92 - Unspecified atrial flutter Status: Acute Assessment and Plan: * Beta Block * on anticoagulation * on Telemetry (7) UTI (urinary tract infection): Code(s): N39.0 - Urinary tract infection, site not specified Status: Acute Assessment and Plan: * IV antibiotics * increase fluids * avoid caffeine (8) Hypokalemia: Code(s): E87.6 - Hypokalemia Status: Acute Assessment and Plan: * Potassium 2.9 * Decrease Lasix to 40 mg daily * Increase potassium to 20 mEq twice daily * Will reevaluate in the morning Subjective Date/time seen: 11/07/21 10:07 Interval history: Blood Pressure still remains high I have added Selena to her today potassium slightly low decrease Lasix increase potassium. Patient states she is very tired patient is bradycardic we will continue to monitor to see if we can address his blood pressure. Patient states she is feeling better than she has been. Patient is sitting in recliner chair she is very pale hemoglobin is normal patient is on room air we will continue to monitor Review of Systems Review of Systems: Hypokalemia, Hypertensive, Bradycardia All systems reviewed & are unremarkable except as noted in HPI and below Exam Narrative: HEAD:Normocephalic, atraumatic. EYES: PERRLA and EOMI. ENT: Nares clear, no rhinorrhea or epistaxis. Mucous membranes moist. NECK: Supple. CHEST: Clear to auscultation. No respiratory distress. HEART: Irregular rate and rhythm.. Normal peripheral pulses. ABDOMEN: Soft, nontender, nondistended, norm
--- NOTE | 2021-11-07 10:07 | PM.IMPN ---
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 Qualified Code(s): E11.9 - Type 2 diabetes mellitus without complications; Z79.4 - [facility]P (current) use of insulin Code(s): E11.9 - Type 2 diabetes mellitus without complications Status: Acute Assessment and Plan: Accu check achs Sliding Scale hold oral antiglycemic Glucose 6 Morning (3) Hyperlipidemia: Qualifiers: Hyperlipidemia type: unspecified Qualified Code(s): E78.5 - Hyperlipidemia, unspecified Code(s): E78.5 - Hyperlipidemia, unspecified Status: Acute Assessment and Plan: continue home medication stable (4) CHF (congestive heart failure): Qualifiers: Heart failure chronicity: acute on chronic Heart failure type: unspecified Qualified Code(s): I50.9 - Heart failure, unspecified Code(s): I50.9 - Heart failure, unspecified Status: Acute Assessment and Plan: BNP 3554 lasix (5) Anxiety and depression: Code(s): F41.9 - Anxiety disorder, unspecified; F32.9 - Major depressive disorder, single episode, unspecified Status: Acute Assessment and Plan: Will order antidepressant monitor pt to discuss with pcp on depression as son Oct 09 (6) Atrial flutter: Qualifiers: Atrial flutter type: unspecified Qualified Code(s): I48.92 - Unspecified atrial flutter Code(s): I48.92 - Unspecified atrial flutter Status: Acute Assessment and Plan: Beta Block on anticoagulation on Telemetry (7) UTI (urinary tract infection): Code(s): N39.0 - Urinary tract infection, site not specified Status: Acute Assessment and Plan: IV antibiotics increase fluids avoid caffeine (8) Hypokalemia: Code(s): E87.6 - Hypokalemia Status: Acute Assessment and Plan: Potassium 2.9 Decrease Lasix to 40 mg daily Increase potassium to 20 mEq twice daily Will reevaluate in the morning Subjective Date/time seen: 11/07/21 10:07 Interval history: Blood Pressure still remains high I have added Norvasc to her today potassium slightly low decrease Lasix increase potassium. Patient states she is very tired patient is bradycardic we will continue to monitor to see if we can address his blood pressure. Patient states she is feeling better than she has been. Patient is sitting in recliner chair she is very pale hemoglobin is normal patient is on room air we will continue to monitor Review of Systems Review of Systems: Hypokalemia, Hypertensive, Bradycardia All systems reviewed & are unremarkable except as noted in HPI and below Exam Narrative: HEAD:Normocephalic, atraumatic. EYES: PERRLA and EOMI. ENT: Nares clear, no rhinorrhea or epistaxis. Mucous membranes moist. NECK: Supple. CHEST: Clear to auscultation. No respiratory distress. HEART: Irregular rate and rhythm.. Normal peripheral pulses. ABDOMEN: Soft, nontender, nondistended, normal active bowel sounds. EXTREMITIES: Normal range of motion. trace edema to bilateral legs . SKIN: Warm, dry, no rash. Patient is very Pale NEURO: No focal deficits. Alert and oriented x3. Objective Data Vital Signs Vital Signs: Vital Signs - 24 hr 11/06/21 11:44 11/06/21 12:00 11/06/21 16:00 Temperature 98 F 97.6 F Pulse Rate 82 79 75 Respiratory Rate 16 Blood Pressure 166/91 H 159/77 H Pulse Oximetry 95 98 Oxygen Delivery Room Air Room Air 11/06/21
[2021-11-07] MEDS: amLODIPine BESYLATE 5 MG TABLET PO (10:26)
[2021-11-07] MEDS: TOLNAFTATE 1% POWDER 45 GM BTL 1 APPLIC TOPICAL ×2 (10:27→21:07)
[2021-11-07 11:49] LABS: Glucose Point of Care 163 mg/dl (65-105)
[2021-11-07 16:00] VITALS: BP 162/82; PULSE 80; RESP 95; TEMP 36.6
[2021-11-07 16:35] LABS: Glucose Point of Care 179 mg/dl (65-105)
[2021-11-07 20:00] VITALS: PULSE 80; O2SAT 98
[2021-11-07] MEDS: INSULIN GLARGINE (*BKC) 100 UNITS/ML 20 UNITS SUB-Q (21:04)
[2021-11-07 21:05] LABS: Glucose Point of Care 211 mg/dl (65-105)
[2021-11-07] MEDS: ACETAMINOPHEN 325 MG TABLET 650 MG PO (21:07)
[2021-11-08] VITALS: BP 141/67; PULSE 64; RESP 16; TEMP 36.7; O2SAT 96
--- NOTE | 2021-11-08 00:15 | PC.NURSE ---
Pt requesting snack, ham sandwich, sherbert and diet soda given per request.
[2021-11-08 07:29] LABS: Glucose Point of Care 55 mg/dl (65-105)
--- NOTE | 2021-11-08 07:47 | PC.NURSE ---
patient blood glucose is 55. Patient is asymptomatic-no dizziness or weakness. Provided juice and breakfast.
[2021-11-08 07:51] VITALS: BP 183/76; PULSE 85; RESP 16; TEMP 36.4; O2SAT 96
[2021-11-08] MEDS: TOLNAFTATE 1% POWDER 45 GM BTL 1 APPLIC TOPICAL ×2 (08:40→20:37)
[2021-11-08] MEDS: ROSUVASTATIN 10 MG TABLET 20 MG PO (08:41)
[2021-11-08] MEDS: ESCITALOPRAM OXALATE 10 MG TABLET 20 MG PO (08:42)
[2021-11-08] MEDS: buPROPion HCL XL (24 HR) 150 MG TABCR 300 MG PO (08:42)
[2021-11-08] MEDS: lisinopriL 20 MG TABLET 40 MG PO (08:42)
[2021-11-08] MEDS: FUROSEMIDE 40 MG TABLET PO (08:43)
[2021-11-08] MEDS: POTASSIUM CHLORIDE 20 MEQ PACKET (FOR LIQUID) BY MOUTH ×2 (08:43→16:49)
[2021-11-08] MEDS: HEPARIN SODIUM 5,000 UNITS/ML VIAL 5000 UNITS SUB-Q ×2 (08:43→20:33)
[2021-11-08] MEDS: amLODIPine BESYLATE 5 MG TABLET PO (08:50)
[2021-11-08 09:19] LABS: Hematocrit 38.7 % (35.0-42.0); Hemoglobin 12.8 g/dL (11.7-13.8); Mean Corpuscular HGB Conc 33.1 g/dL (32.0-36.0); Mean Corpuscular Hemoglobin 29.6 pg (27.0-31.0); Mean Corpuscular Volume 89.4 fL (78.0-102.0); Mean Platelet Volume 10.1 fl (9.2-11.8); Platelet Count Result 276 K/mm3 (150-420); Red Blood Count 4.33 M/mm3 (4.20-5.40); White Blood Count 5.1 K/mm3 (4.8-10.8)
--- NOTE | 2021-11-08 09:21 | P.PN_ITS ---
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 Qualified Code(s): E11.9 - Type 2 diabetes mellitus without complications; Z79.4 - correction (current) use of insulin Code(s): E11.9 - Type 2 diabetes mellitus without complications Status: Acute Assessment and Plan: * Accu check achs * Sliding Scale * hold oral antiglycemic * Glucose 6 Morning (3) Hyperlipidemia: Qualifiers: Hyperlipidemia type: unspecified Qualified Code(s): E78.5 - Hyperlipidemia, unspecified Code(s): E78.5 - Hyperlipidemia, unspecified Status: Acute Assessment and Plan: * continue home medication stable (4) CHF (congestive heart failure): Qualifiers: Heart failure chronicity: acute on chronic Heart failure type: unspecified Qualified Code(s): I50.9 - Heart failure, unspecified Code(s): I50.9 - Heart failure, unspecified Status: Acute Assessment and Plan: * BNP 3554 * lasix (5) Anxiety and depression: Code(s): F41.9 - Anxiety disorder, unspecified; F32.9 - Major depressive disorder, single episode, unspecified Status: Acute Assessment and Plan: * Will order antidepressant * monitor pt to discuss with pcp on depression as son Oct 09 (6) Atrial flutter: Qualifiers: Atrial flutter type: unspecified Qualified Code(s): I48.92 - Unspecified atrial flutter Code(s): I48.92 - Unspecified atrial flutter Status: Acute Assessment and Plan: * Beta Block * on anticoagulation * on Telemetry (7) UTI (urinary tract infection): Code(s): N39.0 - Urinary tract infection, site not specified Status: Acute Assessment and Plan: * IV antibiotics * increase fluids * avoid caffeine (8) Hypokalemia: Code(s): E87.6 - Hypokalemia Status: Acute Assessment and Plan: * Potassium 2.9 * Decrease Lasix to 40 mg daily * Increase potassium to 20 mEq twice daily * Will reevaluate in the morning Subjective Date/time seen: 11/08/21 09:21 Interval history: Patient blood pressure slightly better canceled the norvasc and started Lopressor. Order placed for a echo today and awaiting for lab results. we will continue t monitor patient level. 2Blood Pressure still remains high I have added Norvasc to her today potassium slightly low decrease Lasix increase potassium. Patient states she is very tired patient is bradycardic we will continue to monitor to see if we can address his blood pressure. Patient states she is feeling better than she has been. Patient is sitting in recliner chair she is very pale hemoglobin is normal patient is on room air we will continue to monitor Exam Narrative: HEAD:Normocephalic, atraumatic. EYES: PERRLA and EOMI. ENT: Nares clear, no rhinorrhea or epistaxis. Mucous membranes moist. NECK: Supple. CHEST: Clear to auscultation. No respiratory distress. HEART: Irregular rate and rhythm.. Norm
--- NOTE | 2021-11-08 09:21 | WPDPN ---
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 Qualified Code(s): E11.9 - Type 2 diabetes mellitus without complications; Z79.4 - penitentiary (current) use of insulin Code(s): E11.9 - Type 2 diabetes mellitus without complications Status: Acute Assessment and Plan: Accu check achs Sliding Scale hold oral antiglycemic Glucose 6 Morning (3) Hyperlipidemia: Qualifiers: Hyperlipidemia type: unspecified Qualified Code(s): E78.5 - Hyperlipidemia, unspecified Code(s): E78.5 - Hyperlipidemia, unspecified Status: Acute Assessment and Plan: continue home medication stable (4) CHF (congestive heart failure): Qualifiers: Heart failure chronicity: acute on chronic Heart failure type: unspecified Qualified Code(s): I50.9 - Heart failure, unspecified Code(s): I50.9 - Heart failure, unspecified Status: Acute Assessment and Plan: BNP 3554 lasix (5) Anxiety and depression: Code(s): F41.9 - Anxiety disorder, unspecified; F32.9 - Major depressive disorder, single episode, unspecified Status: Acute Assessment and Plan: Will order antidepressant monitor pt to discuss with pcp on depression as son Oct 09 (6) Atrial flutter: Qualifiers: Atrial flutter type: unspecified Qualified Code(s): I48.92 - Unspecified atrial flutter Code(s): I48.92 - Unspecified atrial flutter Status: Acute Assessment and Plan: Beta Block on anticoagulation on Telemetry (7) UTI (urinary tract infection): Code(s): N39.0 - Urinary tract infection, site not specified Status: Acute Assessment and Plan: IV antibiotics increase fluids avoid caffeine (8) Hypokalemia: Code(s): E87.6 - Hypokalemia Status: Acute Assessment and Plan: Potassium 2.9 Decrease Lasix to 40 mg daily Increase potassium to 20 mEq twice daily Will reevaluate in the morning Subjective Date/time seen: 11/08/21 09:21 Interval history: Patient blood pressure slightly better canceled the norvasc and started Lopressor. Order placed for a echo today and awaiting for lab results. we will continue t monitor patient level. 11/07/2021lood Pressure still remains high I have added Norvasc to her today potassium slightly low decrease Lasix increase potassium. Patient states she is very tired patient is bradycardic we will continue to monitor to see if we can address his blood pressure. Patient states she is feeling better than she has been. Patient is sitting in recliner chair she is very pale hemoglobin is normal patient is on room air we will continue to monitor Exam Narrative: HEAD:Normocephalic, atraumatic. EYES: PERRLA and EOMI. ENT: Nares clear, no rhinorrhea or epistaxis. Mucous membranes moist. NECK: Supple. CHEST: Clear to auscultation. No respiratory distress. HEART: Irregular rate and rhythm.. Normal peripheral pulses. ABDOMEN: Soft, nontender, nondistended, normal active bowel sounds. EXTREMITIES: Normal range of motion. trace edema to bilateral legs . SKIN: Warm, dry, no rash. Patient is very Pale NEURO: No focal deficits. Alert and oriented x3. Objective Data Vital Signs Vital Signs: Vital Signs - 24 hr 11/07/21 16:00 11/07/21 20:00 11/08/21 00:00 Temperature 97.9 F 98.1 F Pulse Rate 80 80 64 Respiratory Rate 95 H 16 Blood Pressu
[2021-11-08 09:32] LABS: Anion Gap 7 mmol/L (8-16); Blood Urea Nitrogen 11 mg/dL (7-18); Calcium 8.2 mg/dL (8.5-10.1); Carbon Dioxide 32 mmol/L (21-32); Chloride 104 mmol/L (98-108); Estimated CRCL calculation 40 ml/min; Estimated Glomerular Filt Rate 49; Glucose 190 mg/dL (70-99); Osmolality Calculated 300 mOsm/kg (285-295); Potassium 3.5 mmol/L (3.5-5.1); Sodium 143 mmol/L (136-145)
[2021-11-08 10:03] VITALS: PULSE 82
[2021-11-08] MEDS: METOPROLOL TARTRATE 12.5 MG TABLET PO ×2 (10:03→20:34)
--- NOTE | 2021-11-08 10:06 | PC.NURSE ---
Pt sitting in chair, SBA c walker and gait belt to BR, then back to chair, pt tolerates well and has no c/o at this time. Metoprolol given as per order. Pt watching TV and call moe in pt reach.
--- NOTE | 2021-11-08 11:32 | PC.NURSE ---
BS check at 237.
[2021-11-08 11:34] LABS: Glucose Point of Care 237 mg/dl (65-105)
--- NOTE | 2021-11-08 15:30 | ECHO_ITS ---
Patient Info Name: Teri Harrington Age: 76 years : 1945 Gender: Female Ht: 65 in Wt: 168 lbs BSA: 1.89 m2 HR: 52 bpm BP: 183 / 76 mmHg Technical Quality: Good Exam Date: 11/08/2021 1:27 PM Exam Location: [facility] Patient Status: Inpatient Admit Date: 11/05/2021 Staff Ordering Physician: Smith Buitrago NP Wig Dresser: Janes Pappas RDCS, RT Attending Provider: Mehran Dixon MD Referring Physician: Iftikhar RUEDA; Exam Type: CA echo doppler color flow Study Info Indications I10 - Essential (primary) hypertension Complete two-dimensional, color flow and Doppler transthoracic echocardiogram is performed. Strain analysis performed. Summary 1. Complete two-dimensional, color flow and Doppler transthoracic echocardiogram is performed. 2. Left ventricular chamber dimension is normal. 3. Left ventricular systolic function is normal, estimated at 55-60%. 4. There is moderately increased left ventricular wall thickness. 5. The left ventricular diastolic function is abnormal. 6. E/e' 17 is elevated. 7. Global longitudinal strain is abnormal at -12.4%. 8. Right ventricular systolic function is mildly reduced and with abnormal TAPSE 1.4 cm. 9. Left atrial chamber dimension is mildly enlarged. 10. Right atrial chamber dimension is mildly enlarged. 11. There is moderate aortic valve sclerosis. 12. There is mild-moderate aortic valve stenosis with a peak velocity of 140 cm/s, mean gradient of 5 mmHg, and aortic valve area of 1.4 cm2. 13. The mitral valve has moderately calcified annulus. 14. There is mild mitral valve regurgitation. 15. There is mild tricuspid valve regurgitation. 16. Mild pulmonary hypertension, estimated pulmonary arterial systolic pressure is 46 mmHg. Left Ventricle E/e' 17 is elevated. Global longitudinal strain is abnormal at -12.4%. Left ventricular chamber dimension is normal. Left ventricular systolic function is normal, estimated at 55-60%. There is moderately increased left ventricular wall thickness. The left ventricular diastolic function is abnormal. Right Ventricle Right ventricular systolic function is mildly reduced and with abnormal TAPSE 1.4 cm. Right ventricular chamber dimension is normal. Left Atria Left atrial chamber dimension is mildly enlarged. Right Atria Right atrial chamber dimension is mildly enlarged. Aortic Valve There is mild-moderate aortic valve stenosis with a peak velocity of 140 cm/s, mean gradient of 5 mmHg, and aortic valve area of 1.4 cm2. The aortic valve is trileaflet. There is moderate aortic valve sclerosis. There is no aortic valve regurgitation. Pulmonic Valve There is no pulmonic regurgitation. Mitral Valve The mitral valve has moderately calcified annulus. There is no mitral valve stenosis. There is mild mitral valve regurgitation. Tricuspid Valve There is mild tricuspid valve regurgitation. Mild pulmonary hypertension, estimated pulmonary arterial systolic pressure is 46 mmHg. Pericardium/Pleural There is no pericardial effusion. Inferior Vena Cava Normal inferior vena cava with >50% collapse upon inspiration consistent with normal right atrial pressure, 5 mmHg. Aorta The aortic root size at the sinus of Valsalva is normal. Left Ventricular Outflow Tract Name Value Normal
[2021-11-08 16:00] VITALS: BP 148/63; PULSE 51; RESP 14; TEMP 36.6; O2SAT 96
[2021-11-08 16:32] LABS: Glucose Point of Care 167 mg/dl (65-105)
[2021-11-08 20:34] VITALS: PULSE 62
[2021-11-08] MEDS: ACETAMINOPHEN 325 MG TABLET 650 MG PO (20:37)
[2021-11-08] MEDS: INSULIN GLARGINE (*BKC) 100 UNITS/ML 10 UNITS SUB-Q (20:44)
[2021-11-08 20:52] LABS: Glucose Point of Care 262 mg/dl (65-105)
[2021-11-09] VITALS: BP 155/67; PULSE 62; RESP 16; TEMP 36.7; O2SAT 94
[2021-11-09 05:37] LABS: Basophils Absolute Auto 0.01 K/mm3 (0.00-0.10); Basophils Percent Auto 0.2 % (0.0-1.0); Eosinophils Absolute Auto 0.14 K/mm3 (0.02-0.50); Eosinophils Percent Auto 3.2 % (1.0-6.0); Hematocrit 35.4 % (35.0-42.0); Hemoglobin 11.6 g/dL (11.7-13.8); Immature Granulocyte Absolute 0.01 K/mm3 (0.00-0.00); Immature Granulocyte Percent A 0.2 % (0.0-0.0); Mean Corpuscular HGB Conc 32.8 g/dL (32.0-36.0); Mean Corpuscular Hemoglobin 29.7 pg (27.0-31.0); Mean Corpuscular Volume 90.5 fL (78.0-102.0); Mean Platelet Volume 10.3 fl (9.2-11.8); Monocytes Absolute Auto 0.55 K/mm3 (0.10-0.90); Monocytes Percent Auto 12.5 % (2.0-11.0); Neutrophils Absolute Auto 2.2 K/mm3 (1.7-7.2); Neutrophils Percent Auto 49.9 % (50.0-70.0); Platelet Count Result 265 K/mm3 (150-420); Red Blood Count 3.91 M/mm3 (4.20-5.40); Red Cell Distribution Width 13.1 % (11.6-14.4); White Blood Count 4.4 K/mm3 (4.8-10.8)
[2021-11-09 05:56] LABS: Alanine Aminotransferase 11 U/L (14-59); Albumin Level 2.3 g/dL (3.4-5.0); Alkaline Phosphatase 76 U/L (46-116); Anion Gap 5 mmol/L (8-16); Aspartate Amino Transferase 10 U/L (15-37); Bilirubin,Total 0.3 mg/dL (0.00-1.00); Blood Urea Nitrogen 14 mg/dL (7-18); Calcium 8.1 mg/dL (8.5-10.1); Carbon Dioxide 32 mmol/L (21-32); Chloride 106 mmol/L (98-108); Estimated CRCL calculation 43 ml/min; Estimated Glomerular Filt Rate 54; Glucose 75 mg/dL (70-99); Osmolality Calculated 295 mOsm/kg (285-295); Potassium 4.1 mmol/L (3.5-5.1); Sodium 143 mmol/L (136-145); Total Protein 5.8 g/dL (6.4-8.2)
[2021-11-09 08:05] LABS: Glucose Point of Care 73 mg/dl (65-105)
[2021-11-09 09:41] VITALS: PULSE 70
[2021-11-09] MEDS: METOPROLOL TARTRATE 12.5 MG TABLET PO (09:41)
[2021-11-09] MEDS: buPROPion HCL XL (24 HR) 150 MG TABCR 300 MG PO (09:43)
[2021-11-09] MEDS: ESCITALOPRAM OXALATE 10 MG TABLET 20 MG PO (09:43)
[2021-11-09] MEDS: ROSUVASTATIN 10 MG TABLET 20 MG PO (09:44)
[2021-11-09] MEDS: lisinopriL 20 MG TABLET 40 MG PO (09:45)
[2021-11-09] MEDS: FUROSEMIDE 40 MG TABLET PO (09:45)
[2021-11-09] MEDS: POTASSIUM CHLORIDE 20 MEQ PACKET (FOR LIQUID) BY MOUTH (09:45)
[2021-11-09] MEDS: TOLNAFTATE 1% POWDER 45 GM BTL 1 APPLIC TOPICAL (09:46)
[2021-11-09 09:51] VITALS: BP 163/58; PULSE 70; RESP 18; O2SAT 98
--- NOTE | 2021-11-09 09:57 | P.DS_ITS ---
DS: Admitting Diagnosis Discharge Date 11/09/2021 Admitting Diagnosis Hypertensive urgency, hyperglycemia DS: Discharge Diagnosis Discharge Diagnosis (1) Hypertensive urgency: Code(s): I16.0 - Hypertensive urgency Status: Acute Assessment and Plan: * Home dosage of oral Cardizem * Home doses of lisinopril * Blood pressure remains high * Added Norvasc this morning discontinued already on CCB added Lopressor * Patient remains bradycardic we will review echo and may repeat in the morning (2) Type 2 diabetes mellitus: Qualifiers: Diabetes mellitus complication status: without complication Diabetes mellitus nursing home insulin use: with nursing home use Qualified Code(s): E11.9 - Type 2 diabetes mellitus without complications; 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.4 - 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 Code(s): E11.9 - Type 2 diabetes mellitus without complications Status: Acute Assessment and Plan: * Accu check achs * Sliding Scale * hold oral antiglycemic * Glucose 6 Morning (3) Hyperlipidemia: Qualifiers: Hyperlipidemia type: unspecified Qualified Code(s): E78.5 - Hyperlipidemia, unspecified Code(s): E78.5 - Hyperlipidemia, unspecified Status: Acute Assessment and Plan: * continue home medication stable (4) CHF (congestive heart failure): Qualifiers: Heart failure chronicity: acute on chronic Heart failure type: unspecified Qualified Code(s): I50.9 - Heart failure, unspecified Code(s): I50.9 - Heart failure, unspecified Status: Acute Assessment and Plan: * BNP 3554 * lasix (5) Anxiety and depression: Code(s): F41.9 - Anxiety disorder, unspecified; F32.9 - Major depressive disorder, single episode, unspecified Status: Acute Assessment and Plan: * Will order antidepressant * monitor pt to discuss with pcp on depression as son Oct 09 (6) Atrial flutter: Qualifiers: Atrial flutter type: unspecified Qualified Code(s): I48.92 - Unspecified atrial flutter Code(s): I48.92 - Unspecified atrial flutter Status: Acute Assessment and Plan: * Beta Block * on anticoagulation * on Telemetry (7) UTI (urinary tract infection): Code(s): N39.0 - Urinary tract infection, site not specified Status: Acute Assessment and Plan: * IV antibiotics * increase fluids * avoid caffeine (8) Hypokalemia: Code(s): E87.6 - Hypokalemia Status: Acute Assessment and Plan: * Potassium 2.9 * Decrease Lasix to 40 mg daily * Increase potassium to 20 mEq twice daily * Will reevaluate in the morning DS: Summary Hospital Course Reason for hospitalization: Hypertension,Diabetes Hospital Course: This is a 78-year-old female that was admitted to the hospital with hypertensive urgency as well as some confusion as to how she should be taking her blood pressure medication. Patient was treated with some IV medication and then we started her on a Lopressor. We also increased her dose of amiodarone. Patient's blood sugars also were high and low they waivered findings was found with diet. Ms. Harrington continued to improve we started her on some IV Lasix with help decrease some of her swelling. Patient had some depression noted I have increased her antidepressant medication. Later found out that she had not been taking her antidepressant and the doses we increased to 2 she was already on although was she was not taking it at that dose. Patient has continued to
--- NOTE | 2021-11-09 09:57 | PM.DS ---
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: with 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 living use Qualified Code(s): E11.9 - Type 2 diabetes mellitus without complications; Z79.4 - half-way (current) use of insulin Code(s): E11.9 - Type 2 diabetes mellitus without complications Status: Acute Assessment and Plan: Accu check achs Sliding Scale hold oral antiglycemic Glucose 6 Morning (3) Hyperlipidemia: Qualifiers: Hyperlipidemia type: unspecified Qualified Code(s): E78.5 - Hyperlipidemia, unspecified Code(s): E78.5 - Hyperlipidemia, unspecified Status: Acute Assessment and Plan: continue home medication stable (4) CHF (congestive heart failure): Qualifiers: Heart failure chronicity: acute on chronic Heart failure type: unspecified Qualified Code(s): I50.9 - Heart failure, unspecified Code(s): I50.9 - Heart failure, unspecified Status: Acute Assessment and Plan: BNP 3554 lasix (5) Anxiety and depression: Code(s): F41.9 - Anxiety disorder, unspecified; F32.9 - Major depressive disorder, single episode, unspecified Status: Acute Assessment and Plan: Will order antidepressant monitor pt to discuss with pcp on depression as son Oct 09 (6) Atrial flutter: Qualifiers: Atrial flutter type: unspecified Qualified Code(s): I48.92 - Unspecified atrial flutter Code(s): I48.92 - Unspecified atrial flutter Status: Acute Assessment and Plan: Beta Block on anticoagulation on Telemetry (7) UTI (urinary tract infection): Code(s): N39.0 - Urinary tract infection, site not specified Status: Acute Assessment and Plan: IV antibiotics increase fluids avoid caffeine (8) Hypokalemia: Code(s): E87.6 - Hypokalemia Status: Acute Assessment and Plan: Potassium 2.9 Decrease Lasix to 40 mg daily Increase potassium to 20 mEq twice daily Will reevaluate in the morning DS: Summary Hospital Course Reason for hospitalization: Hypertension,Diabetes Hospital Course: This is a 78-year-old female that was admitted to the hospital with hypertensive urgency as well as some confusion as to how she should be taking her blood pressure medication. Patient was treated with some IV medication and then we started her on a Lopressor. We also increased her dose of amiodarone. Patient's blood sugars also were high and low they waivered findings was found with diet. Ms. Harrington continued to improve we started her on some IV Lasix with help decrease some of her swelling. Patient had some depression noted I have increased her antidepressant medication. Later found out that she had not been taking her antidepressant and the doses we increased to 2 she was already on although was she was not taking it at that dose. Patient has continued to improve improved she is work with physical therapy no shortness of breath blood pressure slightly improved echocardiogram shows she has a EF of 55 to 60% patient is in need to follow-up with the primary care provider as well as see a guidance counselor. Patient's vitals prior to discharge 163/58, pulse is 70, respirations 18, temp is 98.0, 98% on room air. Patient's potassium was 4.1, sodium is 143, BUN is 14, creatinine is 0.99, glucose was 75,
[2021-11-09 11:42] LABS: Glucose Point of Care 227 mg/dl (65-105)
--- NOTE | 2021-11-09 13:02 | PC.NURSE ---
Patient ambulated to/from the bathroom using walker and gait belt with stand by assist. Patient tolerated well.
--- NOTE | 2021-11-09 14:10 | PC.NURSE ---
Reviewed discharge instructions including medications with patient, agreeable to plan for discharge and understands which medications were added and taken away, denies questions or concerns, discharging to sisters home with nephew, personal items returned to patient, left via wheel chair
--- NOTE | 2021-11-11 09:43 | PC.NURSE ---
Unable to contact for discharge call back.
== END 2021-11-09 14:10 | disposition home or self-care (01) | DRG 305 ==
LOC: CHSED 16:15 → CHS2ND 17:52
PROVIDERS: Nurse Practitioner Family; Admitting Provider Internal Medicine; Emergency Provider Family Medicine; PCP Internal Medicine; Visit Provider Internal Medicine
DX: I16.0 Hypertensive urgency (principal); I11.0 Hypertensive heart disease with heart failure; I50.9 Heart failure, unspecified; E11.9 Type 2 diabetes mellitus without complications; E78.5 Hyperlipidemia, unspecified; I48.92 Unspecified atrial flutter; F41.9 Anxiety disorder, unspecified; F32.A Depression, unspecified; Z87.891 Personal history of nicotine dependence; Z79.4 Long term (current) use of insulin; E87.6 Hypokalemia
CPT/HCPCS: 36415; 80048; 80053; 81001; 82010; 82948; 83880; 84484; 85025; 85027; 93005; 93306; 99285; A9270; J1644; J1815